=== PATIENT | male | born 1940 | race Caucasian/White ===

== ENCOUNTER → 2018-02-10 09:02 | Outpatient (CLI) | payer MEDICARE, OTHER, SELFPAY ==
--- NOTE | 2018-02-10 10:16 | DI.CT.S_ITS ---
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 TECHNIQUE: After the administration of oral and intravenous contrast, 5 mm thick sections acquired from the lung apices to the symphysis. 5 mm coronal and sagittal reformats were performed, with additional 7 mm coronal MIP reformats through the lungs. For radiation dose reduction, the following was used: automated exposure control, adjustment of mA and/or kV according to patient size. COMPARISON: [facility], [place], PET/CT WHOLE BODY EXTENDED, 11/18/2017, 10:24. [facility], [place], ABDOMEN/PELVIS WITH CONTRAST, 10/08/2017, 12:43. [facility], [place], CT IVP, 10/27/2005, 10:54. FINDINGS: Image quality: Excellent. CHEST: Lungs and pleura: No acute airspace opacities. There is centrally calcified right midlung granuloma. No pleural effusions or pneumothorax. Central and peripheral airways appear patent and normal in caliber. Mediastinum: Heart size is normal, with mild coronary artery atherosclerosis. No pericardial effusion. No mediastinal or hilar adenopathy by size criteria. Thoracic aorta and central pulmonary arteries are normal in size. Esophagus is normal in caliber. No hiatal hernia. Chest wall: Left PICC is present. No axillary or supraclavicular adenopathy by size criteria. Thyroid gland is normal in size. ABDOMEN: Solid organs: Liver is normal in size. 1.9 cm inferior right hepatic lobe simple cyst is again noted. Scattered additional punctate liver lesions are too small to further characterize, likely tiny cysts. Gallbladder is surgically absent. Biliary system is non dilated. Pancreas enhances normally. Spleen is normal in size and enhancement. No adrenal nodules. Kidneys demonstrate normal size and enhancement, without hydronephrosis. Peritoneum and bowel: Bowel loops demonstrate normal wall thickness and caliber. The appendix appears normal. There is mild sigmoid colon diverticulosis. No free fluid or air. Nodes and vessels: Confluent central mesenteric adenopathy has decreased in size from 14.5 x 9.3 cm, down to 9.1 x 4.0 cm. No new retroperitoneal or mesenteric adenopathy by size criteria. Aorta and inferior vena cava are normal in size, with moderate aortoiliac atherosclerosis. Circumaortic left renal veins are incidentally noted. Miscellaneous: No ventral hernias. PELVIS: Genitourinary: Bladder wall thickness is normal. Prostate gland is mildly prominent in overall size, with enhancing protruding nodule into the bladder base. Miscellaneous: No inguinal hernias or adenopathy. Bones: No suspicious bony lesions. No vertebral body compression fractures. IMPRESSION: 1. Confluent central mesenteric adenopathy has decreased but not completely resolved, consistent with partial tumor response to therapy. 2. Mild sigmoid colon diverticulosis. 3. Protruding prostate nodule into the bladder base probably reflects benign prostatic hyperplasia. Prostate carcinoma cannot be excluded based on CT imaging appearances. 4. 1.9 cm incidental inferior right hepatic lobe simple cyst. Dictated by: Tobi Umana M.D. on 02/10/2018 at 11:07 Approved by: Tobi Umana M.D. on 02/10/2018 at 11:20
== END ==
PROVIDERS: Family Provider Family Medicine; PCP Family Medicine; Visit Provider Internal Medicine Hematology & Oncology
DX: C85.90 Non-Hodgkin lymphoma, unspecified, unspecified site (principal); K57.30 Diverticulosis of large intestine without perforation or abscess without bleeding; N40.0 Benign prostatic hyperplasia without lower urinary tract symptoms; K76.89 Other specified diseases of liver
CPT/HCPCS: 71260; 74177; Q9967

== ENCOUNTER → 2018-05-06 11:00 | Outpatient (CLI) | payer MEDICARE, OTHER, SELFPAY ==
[2018-05-06 12:08] LABS: Add Manual Diff / Slide Review NO; Basophils Percent Auto 0.3 % (0-2); Eosinophils Percent Auto 7.2 % (2-4); Hematocrit 38.2 % (41-53); Lymphocytes Percent Auto 11.6 % (25-40); Mean Corpuscular Hemoglobin 29.6 PG (26-34); Mean Corpuscular Volume 87.1 fL (80-100); Monocytes Percent Auto 15.1 % (3-14); Neutrophils Absolute Auto 3300 /uL (3000-5900); Neutrophils Percent Auto 65.8 % (50-75); Platelet Count 203 X10^3/uL (150-400); Red Blood Cell Count 4.39 X10^6/uL (4.5-5.9); Red Cell Distribution Width 16.6 % (11.6-14.8)
[2018-05-06 12:28] LABS: Alanine Aminotransferase 36 IU/L (21-72); Albumin 3.9 g/dL (3.5-5.0); Albumin Globulin Ratio 1.3 (1.0-2.8); Alkaline Phosphatase 64 U/L (38-126); Aspartate Aminotransferase 33 IU/L (17-59); Bilirubin Total 0.8 mg/dL (0.2-1.3); Blood Urea Nitrogen 16 mg/dL (9-20); Calcium 9.1 mg/dL (8.4-10.2); Carbon Dioxide 30 mmol/L (22-32); Chloride 104 mmol/L (98-107); Estimated Glomerular Filt Rate > 60.0 mL/min (>60); Glucose 104 mg/dL (80-110); HEMOLYSIS < 15 (0-50); Lactate Dehydrogenase 456 U/L (313-618); Potassium 4.5 mmol/L (3.4-5.1); Sodium 144 mmol/L (137-145); Total Protein 6.9 g/dL (6.3-8.2)
--- NOTE | 2018-05-06 15:05 | PC.NURSE ---
Labs stable when compared to 03/16 and 04/12 results. follow up with provider on 05/12
== END ==
PROVIDERS: Nurse Practitioner Gerontology; Family Provider Family Medicine; PCP Family Medicine; Visit Provider Internal Medicine Hematology & Oncology
DX: C85.80 Other specified types of non-Hodgkin lymphoma, unspecified site (principal)
CPT/HCPCS: 36415; 80053; 83615; 85025

== ENCOUNTER 2018-09-17 09:39 | Day surgery (SDC) | payer MEDICARE, OTHER, SELFPAY ==
[2018-09-17 09:57] VITALS: BP 154/85; PULSE 97; RESP 18; TEMP 36.5; O2SAT 99; BMI 24.3
[2018-09-17] MEDS: SODIUM CHLORIDE 0.9% 1,000 ML 200 ML IV (09:57)
--- NOTE | 2018-09-17 11:37 | PM.HP.1 ---
History of Present Illness Date Patient Seen: 09/17/18 Time Patient Seen: 11:37 Chief complaint: [id number] Narrative: Patient is a gentleman here for screening colonoscopy. Last exam was 5 and half years ago. He has had polyps removed in the past. Patient History Medical History GERD (gastroesophageal reflux disease) (Chronic) History of deviated nasal septum (Chronic) Hypertension (Chronic) Surgical History Hx laparoscopic cholecystectomy (Chronic) Family & Social History Family History: Reviewed 09/17/18 by Drew Atkins MD Social History: household members spouse Meds Home Medications Medication Instructions Recorded Confirmed Type aspirin 81 mg PO QDAY #0 12/24/12 09/17/18 History doxazosin [Cardura] 8 mg PO QDAY #0 12/24/12 09/17/18 History candesartan [Atacand] 4 mg PO QDAY #0 10/22/17 09/17/18 History lansoprazole 30 mg PO QDAY #0 10/22/17 09/17/18 History trazodone 50 mg PO PRN PRN #0 11/09/17 07/06/18 History triamcinolone acetonide 1 lalo TOPICAL PRN PRN #0 11/09/17 07/06/18 History B.breve-L.acid-L.rham-S.thermo 1 tab PO DAILY 01/19/18 09/17/18 History [Probiotic] melatonin 1 mg PO BEDTIME PRN MDD 1 01/19/18 09/17/18 History multivitamin 1 tab PO DAILY 01/19/18 09/17/18 History Allergies Allergy/AdvReac Type Severity Reaction Status Date / Time No Known Drug Allergies Allergy Verified 09/17/18 10:15 Review of Systems Review of Systems All systems reviewed & are unremarkable except as noted in HPI and below Exam Vital Signs (past 8 hours): - 09/17/18 09:57 Temperature 97.7 F Pulse Rate 97 H Respiratory Rate 18 Blood Pressure 154/85 H Pulse Oximetry 99 Oxygen Delivery Method Room Air Narrative Exam Narrative: Co Operative no apparent distress. Lungs are clear to auscultation. No rales or rhonchi. Heart regular rate and rhythm without murmur gallop. Abdomen is soft nontender without mass. Alert oriented x3. Assessment & Plan Plan: Assessment/Plan Narrative: Plan colonoscopy. I have discussed the procedure and the rationale with the patient including risks of bleeding, perforation which would necessitate a major operation, failure to find remove all lesions and the potential to tattoo. They appeared to understand and wished to proceed.
--- NOTE | 2018-09-17 11:43 | PM.PREOP ---
Pre-operative Note Interval Note History & Physical reviewed/Exam performed by Physician: Yes Changes to H&P: No ASA Class (for procedural sedation): II
[2018-09-17] MEDS: MIDAZOLAM 5 MG/5 ML VIAL IV (11:54)
[2018-09-17] MEDS: fentaNYL 250 MCG/5 ML INJ IV (11:55)
--- NOTE | 2018-09-17 12:05 | PM.OP.ENDO ---
Operative Date/Time/Diagnoses Date of procedure: 09/17/18 Time of procedure: 12:05 Post-op diagnosis: same (Scattered diverticulosis. Few in number but throughout the colon.) Procedure & Clinicians Study performed: Colonoscopy Same procedure as scheduled: Yes Indications: Screening Surgeon: Drew Atkins Procedure Notes SCOAP/Timeout: Performed Procedure in detail: The patient was placed in the left lateral decubitus position and underwent IV sedation directed by the surgeon consisting of fentanyl and Versed. Digital exam was unremarkable except he has an enlarged prostate. The scope was inserted and advanced through the rectum into the sigmoid, descending, transverse, and ascending colon. Pressure was applied we made our way into the cecum. The cecum was reached identified by the ileocecal valve and the appendiceal opening. The ileocecal valve was successfully cannulated. The terminal ileum was normal in appearance. The scope was gradually brought out. No Polyps were found. The scope ultimately was retroflexed in the rectum. The appearance was normal. The scope was removed and the patient tolerated the procedure well Scope withdrawal time: 6.75 min Sedation minutes: 16 Findings: diverticulosis (Few in number but scattered throughout the colon) Specimen(s): none sent Complications: none Recommendations: Colonscopy in 5 years (Due to personal history of polyps) Follow up: as needed Disposition: PACU
[2018-09-17 12:07] VITALS: BP 113/67; PULSE 80; RESP 14; TEMP 36.5; O2SAT 95
[2018-09-17 12:13] VITALS: BP 117/72; PULSE 82; RESP 14; O2SAT 94
[2018-09-17 12:22] VITALS: BP 123/71; PULSE 80; RESP 12; O2SAT 95
[2018-09-17 12:28] VITALS: BP 118/64; PULSE 73; RESP 14; TEMP 36.7; O2SAT 95
[2018-09-17 12:51] VITALS: BP 125/72; PULSE 66; RESP 18; O2SAT 97
== END 2018-09-17 13:00 | disposition home or self-care (01) ==
PROVIDERS: Family Provider Family Medicine; PCP Family Medicine; Visit Provider Specialist
PROC: 0DJD8ZZ Inspection of Lower Intestinal Tract, Via Natural or Artificial Opening Endoscopic (ICD-10-PCS; CPT 45378; principal; 2018-09-17 10:45)
DX: Z86.010 Personal history of colon polyps (principal); K57.30 Diverticulosis of large intestine without perforation or abscess without bleeding; I10 Essential (primary) hypertension
CPT/HCPCS: G0105; 99152; J2250; J3010

== ENCOUNTER → 2019-01-01 10:06 | Outpatient (CLI) | payer MEDICARE, OTHER, SELFPAY | PROVIDERS: Family Provider Family Medicine; PCP Family Medicine; Visit Provider Physician Assistant | DX: R30.0 Dysuria (principal) | CPT/HCPCS: 87086 ==

== ENCOUNTER → 2019-07-22 09:01 | Outpatient (CLI) | payer MEDICARE, OTHER, SELFPAY | PROVIDERS: Family Provider Family Medicine; PCP Family Medicine; Visit Provider Nurse Practitioner | DX: R31.9 Hematuria, unspecified (principal) | CPT/HCPCS: 87086 ==

== ENCOUNTER → 2019-07-22 09:47 | Outpatient (CLI) | payer MEDICARE, OTHER, SELFPAY ==
[2019-07-22 10:18] LABS: Add Manual Diff / Slide Review NO; Basophils Absolute Auto 0 /uL (0-100); Basophils Percent Auto 0.2 % (0-2); Eosinophils Absolute Auto 100 /uL (0-450); Eosinophils Percent Auto 1.3 % (2-4); Hematocrit 44.6 % (41-53); Hemoglobin 14.9 g/dL (13.5-17.5); Lymphocytes Absolute Auto 600 /uL (1100-4500); Lymphocytes Percent Auto 9.2 % (25-40); Mean Corpuscular HGB Conc 33.4 % (30-36); Mean Corpuscular Hemoglobin 28.3 PG (26-34); Mean Corpuscular Volume 84.8 fL (80-100); Monocytes Absolute Auto 600 /uL (0-900); Neutrophils Absolute Auto 5200 /uL (1500-7000); Neutrophils Percent Auto 80.3 % (50-75); Platelet Count 228 X10^3/uL (150-400); Red Blood Cell Count 5.26 X10^6/uL (4.5-5.9); Red Cell Distribution Width 14.5 % (11.6-14.8); White Blood Cell Count 6.4 X10^3/uL (4.5-11.0)
[2019-07-22 11:10] LABS: Alanine Aminotransferase 23 IU/L (<50); Albumin 4.3 g/dL (3.5-5.0); Albumin Globulin Ratio 1.5 (1.0-2.8); Alkaline Phosphatase 55 U/L (38-126); Aspartate Aminotransferase 24 IU/L (17-59); BUN Creatinine Ratio 18.2 (6-22); Bilirubin Total 1.1 mg/dL (0.2-1.3); Blood Urea Nitrogen 20 mg/dL (9-20); Calcium 9.4 mg/dL (8.4-10.2); Carbon Dioxide 29 mmol/L (22-32); Chloride 105 mmol/L (98-107); Estimated Glomerular Filt Rate > 60.0 mL/min (>60); Globulin 2.9 g/dL (1.7-4.1); Glucose 89 mg/dL (80-110); HEMOLYSIS < 15 (0-50); Potassium 4.2 mmol/L (3.4-5.1); Sodium 142 mmol/L (137-145); Total Protein 7.2 g/dL (6.3-8.2)
[2019-07-25 12:05] LABS: Prostate Specific Antigen 3.18 ng/mL (0.10-4.00)
== END ==
PROVIDERS: Family Provider Family Medicine; PCP Family Medicine; Visit Provider Nurse Practitioner
DX: R31.9 Hematuria, unspecified (principal); C85.90 Non-Hodgkin lymphoma, unspecified, unspecified site
CPT/HCPCS: 36415; 80053; 84153; 85025; 87086

== ENCOUNTER → 2019-09-13 08:53 | Outpatient (CLI) | payer MEDICARE, OTHER, SELFPAY ==
[2019-09-13 09:43] LABS: Alanine Aminotransferase 22 IU/L (<50); Albumin 4.3 g/dL (3.5-5.0); Albumin Globulin Ratio 1.7 (1.0-2.8); Alkaline Phosphatase 60 U/L (38-126); Aspartate Aminotransferase 25 IU/L (17-59); BUN Creatinine Ratio 15.8 (6-22); Bilirubin Total 0.7 mg/dL (0.2-1.3); Blood Urea Nitrogen 19 mg/dL (9-20); Calcium 9.2 mg/dL (8.4-10.2); Carbon Dioxide 28 mmol/L (22-32); Chloride 105 mmol/L (98-107); Estimated Glomerular Filt Rate 58.7 mL/min (>60); Globulin 2.6 g/dL (1.7-4.1); Glucose 103 mg/dL (80-110); HEMOLYSIS < 15 (0-50); Potassium 4.1 mmol/L (3.4-5.1); Sodium 141 mmol/L (137-145); Total Protein 6.9 g/dL (6.3-8.2)
--- NOTE | 2019-09-13 10:06 | DI.CT.S_ITS ---
PROCEDURE: CT CHEST ABD PEL W CON INDICATIONS: follow up lymphoma TECHNIQUE: After the administration of oral and intravenous contrast, 5 mm thick sections acquired from the lung apices to the symphysis. 5 mm coronal and sagittal reformats were performed, with additional 7 mm coronal MIP reformats through the lungs. For radiation dose reduction, the following was used: automated exposure control, adjustment of mA and/or kV according to patient size. COMPARISON: [facility], [place], ABDOMEN/PELVIS WITH CONTRAST, 10/08/2017, 12:43. [place], [place], PET/CT WHOLE BODY EXTENDED, 11/18/2017, 10:24. [place], [place], PET NECK TO MID THIGH, 05/07/2018, 9:52. [facility], [place], CT CHEST ABD PEL W CON, 02/10/2018, 10:02. FINDINGS: Image quality: Excellent. CHEST: Lungs and pleura: There is a 7 mm nodule in the right middle lobe, unchanged. A 4 mm lingular nodule is also stable. No acute airspace opacities. No pleural effusions or pneumothorax. Central and peripheral airways appear patent and normal in caliber. Mediastinum: Heart size is normal. No pericardial effusion. No mediastinal or hilar adenopathy by size criteria. Thoracic aorta and central pulmonary arteries are normal in size. Esophagus is normal in caliber. Small hiatal hernia. Chest wall: No axillary or supraclavicular adenopathy by size criteria. Thyroid gland is normal. ABDOMEN: Solid organs: Multiple low density nodules seen liver, secondary hepatic cyst. Liver is normal in size and enhancement. Gallbladder is surgically absent. Biliary system is non dilated. Pancreas enhances normally. Spleen is normal in size and enhancement. No adrenal nodules. Kidneys demonstrate normal size and enhancement, without hydronephrosis. Peritoneum and bowel: Bowel loops demonstrate normal wall thickness and caliber. There are scattered colonic diverticula. No free fluid or air. Nodes and vessels: No retroperitoneal adenopathy by size criteria. There is irregular mesenteric thickening. A 1.7 cm nodule in the mesenteric in the left abdoment, which demonstrates interval decreased in size (previously measured to 2.2 cm on 05/07/2018 and 2.8 cm on 02/10/2018). Aorta and inferior vena cava are normal in size. Miscellaneous: No ventral hernias. PELVIS: Genitourinary: Bladder wall thickness is normal. Prostate is enlarged. Again noted is a protruding nodule in the bladder base at midline, presumably related to enlarged prostate. Miscellaneous: No inguinal hernias or adenopathy. Bones: No suspicious bony lesions. No vertebral body compression fractures. IMPRESSION: 1. There is residual mesenteric thickening. A 1.7 cm mesenteric nodule has shown progressive decrease in size. No new lymphadenopathy in thorax, abdomen or pelvis. 2. Stable pulmonary nodules. 3. Diverticulosis without diverticulitis. 4. Prostate enlargement. There is a protruding nodule in the bladder base at midline, presumably related to enlarged prostate. Dictated by: Cathryn Teran M.D. on 09/13/2019 at 17:12 Approved by: Cathryn Teran M.D. on 09/13/2019 at 17:58
== END ==
PROVIDERS: Family Provider Family Medicine; PCP Family Medicine
DX: C85.90 Non-Hodgkin lymphoma, unspecified, unspecified site (principal); R91.8 Other nonspecific abnormal finding of lung field; K57.90 Diverticulosis of intestine, part unspecified, without perforation or abscess without bleeding; K76.89 Other specified diseases of liver; N40.0 Benign prostatic hyperplasia without lower urinary tract symptoms; Z90.49 Acquired absence of other specified parts of digestive tract
CPT/HCPCS: 36415; 71260; 74177; 80053; Q9967

== ENCOUNTER → 2019-10-18 10:32 | Outpatient (CLI) | payer MEDICARE, OTHER, SELFPAY ==
--- NOTE | 2019-10-18 10:36 | DI.RAD.S_ITS ---
PROCEDURE: XR CHEST 2V INDICATIONS: r/o pneumonia TECHNIQUE: 2 views of the chest were acquired. COMPARISON: [facility], , CHEST 1 VIEW, 01/22/2014, 19:22. FINDINGS: Surgical changes and devices: Post cholecystectomy clips are noted in the right upper abdomen. Lungs and pleura: Lungs are clear. No pleural effusions or pneumothorax. Mediastinum: Mediastinal contours are normal. Heart size is normal. Bones and chest wall: No suspicious bony abnormalities. Soft tissues appear unremarkable. IMPRESSION: Stable radiographic evaluation of the chest without acute cardiopulmonary abnormalities or focal airspace disease. Dictated by: Rashad Patterson M.D. on 10/18/2019 at 14:36 Approved by: Rashad Patterson M.D. on 10/18/2019 at 14:37
== END ==
PROVIDERS: Family Provider Family Medicine; PCP Family Medicine; Referring Provider Physician Assistant; Visit Provider Physician Assistant
DX: J40 Bronchitis, not specified as acute or chronic (principal)
CPT/HCPCS: 71046

== ENCOUNTER → 2020-07-17 10:50 | Outpatient (CLI) | payer MEDICARE, OTHER, SELFPAY ==
--- NOTE | 2020-07-17 | DI.RAD.S_ITS ---
PROCEDURE: XR LUMBAR SPINE 2-3V INDICATIONS: low back pain TECHNIQUE: 3 views of the lumbar spine were acquired. COMPARISON: None. FINDINGS: Bones: 5 [id number] vertebrae are present. There is approximately 10? of convex right lumbar spine scoliosis. Mild L1-L2, L2-L3 and L3-L4 retrolisthesis. No vertebral body compression fractures. No suspicious bony lesions. Severe L1-L2 and L2-L3 degenerate disc disease. Moderate L3-L4 and L4-L5 degenerative disc disease. Mild L5-S1 degenerative disc disease. Moderate L3-L4, L4-L5 and L5-S1 facet arthropathy. Soft tissues: Overlying bowel gas pattern is normal. No suspicious soft tissue calcifications. Cholecystectomy clips. IMPRESSION: 1. Convex right scoliosis. 2. Multilevel degenerative disease. 3. Multilevel facet arthropathy. 4. No fracture. No acute osseous lesion. If symptoms and/or clinical suspicion for pathology persists, evaluation with MRI may be helpful for further assessment. Dictated by: Lavern Hoffman MD, PhD on 07/17/2020 at 17:07 Approved by: Lavern Hoffman MD, PhD on 07/17/2020 at 17:09
== END ==
PROVIDERS: Family Provider Family Medicine; PCP Family Medicine; Referring Provider Family Medicine; Visit Provider Family Medicine
DX: M54.5 Low back pain (principal); M41.86 Other forms of scoliosis, lumbar region; M51.36 Other intervertebral disc degeneration, lumbar region; M51.37 Other intervertebral disc degeneration, lumbosacral region; M47.816 Spondylosis without myelopathy or radiculopathy, lumbar region; M47.817 Spondylosis without myelopathy or radiculopathy, lumbosacral region
CPT/HCPCS: 72100

== ENCOUNTER 2020-08-29 09:45 | Outpatient (RCR) | payer MEDICARE, OTHER, SELFPAY ==
--- NOTE | 2020-06-21 10:46 | PT.OIE ---
Current Diagnoses Pain in right knee (06/21/20) Low back pain (06/21/20) Abnormal posture (06/21/20) Weakness (06/21/20) Past Medical History (Last Updated 09/26/19 @ 12:13 by Anna Cintron PA-C) Bronchitis (Acute) Conjunctivitis (Acute) GERD (gastroesophageal reflux disease) (Chronic) History of deviated nasal septum (Chronic) Hypertension (Chronic) Past Surgical History (Last Reviewed 07/22/19 @ 09:42 by FRANCO Landa) Hx laparoscopic cholecystectomy (Chronic) Visit Care Team Role Provider Type Jose Cruz Short MD Attending Provider Physician Family Provider Primary Care Provider Referring Provider Specialty: [facility] Practice Address: [address] [place] [address] [place], [place], [facility] Email: [email or web address] [facility] Initial Evaluation PT-OP-A Visit Information Start: 06/21/20 08:02 Freq: Status: Active Protocol: Document 06/21/20 08:15 [facility] (Rec: 06/21/20 10:20 [facility] [id number]) Out-Patient Physical Therapy Visit Information Visit Information Visit Type Initial Evaluation Visit Note 09/16 Visit Start Time 09:05 Visit Stop Time 10:10 Total Visit Minutes 65 Visit Number 1 Number of GRIP Visits 0 PT-OP-B Current Condition Start: 06/21/20 08:02 Freq: Status: Active Protocol: Document 06/21/20 08:15 [facility] (Rec: 06/21/20 10:20 [facility] [id number]) Current Condition History of Current Condition Onset Date mid Apr Current Complaints med R knee, LBP History of Current Condition Pt reports knee and back pain started aroundthe same timea nd they appear around the same time. Pt reports he was doing a lot of painting and climbing and moving ladders and also does knee ext & flex machines. He does those exercises often though feels like ladder was more likely culpret. Sometimes when stretching and doing exercises he feels the pain a little bit. Pt tries to do windshield wiper exercise but that is painful to LB. Pt had a fall in ' and fell and hit in LB and conclusion was osteoporosis. Pt reprots the odd thing is when he has clicking in LB when he walks ( can walk2-3 miles) that he feels on L side with RLE movement. Sometimes it is every RLE step sometimes more intermittent. Pt reprots feels like it is ligaments popping over bone. Pt bikes and hikes and can bike 20 miles without knee pain. Knee used ot bother him when driving Prior Treatments and Tests Chiropractor but min relief - Xrays done and chiropractor doesn't think it is nerve pain Treatment Goals Patient/Caregiver Goals Stay active and determine whats cuasing pain and clicking, dec pain Personal Factors Other Personal Factors That May Effect Non-Hodgkin's Lymphoma, Therapy/Recovery history of LBP, gallbladder removal PT-OP-C Subjective Start: 06/21/20 08:02 Freq: Status: Active Protocol: Document 06/21/20 08:15 [facility] (Rec: 06/21/20 10:20 [facility] [id number]) Patient Questionnaires Lower Extremity Functional Scale LEFS Score 77 Oswestry Low Back Index Oswestry Score 5/50 Oswestry Impairment 1 to 19% Impaired (Score 1-19) OP-PT Pain Assessment Location low back Pain Location Details Lumbar region Intensity 4 Scale Used Numeric (0 - 10) Description Aching Frequency Occasional Other Pain Aggravating Factors 1st thing in AM, crunches, carrying ladders Pain Alleviating Factors Medication Other Pain Alleviating Factors stretching R knee Pain Location Details med Intensity 3 Scale Used Numeric (0 - 10) Description With Movement Description- Other sometimes more sharp in certain positions Frequency Occasional Pain Duration only during activity Radiating Location occasional to lower leg Pain Aggravating Factors Walking,Stair Climbing Other Pain Aggravating Factors turn in certain directions, squatting down Pain Alleviating Factors Medication PT-OP-D Balance Start: 06/21/20 08:02 Freq: Status: Active Protocol: Document 06/21/20 08:15 [facility] (Rec: 06/21/20 10:20 [facility] [id number]) Balance Tests Single Limb Standing Single Limb- Right 7 sec Single Limb- Left 11 sec PT-OP-F Manual Assessment Start: 06/21/20 08:02 Freq: Status: Active Protocol: Document 06/21/20 08:15 [facility] (Rec: 06/21/20 10:20 [facility] [id number]) Manual Assessments Soft Tissue Assessment Soft Tissue Mobility Assessment med joint line tenderness Joint Mobility Assessment Joint Mobility Assessment L iliac crest slightly higher; equal greater trochanters PT-OP-G Mobility & Gait Start: 06/21/20 08:02 Freq: Status: Active Protocol: Document 06/21/20 08:15 [facility] (Rec: 06/21/20 10:20 [facility] [id number]) OP Gait Assessment Comments Gait Comments dec push off B; dec foot clearance PT-OP-J Posture/Palpation/Skin Start: 06/21/20 08:02 Freq: Status: Active Protocol: Document 06/21/20 08:15 [facility] (Rec: 06/21/20 10:20 [facility] [id number]) Posture Evaluation Kerry Postural Classification System Kerry Postural Classifications Posterior/Anterior Vertebral Compression Test 2 Elbow Flexion Test 2 Lumbar Protective Mechanism Left AP 2 Lumbar Protective Mechanism Right AP 2 Lumbar Protective Mechanism Left PA 2 Lumbar Protective Mechanism Right PA 2 PT-OP-K Range of Motion Start: 06/21/20 08:02 Freq: Status: Active Protocol: Document 06/21/20 08:15 [facility] (Rec: 06/21/20 10:20 [facility] [id number]) Lumbar Spine Range of Motion Lumbar Spine Active Degrees Flexion 60 Extension 22 Rotation Left 64 Rotation Right 63 Lateral Flexion Left 18 Lateral Flexion Right 19 Comments L discomfort w/R SB Knee Goniometric Range of Motion Knee Right Flexion Active (degrees) 133 Extension Active (degrees) 4 Comments pain w/ext Left Flexion Active (degrees) 137 Extension Active (degrees) 2 PT-OP-L Special Tests Start: 06/21/20 08:02 Freq: Status: Active Protocol: Document 06/21/20 08:15 [facility] (Rec: 06/21/20 10:20 [facility] [id number]) Special Tests Knee Special Tests Straight Leg Raise Test Results mod HS tightness on L with min on R PT-OP-M Strength Start: 06/21/20 08:02 Freq: Status: Active Protocol: Document 06/21/20 08:15 [facility] (Rec: 06/21/20 10:20 [facility] [id number]) Hip Strength Hip Manual Muscle Testing Right Flexion (L2) 4 Good Extension (S1) 4 Good Abduction 4+ Good+ Adduction 5 Normal External Rotation 4 Good Internal Rotation 4 Good Left Flexion (L2) 4 Good Extension (S1) 4- Good- Abduction 5 Normal Adduction 5 Normal External Rotation 4 Good Internal Rotation 4 Good Comments pain LB with ext Knee Strength Knee Manual Muscle Testing Right Flexion (S2) 4+ Good+ Extension (L3) 5 Normal Left Flexion (S2) 5 Normal Extension (L3) 5 Normal Ankle/Foot Strength Ankle and Foot Manual Muscle Testing Right Dorsiflexion (L4) 5 Normal Plantarflexion (S1) 5 Normal Left Dorsiflexion (L4) 5 Normal Plantarflexion (S1) 5 Normal PT-OP-Q Treatments Start: 06/21/20 08:02 Freq: Status: Active Protocol: Document 06/21/20 08:15 [facility] (Rec: 06/21/20 10:20 [facility] [id number]) Self-Care/Home Management Treatment Education Other Education edu re: importance of posture & how back and knee mechanics can affect eachother. Discussed reasons why unlikely n pain as pt was concerned. Discussed how PT can help. Discussed palpable difference w/R VMO & why that is a problem PT-OP-T Assessment and Plan Start: 06/21/20 08:02 Freq: Status: Active Protocol: Document 06/21/20 08:15 [facility] (Rec: 06/21/20 10:20 [facility] [id number]) Physical Therapy Assessment Rehab Potential Rehabilitation Potential Good Evaluation Complexity Number of Personal Factors/Comorbidities 3 or More Number of Body Systems Impaired 4 or More Clinical Presentation at Evaluation Stable Impairments Impairments Activity Tolerance,Balance, Functional Activities, Functional Mobility,Gait,Pain, Posture,ROM,Soft Tissue Mobility,Strength Goals posture Short Term Goal (STG) Pt will demonstrate improved posture as shown by 4/5 on VCT to dec strain on back. STG Duration 07/22/20 Retirement Goal (LTG) Pt will demonstrate good lifting mecahnics in order to dec strain on backa nd knee. LTG Duration 08/21/20 activities [employer] Work[employer] Goal (LTG) Pt will be able to do all typical activities (walking, squatting, housework) without LBP or knee pain. LTG Duration 08/21/20 strength Short Term Goal (STG) Pt will be indep with appropriate stretching and strengthening program STG Duration 07/22/20 Retirement Goal (LTG) Pt will have 5/5 LE strength Assessment Summary Assessment Pt presents with LBP and R knee pain that had an onset in Apr with no specific injury. He has noted some improvement with his general stretching and exercising, but wants to work with PT to fully dec pain and limit clicking and have an appropriate strengthening and stretching exercise for his body. Pt would benefit from skilled PT to work on gait mechanics, exercise form and mechanics, strength of LEs and core and inc overall mobility. Physical Therapy Plan Frequency and Duration Frequency of Treatment 1-2x/weeks Duration of Treatment 2 months Plan of Care Start Date 06/21/20 Plan of Care End Date 08/21/20 Therapeutic Interventions Therapeutic Interventions Aquatic Therapy,Balance Training,Gait Training,Home Exercise Program,Joint Mobilizations,Manual Therapy, Neuromuscular Re-education, Patient/Caregiver Education, Self-Care/Home Management,Soft Tissue Mobilization,Taping, Therapeutic Activities, Therapeutic Exercises Modalities Cold Pack/Ice Massage,Hot Packs Next Visit Focus/Plan Next Note Type Treatment Note Next Visit Plan work on form w/knee ext & flex wt machines, teach stretching exercises & work on TA activiation & facilition & posture-wall posture
--- NOTE | 2020-06-21 10:46 | PT.OPPOC ---
Physical, Occupational & Speech Therapy At [facility] Current Diagnoses Pain in right knee (06/21/20) Low back pain (06/21/20) Abnormal posture (06/21/20) Weakness (06/21/20) Visit Care Team Role Provider Type Jose Cruz Short MD Attending Provider Physician Family Provider Primary Care Provider Referring Provider Specialty: Family [facility] Address: [address] [place] [address], [facility] [place], [facility] Email: Plan Of Care PT-OP-T Assessment and Plan Start: 06/21/20 08:02 Freq: Status: Active Protocol: Document 06/21/20 08:15 [facility] (Rec: 06/21/20 10:20 [facility] [id number]) Physical Therapy Assessment Rehab Potential Rehabilitation Potential Good Evaluation Complexity Number of Personal Factors/Comorbidities 3 or More Number of Body Systems Impaired 4 or More Clinical Presentation at Evaluation Stable Impairments Impairments Activity Tolerance,Balance, Functional Activities, Functional Mobility,Gait,Pain, Posture,ROM,Soft Tissue Mobility,Strength Goals posture Short Term Goal (STG) Pt will demonstrate improved posture as shown by 4/5 on VCT to dec strain on back. STG Duration 07/22/20 Detention Goal (LTG) Pt will demonstrate good lifting mecahnics in order to dec strain on backa nd knee. LTG Duration 08/21/20 activities Sheet Rock Installer Goal (LTG) Pt will be able to do all typical activities (walking, squatting, housework) without LBP or knee pain. LTG Duration 08/21/20 strength Short Term Goal (STG) Pt will be indep with appropriate stretching and strengthening program STG Duration 07/22/20 Sheet Rock Installer Goal (LTG) Pt will have 5/5 LE strength Assessment Summary Assessment Pt presents with LBP and R knee pain that had an onset in Apr with no specific injury. He has noted some improvement with his general stretching and exercising, but wants to work with PT to fully dec pain and limit clicking and have an appropriate strengthening and stretching exercise for his body. Pt would benefit from skilled PT to work on gait mechanics, exercise form and mechanics, strength of LEs and core and inc overall mobility. Physical Therapy Plan Frequency and Duration Frequency of Treatment 1-2x/weeks Duration of Treatment 2 months Plan of Care Start Date 06/21/20 Plan of Care End Date 08/21/20 Therapeutic Interventions Therapeutic Interventions Aquatic Therapy,Balance Training,Gait Training,Home Exercise Program,Joint Mobilizations,Manual Therapy, Neuromuscular Re-education, Patient/Caregiver Education, Self-Care/Home Management,Soft Tissue Mobilization,Taping, Therapeutic Activities, Therapeutic Exercises Modalities Cold Pack/Ice Massage,Hot Packs Next Visit Focus/Plan Next Note Type Treatment Note Next Visit Plan work on form w/knee ext & flex wt machines, teach stretching exercises & work on TA activiation & facilition & posture-wall posture Plan of Care Dates Plan of Care Start Date 06/21/20 Plan of Care End Date 08/21/20 Electronically Signed by: Liz Knight, PT 06/21/20 1046 Please Sign and Return: I have reviewed this Plan of Care and certify that the skilled therapy services above are required to meet the patient?s needs. Physician Signature Date Printed Name and Credentials Clinical Instructor Signature Printed Name and Credentials
--- NOTE | 2020-06-27 11:01 | PT.OTN ---
Current Diagnoses Pain in right knee (06/27/20) Low back pain (06/27/20) Abnormal posture (06/27/20) Weakness (06/27/20) Physical Therapy Treatment Note PT-OP-A Visit Information Start: 06/21/20 08:02 Freq: Status: Active Protocol: Document 06/27/20 09:55 [facility] (Rec: 06/27/20 11:00 [facility] [id number]) Out-Patient Physical Therapy Visit Information Visit Information Visit Type Treatment Note Visit Note 10/17 Visit Start Time 09:52 Visit Stop Time 10:36 Total Visit Minutes 44 Visit Number 2 Number of RESTAURANT HOURLY TEAM MEMBER Visits 0 PT-OP-B Current Condition Start: 06/21/20 08:02 Freq: Status: Active Protocol: Document 06/21/20 08:15 [facility] (Rec: 06/21/20 10:20 [facility] [id number]) Current Condition History of Current Condition Onset Date mid Apr Current Complaints med R knee, LBP History of Current Condition Pt reports knee and back pain started aroundthe same timea nd they appear around the same time. Pt reports he was doing a lot of painting and climbing and moving ladders and also does knee ext & flex machines. He does those exercises often though feels like ladder was more likely culpret. Sometimes when stretching and doing exercises he feels the pain a little bit. Pt tries to do windshield wiper exercise but that is painful to LB. Pt had a fall in '98 and fell and hit in LB and conclusion was osteoporosis. Pt reprots the odd thing is when he has clicking in LB when he walks ( can walk2-3 miles) that he feels on L side with RLE movement. Sometimes it is every RLE step sometimes more intermittent. Pt reprots feels like it is ligaments popping over bone. Pt bikes and hikes and can bike 20 miles without knee pain. Knee used ot bother him when driving Prior Treatments and Tests Chiropractor but min relief - Xrays done and chiropractor doesn't think it is nerve pain Treatment Goals Patient/Caregiver Goals Stay active and determine whats cuasing pain and clicking, dec pain Personal Factors Other Personal Factors That May Effect Non-Hodgkin's Lymphoma, Therapy/Recovery history of LBP, gallbladder removal PT-OP-C Subjective Start: 06/21/20 08:02 Freq: Status: Active Protocol: Document 06/27/20 09:55 [facility] (Rec: 06/27/20 11:00 [facility] [id number]) OP-PT Subjective Patient Comments Patient Comments Pt reports he found that he did not get clicking when he bent over at back PT-OP-D Balance Start: 06/21/20 08:02 Freq: Status: Active Protocol: Document 06/21/20 08:15 [facility] (Rec: 06/21/20 10:20 [facility] [id number]) Balance Tests Single Limb Standing Single Limb- Right 7 sec Single Limb- Left 11 sec PT-OP-F Manual Assessment Start: 06/21/20 08:02 Freq: Status: Active Protocol: Document 06/21/20 08:15 [facility] (Rec: 06/21/20 10:20 [facility] [id number]) Manual Assessments Soft Tissue Assessment Soft Tissue Mobility Assessment med joint line tenderness Joint Mobility Assessment Joint Mobility Assessment L iliac crest slightly higher; equal greater trochanters PT-OP-G Mobility & Gait Start: 06/21/20 08:02 Freq: Status: Active Protocol: Document 06/21/20 08:15 [facility] (Rec: 06/21/20 10:20 [facility] [id number]) OP Gait Assessment Comments Gait Comments dec push off B; dec foot clearance PT-OP-J Posture/Palpation/Skin Start: 06/21/20 08:02 Freq: Status: Active Protocol: Document 06/21/20 08:15 [facility] (Rec: 06/21/20 10:20 [facility] [id number]) Posture Evaluation Kerry Postural Classification System Kerry Postural Classifications Posterior/Anterior Vertebral Compression Test 2 Elbow Flexion Test 2 Lumbar Protective Mechanism Left AP 2 Lumbar Protective Mechanism Right AP 2 Lumbar Protective Mechanism Left PA 2 Lumbar Protective Mechanism Right PA 2 PT-OP-K Range of Motion Start: 06/21/20 08:02 Freq: Status: Active Protocol: Document 06/21/20 08:15 [facility] (Rec: 06/21/20 10:20 [facility] [id number]) Lumbar Spine Range of Motion Lumbar Spine Active Degrees Flexion 60 Extension 22 Rotation Left 64 Rotation Right 63 Lateral Flexion Left 18 Lateral Flexion Right 19 Comments L discomfort w/R SB Knee Goniometric Range of Motion Knee Right Flexion Active (degrees) 133 Extension Active (degrees) 4 Comments pain w/ext Left Flexion Active (degrees) 137 Extension Active (degrees) 2 PT-OP-L Special Tests Start: 06/21/20 08:02 Freq: Status: Active Protocol: Document 06/21/20 08:15 [facility] (Rec: 06/21/20 10:20 [facility] [id number]) Special Tests Knee Special Tests Straight Leg Raise Test Results mod HS tightness on L with min on R PT-OP-M Strength Start: 06/21/20 08:02 Freq: Status: Active Protocol: Document 06/21/20 08:15 [facility] (Rec: 06/21/20 10:20 [facility] [id number]) Hip Strength Hip Manual Muscle Testing Right Flexion (L2) 4 Good Extension (S1) 4 Good Abduction 4+ Good+ Adduction 5 Normal External Rotation 4 Good Internal Rotation 4 Good Left Flexion (L2) 4 Good Extension (S1) 4- Good- Abduction 5 Normal Adduction 5 Normal External Rotation 4 Good Internal Rotation 4 Good Comments pain LB with ext Knee Strength Knee Manual Muscle Testing Right Flexion (S2) 4+ Good+ Extension (L3) 5 Normal Left Flexion (S2) 5 Normal Extension (L3) 5 Normal Ankle/Foot Strength Ankle and Foot Manual Muscle Testing Right Dorsiflexion (L4) 5 Normal Plantarflexion (S1) 5 Normal Left Dorsiflexion (L4) 5 Normal Plantarflexion (S1) 5 Normal PT-OP-Q Treatments Start: 06/21/20 08:02 Freq: Status: Active Protocol: Document 06/27/20 09:55 [facility] (Rec: 06/27/20 11:00 [facility] [id number]) Cardio Equipment Bicycle (Upright) Duration (Minutes) 4 Resistance 10 Seat Position 7 Gym Equipment Cable Column (Body Solid) Rows Resistance 30# Reps/Time 15 Leg Curl Resistance 30# Reps/Time 15 Leg Extension Resistance 30# B 10# single leg Reps/Time 10 ea Therapeutic Exercises Supine Exercises stretch Supine Exercise Name HS Side bilateral Reps/Minutes 30 sec bridge Side bilateral Reps/Minutes 15 Standing Exercises wall posture Standing Exercise Name w/modified pivot prone UE Side bilateral Reps/Minutes 15 Manual Therapy Treatment Soft Tissue Mobilization TFL Mobilization Type Strumming Intensity/Depth Moderate Body Position Supine Joint Mobilizations hip Joint L inf glide FM Body Position Supine Self-Care/Home Management Treatment Education Other Education edu to hold off from very advance abdomenal exercises and avoid back ext; edu to do gentle w/exercises & slow controlled motion, improtance of posture PT-OP-T Assessment and Plan Start: 06/21/20 08:02 Freq: Status: Active Protocol: Document 06/27/20 09:55 [facility] (Rec: 06/27/20 11:00 [facility] [id number]) Physical Therapy Assessment Goals posture Short Term Goal (STG) Pt will demonstrate improved posture as shown by 4/5 on VCT to dec strain on back. STG Duration 07/22/20 Halfway Goal (LTG) Pt will demonstrate good lifting mecahnics in order to dec strain on backa nd knee. LTG Duration 08/21/20 activities Platform Loader Goal (LTG) Pt will be able to do all typical activities (walking, squatting, housework) without LBP or knee pain. LTG Duration 08/21/20 strength Short Term Goal (STG) Pt will be indep with appropriate stretching and strengthening program STG Duration 07/22/20 Platform Loader Goal (LTG) Pt will have 5/5 LE strength Assessment Summary Assessment Pt had pain in L lat leg with B hip flex. Attempted to work on hip gliding d/t dec hip ROM before sacrum and innominate moved which helped with hip range but pt still had lat leg pain with hip flex. he required cuieng during all exercises for posture, slowing down and contorlling motion. Physical Therapy Plan Frequency and Duration Frequency of Treatment 1-2x/weeks Duration of Treatment 2 months Plan of Care Start Date 06/21/20 Plan of Care End Date 08/21/20 Next Visit Focus/Plan Next Note Type Treatment Note Next Visit Plan review exercises, manual for soft tissue and joint mobility , discuss sitting posture
--- NOTE | 2020-06-29 12:45 | PT.OTN ---
Current Diagnoses Pain in right knee (06/29/20) Low back pain (06/29/20) Abnormal posture (06/29/20) Weakness (06/29/20) Physical Therapy Treatment Note PT-OP-A Visit Information Start: 06/21/20 08:02 Freq: Status: Active Protocol: Document 06/29/20 13:25 [facility] (Rec: 06/29/20 13:57 [facility] [id number]) Out-Patient Physical Therapy Visit Information Visit Information Visit Type Treatment Note Visit Note 11/14 Visit Start Time 11:45 Visit Stop Time 12:40 Total Visit Minutes 50 Visit Number 3 Number of HAND GLUER AND SLICER Visits 1 PT-OP-B Current Condition Start: 06/21/20 08:02 Freq: Status: Active Protocol: Document 06/21/20 08:15 [facility] (Rec: 06/21/20 10:20 [facility] [id number]) Current Condition History of Current Condition Onset Date mid Apr Current Complaints med R knee, LBP History of Current Condition Pt reports knee and back pain started aroundthe same timea nd they appear around the same time. Pt reports he was doing a lot of painting and climbing and moving ladders and also does knee ext & flex machines. He does those exercises often though feels like ladder was more likely culpret. Sometimes when stretching and doing exercises he feels the pain a little bit. Pt tries to do windshield wiper exercise but that is painful to LB. Pt had a fall in '98 and fell and hit in LB and conclusion was osteoporosis. Pt reprots the odd thing is when he has clicking in LB when he walks ( can walk2-3 miles) that he feels on L side with RLE movement. Sometimes it is every RLE step sometimes more intermittent. Pt reprots feels like it is ligaments popping over bone. Pt bikes and hikes and can bike 20 miles without knee pain. Knee used ot bother him when driving Prior Treatments and Tests Chiropractor but min relief - Xrays done and chiropractor doesn't think it is nerve pain Treatment Goals Patient/Caregiver Goals Stay active and determine whats cuasing pain and clicking, dec pain Personal Factors Other Personal Factors That May Effect Non-Hodgkin's Lymphoma, Therapy/Recovery history of LBP, gallbladder removal PT-OP-C Subjective Start: 06/21/20 08:02 Freq: Status: Active Protocol: Document 06/29/20 13:25 [facility] (Rec: 06/29/20 13:57 MA [id number]) OP-PT Subjective Patient Comments Patient Comments Pt reports he has clicking still in mid back and some right medial knee pain. Pt worried his knee pain is related to nerves in his back. PT-OP-D Balance Start: 06/21/20 08:02 Freq: Status: Active Protocol: Document 06/21/20 08:15 [facility] (Rec: 06/21/20 10:20 [facility] [id number]) Balance Tests Single Limb Standing Single Limb- Right 7 sec Single Limb- Left 11 sec PT-OP-F Manual Assessment Start: 06/21/20 08:02 Freq: Status: Active Protocol: Document 06/21/20 08:15 [facility] (Rec: 06/21/20 10:20 [facility] [id number]) Manual Assessments Soft Tissue Assessment Soft Tissue Mobility Assessment med joint line tenderness Joint Mobility Assessment Joint Mobility Assessment L iliac crest slightly higher; equal greater trochanters PT-OP-G Mobility & Gait Start: 06/21/20 08:02 Freq: Status: Active Protocol: Document 06/21/20 08:15 [facility] (Rec: 06/21/20 10:20 [facility] [id number]) OP Gait Assessment Comments Gait Comments dec push off B; dec foot clearance PT-OP-J Posture/Palpation/Skin Start: 06/21/20 08:02 Freq: Status: Active Protocol: Document 06/21/20 08:15 [facility] (Rec: 06/21/20 10:20 [facility] [id number]) Posture Evaluation Kerry Postural Classification System Kerry Postural Classifications Posterior/Anterior Vertebral Compression Test 2 Elbow Flexion Test 2 Lumbar Protective Mechanism Left AP 2 Lumbar Protective Mechanism Right AP 2 Lumbar Protective Mechanism Left PA 2 Lumbar Protective Mechanism Right PA 2 PT-OP-K Range of Motion Start: 06/21/20 08:02 Freq: Status: Active Protocol: Document 06/21/20 08:15 [facility] (Rec: 06/21/20 10:20 [facility] [id number]) Lumbar Spine Range of Motion Lumbar Spine Active Degrees Flexion 60 Extension 22 Rotation Left 64 Rotation Right 63 Lateral Flexion Left 18 Lateral Flexion Right 19 Comments L discomfort w/R SB Knee Goniometric Range of Motion Knee Right Flexion Active (degrees) 133 Extension Active (degrees) 4 Comments pain w/ext Left Flexion Active (degrees) 137 Extension Active (degrees) 2 PT-OP-L Special Tests Start: 06/21/20 08:02 Freq: Status: Active Protocol: Document 06/21/20 08:15 [facility] (Rec: 06/21/20 10:20 [facility] [id number]) Special Tests Knee Special Tests Straight Leg Raise Test Results mod HS tightness on L with min on R PT-OP-M Strength Start: 06/21/20 08:02 Freq: Status: Active Protocol: Document 06/21/20 08:15 [facility] (Rec: 06/21/20 10:20 [facility] [id number]) Hip Strength Hip Manual Muscle Testing Right Flexion (L2) 4 Good Extension (S1) 4 Good Abduction 4+ Good+ Adduction 5 Normal External Rotation 4 Good Internal Rotation 4 Good Left Flexion (L2) 4 Good Extension (S1) 4- Good- Abduction 5 Normal Adduction 5 Normal External Rotation 4 Good Internal Rotation 4 Good Comments pain LB with ext Knee Strength Knee Manual Muscle Testing Right Flexion (S2) 4+ Good+ Extension (L3) 5 Normal Left Flexion (S2) 5 Normal Extension (L3) 5 Normal Ankle/Foot Strength Ankle and Foot Manual Muscle Testing Right Dorsiflexion (L4) 5 Normal Plantarflexion (S1) 5 Normal Left Dorsiflexion (L4) 5 Normal Plantarflexion (S1) 5 Normal PT-OP-Q Treatments Start: 06/21/20 08:02 Freq: Status: Active Protocol: Document 06/29/20 13:25 [facility] (Rec: 06/29/20 13:57 MA [id number]) Therapeutic Exercises Supine Exercises LTR Side bilateral Reps/Minutes 10x Comments greater stretch felt left Piriformis Stretch Side bilateral Reps/Minutes 2x30 seconds Comments greater stretch on right stretch Supine Exercise Name HS Side bilateral Equipment Used Belt Reps/Minutes 30 sec bridge Side bilateral Reps/Minutes 10 Sidelying Exercises Open Book Side bilateral Reps/Minutes 1x5 Comments pt feels stretch more on left side Sitting Exercises HS Sitting Exercise Name Long sitting Reps/Minutes 60 sec Comments cues to push back of knees into mat Butterfly Stretch Side bilateral Reps/Minutes 2x60 sec Comments cues to keep back straight and gently push down on inner thighs Standing Exercises QL stretch Side bilateral Equipment Used doorway Reps/Minutes 2x30 sec Comments pt feels increased stretch on L side Self-Care/Home Management Treatment Education Other Education Educated patient on difference between mm and nerve pains and how tight mms can cause pain in affected areas. PT-OP-T Assessment and Plan Start: 06/21/20 08:02 Freq: Status: Active Protocol: Document 06/29/20 13:25 [facility] (Rec: 06/29/20 13:57 MA [id number]) Physical Therapy Assessment Goals posture Short Term Goal (STG) Pt will demonstrate improved posture as shown by 4/5 on VCT to dec strain on back. STG Duration 07/22/20 Mud Jack Nozzleman Goal (LTG) Pt will demonstrate good lifting mecahnics in order to dec strain on backa nd knee. LTG Duration 08/21/20 activities Mcc Goal (LTG) Pt will be able to do all typical activities (walking, squatting, housework) without LBP or knee pain. LTG Duration 08/21/20 strength Short Term Goal (STG) Pt will be indep with appropriate stretching and strengthening program STG Duration 07/22/20 Mcc Goal (LTG) Pt will have 5/5 LE strength Assessment Summary Assessment Pt was tighter through L paraspinals and R HS during stretches. HAND GLUER AND SLICER re-educated pt on difference between nerve pains and mm pains to ease pts worry during session. Added new HEP exercises. Physical Therapy Plan Frequency and Duration Frequency of Treatment 1-2x/weeks Duration of Treatment 2 months Plan of Care Start Date 06/21/20 Plan of Care End Date 08/21/20 Next Visit Focus/Plan Next Note Type Treatment Note Next Visit Plan Ask pt if stretches decreased clicking in back. Review new HEP additions. Continue manual for soft tissue and joint mobility. Discuss seated posture.
--- NOTE | 2020-07-04 11:40 | PT.OTN ---
Current Diagnoses Pain in right knee (07/04/20) Low back pain (07/04/20) Abnormal posture (07/04/20) Weakness (07/04/20) Physical Therapy Treatment Note PT-OP-A Visit Information Start: 06/21/20 08:02 Freq: Status: Active Protocol: Document 07/04/20 11:27 [facility] (Rec: 07/04/20 11:40 [facility] [id number]) Out-Patient Physical Therapy Visit Information Visit Information Visit Type Treatment Note Visit Note 12/15 Visit Start Time 09:50 Visit Stop Time 10:31 Total Visit Minutes 41 Visit Number 4 Number of DETAIL ASSEMBLER Visits 0 PT-OP-B Current Condition Start: 06/21/20 08:02 Freq: Status: Active Protocol: Document 06/21/20 08:15 [facility] (Rec: 06/21/20 10:20 [facility] [id number]) Current Condition History of Current Condition Onset Date mid Apr Current Complaints med R knee, LBP History of Current Condition Pt reports knee and back pain started aroundthe same timea nd they appear around the same time. Pt reports he was doing a lot of painting and climbing and moving ladders and also does knee ext & flex machines. He does those exercises often though feels like ladder was more likely culpret. Sometimes when stretching and doing exercises he feels the pain a little bit. Pt tries to do windshield wiper exercise but that is painful to LB. Pt had a fall in '98 and fell and hit in LB and conclusion was osteoporosis. Pt reprots the odd thing is when he has clicking in LB when he walks ( can walk2-3 miles) that he feels on L side with RLE movement. Sometimes it is every RLE step sometimes more intermittent. Pt reprots feels like it is ligaments popping over bone. Pt bikes and hikes and can bike 20 miles without knee pain. Knee used ot bother him when driving Prior Treatments and Tests Chiropractor but min relief - Xrays done and chiropractor doesn't think it is nerve pain Treatment Goals Patient/Caregiver Goals Stay active and determine whats cuasing pain and clicking, dec pain Personal Factors Other Personal Factors That May Effect Non-Hodgkin's Lymphoma, Therapy/Recovery history of LBP, gallbladder removal PT-OP-C Subjective Start: 06/21/20 08:02 Freq: Status: Active Protocol: Document 07/04/20 11:27 [facility] (Rec: 07/04/20 11:40 [facility] [id number]) OP-PT Subjective Patient Comments Patient Comments Pt reprots open book stretch casues some pain but better today. PT-OP-D Balance Start: 06/21/20 08:02 Freq: Status: Active Protocol: Document 06/21/20 08:15 [facility] (Rec: 06/21/20 10:20 [facility] [id number]) Balance Tests Single Limb Standing Single Limb- Right 7 sec Single Limb- Left 11 sec PT-OP-F Manual Assessment Start: 06/21/20 08:02 Freq: Status: Active Protocol: Document 06/21/20 08:15 [facility] (Rec: 06/21/20 10:20 [facility] [id number]) Manual Assessments Soft Tissue Assessment Soft Tissue Mobility Assessment med joint line tenderness Joint Mobility Assessment Joint Mobility Assessment L iliac crest slightly higher; equal greater trochanters PT-OP-G Mobility & Gait Start: 06/21/20 08:02 Freq: Status: Active Protocol: Document 06/21/20 08:15 [facility] (Rec: 06/21/20 10:20 [facility] [id number]) OP Gait Assessment Comments Gait Comments dec push off B; dec foot clearance PT-OP-J Posture/Palpation/Skin Start: 06/21/20 08:02 Freq: Status: Active Protocol: Document 06/21/20 08:15 [facility] (Rec: 06/21/20 10:20 [facility] [id number]) Posture Evaluation Kerry Postural Classification System Kerry Postural Classifications Posterior/Anterior Vertebral Compression Test 2 Elbow Flexion Test 2 Lumbar Protective Mechanism Left AP 2 Lumbar Protective Mechanism Right AP 2 Lumbar Protective Mechanism Left PA 2 Lumbar Protective Mechanism Right PA 2 PT-OP-K Range of Motion Start: 06/21/20 08:02 Freq: Status: Active Protocol: Document 06/21/20 08:15 [facility] (Rec: 06/21/20 10:20 [facility] [id number]) Lumbar Spine Range of Motion Lumbar Spine Active Degrees Flexion 60 Extension 22 Rotation Left 64 Rotation Right 63 Lateral Flexion Left 18 Lateral Flexion Right 19 Comments L discomfort w/R SB Knee Goniometric Range of Motion Knee Right Flexion Active (degrees) 133 Extension Active (degrees) 4 Comments pain w/ext Left Flexion Active (degrees) 137 Extension Active (degrees) 2 PT-OP-L Special Tests Start: 06/21/20 08:02 Freq: Status: Active Protocol: Document 06/21/20 08:15 [facility] (Rec: 06/21/20 10:20 [facility] [id number]) Special Tests Knee Special Tests Straight Leg Raise Test Results mod HS tightness on L with min on R PT-OP-M Strength Start: 06/21/20 08:02 Freq: Status: Active Protocol: Document 06/21/20 08:15 [facility] (Rec: 06/21/20 10:20 [facility] [id number]) Hip Strength Hip Manual Muscle Testing Right Flexion (L2) 4 Good Extension (S1) 4 Good Abduction 4+ Good+ Adduction 5 Normal External Rotation 4 Good Internal Rotation 4 Good Left Flexion (L2) 4 Good Extension (S1) 4- Good- Abduction 5 Normal Adduction 5 Normal External Rotation 4 Good Internal Rotation 4 Good Comments pain LB with ext Knee Strength Knee Manual Muscle Testing Right Flexion (S2) 4+ Good+ Extension (L3) 5 Normal Left Flexion (S2) 5 Normal Extension (L3) 5 Normal Ankle/Foot Strength Ankle and Foot Manual Muscle Testing Right Dorsiflexion (L4) 5 Normal Plantarflexion (S1) 5 Normal Left Dorsiflexion (L4) 5 Normal Plantarflexion (S1) 5 Normal PT-OP-Q Treatments Start: 06/21/20 08:02 Freq: Status: Active Protocol: Document 07/04/20 11:27 [facility] (Rec: 07/04/20 11:40 [facility] [id number]) Therapeutic Exercises Supine Exercises LTR Supine Exercise Name focus on segmental push down for core activiation Side bilateral Reps/Minutes 6 Comments greater stretch felt left Sidelying Exercises Open Book Side bilateral Reps/Minutes 15 Comments pt feels stretch more on left side Sitting Exercises Butterfly Stretch Sitting Exercise Name figure 4 Side bilateral Reps/Minutes 60 sec B Comments cues to keep back straight and gently push down on inner thighs Standing Exercises QL stretch Standing Exercise Name standing then seated as pt did not like feeling of standing Side bilateral Equipment Used doorway Reps/Minutes 30 sec ea wall posture Standing Exercise Name w/modified pivot prone UE Side bilateral Reps/Minutes 1 min hold w/arms into ext Manual Therapy Treatment Soft Tissue Mobilization QL Body Location L QL, ES, along iliac crest sup & colon Mobilization Type Rolling,Sustained Pressure Intensity/Depth Moderate Comments w/roll & reach Joint Mobilizations lumbar spine Joint L3-5 Direction transverse R FM w/roll & reach Grade II PT-OP-T Assessment and Plan Start: 06/21/20 08:02 Freq: Status: Active Protocol: Document 07/04/20 11:27 [facility] (Rec: 07/04/20 11:40 [facility] [id number]) Physical Therapy Assessment Goals posture Short Term Goal (STG) Pt will demonstrate improved posture as shown by 4/5 on VCT to dec strain on back. STG Duration 07/22/20 [facility] Goal (LTG) Pt will demonstrate good lifting mecahnics in order to dec strain on backa nd knee. LTG Duration 08/21/20 activities [facility] Goal (LTG) Pt will be able to do all typical activities (walking, squatting, housework) without LBP or knee pain. LTG Duration 08/21/20 strength Short Term Goal (STG) Pt will be indep with appropriate stretching and strengthening program STG Duration 07/22/20 [facility] Goal (LTG) Pt will have 5/5 LE strength Assessment Summary Assessment Improved open book with L rotation after manual treatment. Improved performance of exercsies without cueing needed after reps & initial cueing. Pt showed better understanding Physical Therapy Plan Next Visit Focus/Plan Next Note Type Treatment Note Next Visit Plan Review HEP if needed, manual for mobility & soft tissue mobility, work on core progression w/focus on TA activation (pt likes to do double leg lift and is unable to maintain lumbar neutral)
--- NOTE | 2020-07-06 10:46 | PT.OTN ---
Current Diagnoses Pain in right knee (07/06/20) Low back pain (07/06/20) Abnormal posture (07/06/20) Weakness (07/06/20) Physical Therapy Treatment Note PT-OP-A Visit Information Start: 06/21/20 08:02 Freq: Status: Active Protocol: Document 07/06/20 10:29 [facility] (Rec: 07/06/20 10:46 [facility] [id number]) Out-Patient Physical Therapy Visit Information Visit Information Visit Type Treatment Note Visit Note 01/14 Visit Start Time 09:30 Visit Stop Time 10:20 Total Visit Minutes 50 Visit Number 5 Number of INCISING MACHINE OPERATOR Visits 1 PT-OP-B Current Condition Start: 06/21/20 08:02 Freq: Status: Active Protocol: Document 06/21/20 08:15 [facility] (Rec: 06/21/20 10:20 [facility] [id number]) Current Condition History of Current Condition Onset Date mid Apr Current Complaints med R knee, LBP History of Current Condition Pt reports knee and back pain started aroundthe same timea nd they appear around the same time. Pt reports he was doing a lot of painting and climbing and moving ladders and also does knee ext & flex machines. He does those exercises often though feels like ladder was more likely culpret. Sometimes when stretching and doing exercises he feels the pain a little bit. Pt tries to do windshield wiper exercise but that is painful to LB. Pt had a fall in '98 and fell and hit in [place] and conclusion was osteoporosis. Pt reprots the odd thing is when he has clicking in LB when he walks ( can walk2-3 miles) that he feels on L side with RLE movement. Sometimes it is every RLE step sometimes more intermittent. Pt reprots feels like it is ligaments popping over bone. Pt bikes and hikes and can bike 20 miles without knee pain. Knee used ot bother him when driving Prior Treatments and Tests Chiropractor but min relief - Xrays done and chiropractor doesn't think it is nerve pain Treatment Goals Patient/Caregiver Goals Stay active and determine whats cuasing pain and clicking, dec pain Personal Factors Other Personal Factors That May Effect Non-Hodgkin's Lymphoma, Therapy/Recovery history of LBP, gallbladder removal PT-OP-C Subjective Start: 06/21/20 08:02 Freq: Status: Active Protocol: Document 07/06/20 10:29 [facility] (Rec: 07/06/20 10:46 [facility] [id number]) OP-PT Subjective Patient Comments Patient Comments Pt reports his knee has been feeling better but his back bothers him when he sits up in the mornings PT-OP-D Balance Start: 06/21/20 08:02 Freq: Status: Active Protocol: Document 06/21/20 08:15 [facility] (Rec: 06/21/20 10:20 [facility] [id number]) Balance Tests Single Limb Standing Single Limb- Right 7 sec Single Limb- Left 11 sec PT-OP-F Manual Assessment Start: 06/21/20 08:02 Freq: Status: Active Protocol: Document 06/21/20 08:15 [facility] (Rec: 06/21/20 10:20 [facility] [id number]) Manual Assessments Soft Tissue Assessment Soft Tissue Mobility Assessment med joint line tenderness Joint Mobility Assessment Joint Mobility Assessment L iliac crest slightly higher; equal greater trochanters PT-OP-G Mobility & Gait Start: 06/21/20 08:02 Freq: Status: Active Protocol: Document 06/21/20 08:15 [facility] (Rec: 06/21/20 10:20 [facility] [id number]) OP Gait Assessment Comments Gait Comments dec push off B; dec foot clearance PT-OP-J Posture/Palpation/Skin Start: 06/21/20 08:02 Freq: Status: Active Protocol: Document 06/21/20 08:15 [facility] (Rec: 06/21/20 10:20 [facility] [id number]) Posture Evaluation Kerry Postural Classification System Kerry Postural Classifications Posterior/Anterior Vertebral Compression Test 2 Elbow Flexion Test 2 Lumbar Protective Mechanism Left AP 2 Lumbar Protective Mechanism Right AP 2 Lumbar Protective Mechanism Left PA 2 Lumbar Protective Mechanism Right PA 2 PT-OP-K Range of Motion Start: 06/21/20 08:02 Freq: Status: Active Protocol: Document 06/21/20 08:15 [facility] (Rec: 06/21/20 10:20 [facility] [id number]) Lumbar Spine Range of Motion Lumbar Spine Active Degrees Flexion 60 Extension 22 Rotation Left 64 Rotation Right 63 Lateral Flexion Left 18 Lateral Flexion Right 19 Comments L discomfort w/R SB Knee Goniometric Range of Motion Knee Right Flexion Active (degrees) 133 Extension Active (degrees) 4 Comments pain w/ext Left Flexion Active (degrees) 137 Extension Active (degrees) 2 PT-OP-L Special Tests Start: 06/21/20 08:02 Freq: Status: Active Protocol: Document 06/21/20 08:15 [facility] (Rec: 06/21/20 10:20 [facility] [id number]) Special Tests Knee Special Tests Straight Leg Raise Test Results mod HS tightness on L with min on R PT-OP-M Strength Start: 06/21/20 08:02 Freq: Status: Active Protocol: Document 06/21/20 08:15 [facility] (Rec: 06/21/20 10:20 [facility] [id number]) Hip Strength Hip Manual Muscle Testing Right Flexion (L2) 4 Good Extension (S1) 4 Good Abduction 4+ Good+ Adduction 5 Normal External Rotation 4 Good Internal Rotation 4 Good Left Flexion (L2) 4 Good Extension (S1) 4- Good- Abduction 5 Normal Adduction 5 Normal External Rotation 4 Good Internal Rotation 4 Good Comments pain LB with ext Knee Strength Knee Manual Muscle Testing Right Flexion (S2) 4+ Good+ Extension (L3) 5 Normal Left Flexion (S2) 5 Normal Extension (L3) 5 Normal Ankle/Foot Strength Ankle and Foot Manual Muscle Testing Right Dorsiflexion (L4) 5 Normal Plantarflexion (S1) 5 Normal Left Dorsiflexion (L4) 5 Normal Plantarflexion (S1) 5 Normal PT-OP-Q Treatments Start: 06/21/20 08:02 Freq: Status: Active Protocol: Document 07/06/20 10:29 [facility] (Rec: 07/06/20 10:46 [facility] [email or web address]) Therapeutic Exercises Supine Exercises SLR Supine Exercise Name Straight Leg Raise Side bilateral Reps/Minutes 2x6 Comments Cues for TA activation Sitting Exercises HS Sitting Exercise Name Long sitting Reps/Minutes 60 sec Comments adding sustained pressure along distal ITB Manual Therapy Treatment Soft Tissue Mobilization HS Mobilization Type Myofascial Release Intensity/Depth Moderate Body Position Supine Comments Pt's leg on therapists shd for mild stretch during STM ITB Body Location Distal ITB Mobilization Type Cross-Friction,Sustained Pressure,Trigger Point Release Intensity/Depth Moderate Body Position Supine Comments Pt passively stretching with belt while therapist performed STM Self-Care/Home Management Treatment Education Other Education Educated pt on importance of TA activation during exercises to avoid LBP. Continued to stress that discomfort in R knee is not caused by a nerve in his back. Taught self STM of distal ITB. Reviewed how to properly sit up in bed to avoid LBP PT-OP-T Assessment and Plan Start: 06/21/20 08:02 Freq: Status: Active Protocol: Document 07/06/20 10:29 [facility] (Rec: 07/06/20 10:46 [facility] [id number]) Physical Therapy Assessment Goals posture Short Term Goal (STG) Pt will demonstrate improved posture as shown by 4/5 on VCT to dec strain on back. STG Duration 07/22/20 Central Sterilization Technician Goal (LTG) Pt will demonstrate good lifting mecahnics in order to dec strain on backa nd knee. LTG Duration 08/21/20 activities [facility] Goal (LTG) Pt will be able to do all typical activities (walking, squatting, housework) without LBP or knee pain. LTG Duration 08/21/20 strength Short Term Goal (STG) Pt will be indep with appropriate stretching and strengthening program STG Duration 07/22/20 Central Sterilization Technician Goal (LTG) Pt will have 5/5 LE strength Assessment Summary Assessment After instructions for proper TA activation during SLR, pt had decreased back pain. Instructed pt to hold off on doing double leg raise due to improper form and increaed back pain. Pt was tender to palpation during stretching along distal ITB. After STM, pt had decreased pain. Taught pt to long sit and add sustained pressure or gentle kneeding into sore spots along lateral knee Physical Therapy Plan Frequency and Duration Frequency of Treatment 1-2x/weeks Duration of Treatment 2 months Plan of Care Start Date 06/21/20 Plan of Care End Date 08/21/20 Next Visit Focus/Plan Next Note Type Treatment Note Next Visit Plan Review SLR exercise for TA activation and see how stretching with added sustained pressure over trigger points worked for decreasing knee pain. Continue working on HEP exercises and core work with emphasis on TA activation
--- NOTE | 2020-07-17 10:35 | PT.OTN ---
Current Diagnoses Pain in right knee (07/17/20) Low back pain (07/17/20) Abnormal posture (07/17/20) Weakness (07/17/20) Physical Therapy Treatment Note PT-OP-A Visit Information Start: 06/21/20 08:02 Freq: Status: Active Protocol: Document 07/17/20 09:46 [facility] (Rec: 07/17/20 10:35 [facility] [id number]) Out-Patient Physical Therapy Visit Information Visit Information Visit Type Treatment Note Visit Note 02/14 Visit Start Time 09:47 Visit Stop Time 10:30 Total Visit Minutes 43 Visit Number 6 Number of GRAINING PRESS OPERATOR Visits 0 PT-OP-B Current Condition Start: 06/21/20 08:02 Freq: Status: Active Protocol: Document 06/21/20 08:15 [facility] (Rec: 06/21/20 10:20 [facility] [id number]) Current Condition History of Current Condition Onset Date mid Apr Current Complaints med R knee, LBP History of Current Condition Pt reports knee and back pain started aroundthe same timea nd they appear around the same time. Pt reports he was doing a lot of painting and climbing and moving ladders and also does knee ext & flex machines. He does those exercises often though feels like ladder was more likely culpret. Sometimes when stretching and doing exercises he feels the pain a little bit. Pt tries to do windshield wiper exercise but that is painful to LB. Pt had a fall in '98 and fell and hit in LB and conclusion was osteoporosis. Pt reprots the odd thing is when he has clicking in LB when he walks ( can walk2-3 miles) that he feels on L side with RLE movement. Sometimes it is every RLE step sometimes more intermittent. Pt reprots feels like it is ligaments popping over bone. Pt bikes and hikes and can bike 20 miles without knee pain. Knee used ot bother him when driving Prior Treatments and Tests Chiropractor but min relief - Xrays done and chiropractor doesn't think it is nerve pain Treatment Goals Patient/Caregiver Goals Stay active and determine whats cuasing pain and clicking, dec pain Personal Factors Other Personal Factors That May Effect Non-Hodgkin's Lymphoma, Therapy/Recovery history of LBP, gallbladder removal PT-OP-C Subjective Start: 06/21/20 08:02 Freq: Status: Active Protocol: Document 07/17/20 09:46 [facility] (Rec: 07/17/20 10:35 [facility] [id number]) OP-PT Subjective Patient Comments Patient Comments Pt reprots less pain recently. A ble to to feel okay after drive. Less pain that before Patient Reported Progress Improving PT-OP-D Balance Start: 06/21/20 08:02 Freq: Status: Active Protocol: Document 06/21/20 08:15 [facility] (Rec: 06/21/20 10:20 [facility] [id number]) Balance Tests Single Limb Standing Single Limb- Right 7 sec Single Limb- Left 11 sec PT-OP-F Manual Assessment Start: 06/21/20 08:02 Freq: Status: Active Protocol: Document 06/21/20 08:15 [facility] (Rec: 06/21/20 10:20 [facility] [id number]) Manual Assessments Soft Tissue Assessment Soft Tissue Mobility Assessment med joint line tenderness Joint Mobility Assessment Joint Mobility Assessment L iliac crest slightly higher; equal greater trochanters PT-OP-G Mobility & Gait Start: 06/21/20 08:02 Freq: Status: Active Protocol: Document 06/21/20 08:15 [facility] (Rec: 06/21/20 10:20 [facility] [id number]) OP Gait Assessment Comments Gait Comments dec push off B; dec foot clearance PT-OP-J Posture/Palpation/Skin Start: 06/21/20 08:02 Freq: Status: Active Protocol: Document 06/21/20 08:15 [facility] (Rec: 06/21/20 10:20 [facility] [id number]) Posture Evaluation Kerry Postural Classification System Kerry Postural Classifications Posterior/Anterior Vertebral Compression Test 2 Elbow Flexion Test 2 Lumbar Protective Mechanism Left AP 2 Lumbar Protective Mechanism Right AP 2 Lumbar Protective Mechanism Left PA 2 Lumbar Protective Mechanism Right PA 2 PT-OP-K Range of Motion Start: 06/21/20 08:02 Freq: Status: Active Protocol: Document 06/21/20 08:15 [facility] (Rec: 06/21/20 10:20 [facility] [id number]) Lumbar Spine Range of Motion Lumbar Spine Active Degrees Flexion 60 Extension 22 Rotation Left 64 Rotation Right 63 Lateral Flexion Left 18 Lateral Flexion Right 19 Comments L discomfort w/R SB Knee Goniometric Range of Motion Knee Right Flexion Active (degrees) 133 Extension Active (degrees) 4 Comments pain w/ext Left Flexion Active (degrees) 137 Extension Active (degrees) 2 PT-OP-L Special Tests Start: 06/21/20 08:02 Freq: Status: Active Protocol: Document 06/21/20 08:15 [facility] (Rec: 06/21/20 10:20 [facility] [id number]) Special Tests Knee Special Tests Straight Leg Raise Test Results mod HS tightness on L with min on R PT-OP-M Strength Start: 06/21/20 08:02 Freq: Status: Active Protocol: Document 06/21/20 08:15 [facility] (Rec: 06/21/20 10:20 [facility] [id number]) Hip Strength Hip Manual Muscle Testing Right Flexion (L2) 4 Good Extension (S1) 4 Good Abduction 4+ Good+ Adduction 5 Normal External Rotation 4 Good Internal Rotation 4 Good Left Flexion (L2) 4 Good Extension (S1) 4- Good- Abduction 5 Normal Adduction 5 Normal External Rotation 4 Good Internal Rotation 4 Good Comments pain LB with ext Knee Strength Knee Manual Muscle Testing Right Flexion (S2) 4+ Good+ Extension (L3) 5 Normal Left Flexion (S2) 5 Normal Extension (L3) 5 Normal Ankle/Foot Strength Ankle and Foot Manual Muscle Testing Right Dorsiflexion (L4) 5 Normal Plantarflexion (S1) 5 Normal Left Dorsiflexion (L4) 5 Normal Plantarflexion (S1) 5 Normal PT-OP-Q Treatments Start: 06/21/20 08:02 Freq: Status: Active Protocol: Document 07/17/20 09:46 [facility] (Rec: 07/17/20 10:35 [facility] [id number]) Cardio Equipment Recumbent Bicycle Duration (Minutes) 5 Resistance 11 Seat Position 7 Therapeutic Exercises Supine Exercises TA Supine Exercise Name /november Side bilateral Reps/Minutes 10 flex Supine Exercise Name isometric single leg flex & diagonal Side bilateral Reps/Minutes 30 sec each SLR Supine Exercise Name Straight Leg Raise Side bilateral Reps/Minutes 12 Comments Cues for TA activation LTR Supine Exercise Name focus on segmental push down for core activiation Side bilateral Reps/Minutes 8 Comments greater stretch felt left Manual Therapy Treatment Joint Mobilizations innominate Joint B Direction flex FM hip Joint B Direction inf glide FM Self-Care/Home Management Treatment Education Other Education edu re: importance of core neutral & TA, edu on hip motion, cont ro review unlikely nerve impingement causing R knee pain PT-OP-T Assessment and Plan Start: 06/21/20 08:02 Freq: Status: Active Protocol: Document 07/17/20 09:46 [facility] (Rec: 07/17/20 10:35 [facility] [id number]) Physical Therapy Assessment Goals posture Short Term Goal (STG) Pt will demonstrate improved posture as shown by 4/5 on VCT to dec strain on back. STG Duration 07/22/20 Computerized Mill Recorder Goal (LTG) Pt will demonstrate good lifting mecahnics in order to dec strain on backa nd knee. LTG Duration 08/21/20 activities Computerized Mill Recorder Goal (LTG) Pt will be able to do all typical activities (walking, squatting, housework) without LBP or knee pain. LTG Duration 08/21/20 strength Short Term Goal (STG) Pt will be indep with appropriate stretching and strengthening program STG Duration 07/22/20 Computerized Mill Recorder Goal (LTG) Pt will have 5/5 LE strength Assessment Summary Assessment Pt had improved hip flex without pain after manual treatment whereas prior pt had L thigh pain with full flex and back pain w/R hip flex. He improved with performance of core exercises after cueing. Physical Therapy Plan Frequency and Duration Frequency of Treatment 1-2x/weeks Duration of Treatment 2 months Plan of Care Start Date 06/21/20 Plan of Care End Date 08/21/20 Next Visit Focus/Plan Next Note Type Treatment Note Next Visit Plan Continue working on HEP exercises and core work with emphasis on TA activation
--- NOTE | 2020-07-19 14:32 | PT.OTN ---
Current Diagnoses Pain in right knee (07/19/20) Low back pain (07/19/20) Abnormal posture (07/19/20) Weakness (07/19/20) Physical Therapy Treatment Note PT-OP-A Visit Information Start: 06/21/20 08:02 Freq: Status: Active Protocol: Document 07/19/20 13:48 [facility] (Rec: 07/19/20 14:32 [facility] [id number]) Out-Patient Physical Therapy Visit Information Visit Information Visit Type Treatment Note Visit Note 03/16 Visit Start Time 13:48 Visit Stop Time 14:28 Total Visit Minutes 40 Visit Number 7 Number of DERRICK HELPER Visits 0 PT-OP-B Current Condition Start: 06/21/20 08:02 Freq: Status: Active Protocol: Document 06/21/20 08:15 [facility] (Rec: 06/21/20 10:20 [facility] [id number]) Current Condition History of Current Condition Onset Date mid Apr Current Complaints med R knee, LBP History of Current Condition Pt reports knee and back pain started aroundthe same timea nd they appear around the same time. Pt reports he was doing a lot of painting and climbing and moving ladders and also does knee ext & flex machines. He does those exercises often though feels like ladder was more likely culpret. Sometimes when stretching and doing exercises he feels the pain a little bit. Pt tries to do windshield wiper exercise but that is painful to LB. Pt had a fall in '98 and fell and hit in [place] and conclusion was osteoporosis. Pt reprots the odd thing is when he has clicking in LB when he walks ( can walk2-3 miles) that he feels on L side with RLE movement. Sometimes it is every RLE step sometimes more intermittent. Pt reprots feels like it is ligaments popping over bone. Pt bikes and hikes and can bike 20 miles without knee pain. Knee used ot bother him when driving Prior Treatments and Tests Chiropractor but min relief - Xrays done and chiropractor doesn't think it is nerve pain Treatment Goals Patient/Caregiver Goals Stay active and determine whats cuasing pain and clicking, dec pain Personal Factors Other Personal Factors That May Effect Non-Hodgkin's Lymphoma, Therapy/Recovery history of LBP, gallbladder removal PT-OP-C Subjective Start: 06/21/20 08:02 Freq: Status: Active Protocol: Document 07/19/20 13:48 [facility] (Rec: 07/19/20 14:32 [facility] [id number]) OP-PT Subjective Patient Comments Patient Comments Pt reprots he saw re: xray and saw arthritis but nothing more. Pt reports MD unconcerned about click PT-OP-D Balance Start: 06/21/20 08:02 Freq: Status: Active Protocol: Document 06/21/20 08:15 [facility] (Rec: 06/21/20 10:20 [facility] [id number]) Balance Tests Single Limb Standing Single Limb- Right 7 sec Single Limb- Left 11 sec PT-OP-F Manual Assessment Start: 06/21/20 08:02 Freq: Status: Active Protocol: Document 06/21/20 08:15 [facility] (Rec: 06/21/20 10:20 [facility] [id number]) Manual Assessments Soft Tissue Assessment Soft Tissue Mobility Assessment med joint line tenderness Joint Mobility Assessment Joint Mobility Assessment L iliac crest slightly higher; equal greater trochanters PT-OP-G Mobility & Gait Start: 06/21/20 08:02 Freq: Status: Active Protocol: Document 06/21/20 08:15 [facility] (Rec: 06/21/20 10:20 [facility] [id number]) OP Gait Assessment Comments Gait Comments dec push off B; dec foot clearance PT-OP-J Posture/Palpation/Skin Start: 06/21/20 08:02 Freq: Status: Active Protocol: Document 06/21/20 08:15 [facility] (Rec: 06/21/20 10:20 [facility] [id number]) Posture Evaluation Kerry Postural Classification System Kerry Postural Classifications Posterior/Anterior Vertebral Compression Test 2 Elbow Flexion Test 2 Lumbar Protective Mechanism Left AP 2 Lumbar Protective Mechanism Right AP 2 Lumbar Protective Mechanism Left PA 2 Lumbar Protective Mechanism Right PA 2 PT-OP-K Range of Motion Start: 06/21/20 08:02 Freq: Status: Active Protocol: Document 06/21/20 08:15 [facility] (Rec: 06/21/20 10:20 [facility] [id number]) Lumbar Spine Range of Motion Lumbar Spine Active Degrees Flexion 60 Extension 22 Rotation Left 64 Rotation Right 63 Lateral Flexion Left 18 Lateral Flexion Right 19 Comments L discomfort w/R SB Knee Goniometric Range of Motion Knee Right Flexion Active (degrees) 133 Extension Active (degrees) 4 Comments pain w/ext Left Flexion Active (degrees) 137 Extension Active (degrees) 2 PT-OP-L Special Tests Start: 06/21/20 08:02 Freq: Status: Active Protocol: Document 06/21/20 08:15 [facility] (Rec: 06/21/20 10:20 [facility] [id number]) Special Tests Knee Special Tests Straight Leg Raise Test Results mod HS tightness on L with min on R PT-OP-M Strength Start: 06/21/20 08:02 Freq: Status: Active Protocol: Document 06/21/20 08:15 [facility] (Rec: 06/21/20 10:20 [facility] [id number]) Hip Strength Hip Manual Muscle Testing Right Flexion (L2) 4 Good Extension (S1) 4 Good Abduction 4+ Good+ Adduction 5 Normal External Rotation 4 Good Internal Rotation 4 Good Left Flexion (L2) 4 Good Extension (S1) 4- Good- Abduction 5 Normal Adduction 5 Normal External Rotation 4 Good Internal Rotation 4 Good Comments pain LB with ext Knee Strength Knee Manual Muscle Testing Right Flexion (S2) 4+ Good+ Extension (L3) 5 Normal Left Flexion (S2) 5 Normal Extension (L3) 5 Normal Ankle/Foot Strength Ankle and Foot Manual Muscle Testing Right Dorsiflexion (L4) 5 Normal Plantarflexion (S1) 5 Normal Left Dorsiflexion (L4) 5 Normal Plantarflexion (S1) 5 Normal PT-OP-Q Treatments Start: 06/21/20 08:02 Freq: Status: Active Protocol: Document 07/19/20 13:48 [facility] (Rec: 07/19/20 14:32 [facility] [id number]) Cardio Equipment Bicycle (Upright) Duration (Minutes) 9 Resistance 10 Seat Position 6 Therapeutic Exercises Supine Exercises TA Supine Exercise Name w/march Side bilateral Reps/Minutes 12 Comments alt flex Supine Exercise Name isometric single leg flex & diagonal Side bilateral Reps/Minutes 30 sec eachx2 SLR Supine Exercise Name Straight Leg Raise Side bilateral Reps/Minutes 8 Comments Cues for TA activation Manual Therapy Treatment Soft Tissue Mobilization QL Body Location L QL, ES, along iliac crest sup & colon Mobilization Type Rolling,Sustained Pressure Intensity/Depth Moderate Comments w/ant elevation & post PT-OP-T Assessment and Plan Start: 06/21/20 08:02 Freq: Status: Active Protocol: Document 07/19/20 13:48 [facility] (Rec: 07/19/20 14:32 [facility] [id number]) Physical Therapy Assessment Goals posture Short Term Goal (STG) Pt will demonstrate improved posture as shown by 4/5 on VCT to dec strain on back. STG Duration 07/22/20 Senior Care Goal (LTG) Pt will demonstrate good lifting mecahnics in order to dec strain on backa nd knee. LTG Duration 08/21/20 activities Striker Out Goal (LTG) Pt will be able to do all typical activities (walking, squatting, housework) without LBP or knee pain. LTG Duration 08/21/20 strength Short Term Goal (STG) Pt will be indep with appropriate stretching and strengthening program STG Duration 07/22/20 Senior Care Goal (LTG) Pt will have 5/5 LE strength Assessment Summary Assessment After working on core, pt was able to walk about 100ft without clicking in his back and after manual, pt felt only 2 clicks while walking around clinic awaiting exercises. Pt did requrie some cueing for core duirng exercises & with isometric exercise to be more gentle with his pressure of hand. Physical Therapy Plan Frequency and Duration Frequency of Treatment 1-2x/weeks Duration of Treatment 2 months Plan of Care Start Date 06/21/20 Plan of Care End Date 08/21/20 Next Visit Focus/Plan Next Note Type Treatment Note Next Visit Plan Continue working on HEP exercises and core work with emphasis on TA activation
--- NOTE | 2020-07-24 12:09 | PT.OTN ---
Current Diagnoses Pain in right knee (07/24/20) Low back pain (07/24/20) Abnormal posture (07/24/20) Weakness (07/24/20) Physical Therapy Treatment Note PT-OP-A Visit Information Start: 06/21/20 08:02 Freq: Status: Active Protocol: Document 07/24/20 08:16 [facility] (Rec: 07/24/20 12:09 [facility] [id number]) Out-Patient Physical Therapy Visit Information Visit Information Visit Type Treatment Note Visit Note 04/16 Visit Start Time 08:16 Visit Stop Time 09:00 Total Visit Minutes 44 Visit Number 8 Number of CURTAIN MENDER Visits 0 PT-OP-B Current Condition Start: 06/21/20 08:02 Freq: Status: Active Protocol: Document 06/21/20 08:15 [facility] (Rec: 06/21/20 10:20 [facility] [id number]) Current Condition History of Current Condition Onset Date mid Apr Current Complaints med R knee, LBP History of Current Condition Pt reports knee and back pain started aroundthe same timea nd they appear around the same time. Pt reports he was doing a lot of painting and climbing and moving ladders and also does knee ext & flex machines. He does those exercises often though feels like ladder was more likely culpret. Sometimes when stretching and doing exercises he feels the pain a little bit. Pt tries to do windshield wiper exercise but that is painful to LB. Pt had a fall in '98 and fell and hit in LB and conclusion was osteoporosis. Pt reprots the odd thing is when he has clicking in LB when he walks ( can walk2-3 miles) that he feels on L side with RLE movement. Sometimes it is every RLE step sometimes more intermittent. Pt reprots feels like it is ligaments popping over bone. Pt bikes and hikes and can bike 20 miles without knee pain. Knee used ot bother him when driving Prior Treatments and Tests Chiropractor but min relief - Xrays done and chiropractor doesn't think it is nerve pain Treatment Goals Patient/Caregiver Goals Stay active and determine whats cuasing pain and clicking, dec pain Personal Factors Other Personal Factors That May Effect Non-Hodgkin's Lymphoma, Therapy/Recovery history of LBP, gallbladder removal PT-OP-C Subjective Start: 06/21/20 08:02 Freq: Status: Active Protocol: Document 07/24/20 08:16 [facility] (Rec: 07/24/20 12:09 [facility] [id number]) OP-PT Subjective Patient Comments Patient Comments Pt reports occ knee pain only when up/down stairs but not always. Pt reprots he has stiffness and creeky in the AM in back. Patient Reported Progress Improving PT-OP-D Balance Start: 06/21/20 08:02 Freq: Status: Active Protocol: Document 06/21/20 08:15 [facility] (Rec: 06/21/20 10:20 [facility] [id number]) Balance Tests Single Limb Standing Single Limb- Right 7 sec Single Limb- Left 11 sec PT-OP-F Manual Assessment Start: 06/21/20 08:02 Freq: Status: Active Protocol: Document 06/21/20 08:15 [facility] (Rec: 06/21/20 10:20 [facility] [id number]) Manual Assessments Soft Tissue Assessment Soft Tissue Mobility Assessment med joint line tenderness Joint Mobility Assessment Joint Mobility Assessment L iliac crest slightly higher; equal greater trochanters PT-OP-G Mobility & Gait Start: 06/21/20 08:02 Freq: Status: Active Protocol: Document 06/21/20 08:15 [facility] (Rec: 06/21/20 10:20 [facility] [id number]) OP Gait Assessment Comments Gait Comments dec push off B; dec foot clearance PT-OP-J Posture/Palpation/Skin Start: 06/21/20 08:02 Freq: Status: Active Protocol: Document 06/21/20 08:15 [facility] (Rec: 06/21/20 10:20 [facility] [id number]) Posture Evaluation Kerry Postural Classification System Kerry Postural Classifications Posterior/Anterior Vertebral Compression Test 2 Elbow Flexion Test 2 Lumbar Protective Mechanism Left AP 2 Lumbar Protective Mechanism Right AP 2 Lumbar Protective Mechanism Left PA 2 Lumbar Protective Mechanism Right PA 2 PT-OP-K Range of Motion Start: 06/21/20 08:02 Freq: Status: Active Protocol: Document 06/21/20 08:15 [facility] (Rec: 06/21/20 10:20 [facility] [id number]) Lumbar Spine Range of Motion Lumbar Spine Active Degrees Flexion 60 Extension 22 Rotation Left 64 Rotation Right 63 Lateral Flexion Left 18 Lateral Flexion Right 19 Comments L discomfort w/R SB Knee Goniometric Range of Motion Knee Right Flexion Active (degrees) 133 Extension Active (degrees) 4 Comments pain w/ext Left Flexion Active (degrees) 137 Extension Active (degrees) 2 PT-OP-L Special Tests Start: 06/21/20 08:02 Freq: Status: Active Protocol: Document 06/21/20 08:15 [facility] (Rec: 06/21/20 10:20 [facility] [id number]) Special Tests Knee Special Tests Straight Leg Raise Test Results mod HS tightness on L with min on R PT-OP-M Strength Start: 06/21/20 08:02 Freq: Status: Active Protocol: Document 06/21/20 08:15 [facility] (Rec: 06/21/20 10:20 [facility] [id number]) Hip Strength Hip Manual Muscle Testing Right Flexion (L2) 4 Good Extension (S1) 4 Good Abduction 4+ Good+ Adduction 5 Normal External Rotation 4 Good Internal Rotation 4 Good Left Flexion (L2) 4 Good Extension (S1) 4- Good- Abduction 5 Normal Adduction 5 Normal External Rotation 4 Good Internal Rotation 4 Good Comments pain LB with ext Knee Strength Knee Manual Muscle Testing Right Flexion (S2) 4+ Good+ Extension (L3) 5 Normal Left Flexion (S2) 5 Normal Extension (L3) 5 Normal Ankle/Foot Strength Ankle and Foot Manual Muscle Testing Right Dorsiflexion (L4) 5 Normal Plantarflexion (S1) 5 Normal Left Dorsiflexion (L4) 5 Normal Plantarflexion (S1) 5 Normal PT-OP-Q Treatments Start: 06/21/20 08:02 Freq: Status: Active Protocol: Document 07/24/20 08:16 [facility] (Rec: 07/24/20 12:09 [facility] [id number]) Cardio Equipment Recumbent Bicycle Duration (Minutes) 5 Resistance 11 Seat Position 7 Gym Equipment Cable Column (Body Solid) Rows Details focus on scap motion & posture Resistance 30# Reps/Time 15 Therapeutic Exercises Supine Exercises stretch Supine Exercise Name DKTC Side bilateral Reps/Minutes 30 sec Other Exercises linnette pose Reps/Minutes 30 sec Manual Therapy Treatment Soft Tissue Mobilization ES Body Location R>L thoracolumbar Mobilization Type Rolling,Strumming Intensity/Depth Moderate Body Position Prone Joint Mobilizations knee Joint R tibial IR mob into ext hip Joint B Direction inf glide FM Self-Care/Home Management Treatment Education Other Education Discussed trying hill walks d/ t flat walks no pain, discussed okay to resume wt lifting but to start at lower weights than he used 1 month ago and gradually inc as long as no knee or back pain PT-OP-T Assessment and Plan Start: 06/21/20 08:02 Freq: Status: Active Protocol: Document 07/24/20 08:16 [facility] (Rec: 07/24/20 12:09 [facility] [id number]) Physical Therapy Assessment Goals posture Short Term Goal (STG) Pt will demonstrate improved posture as shown by 4/5 on VCT to dec strain on back. STG Duration 07/22/20 Member Of [employer] Goal (LTG) Pt will demonstrate good lifting mecahnics in order to dec strain on backa nd knee. LTG Duration 08/21/20 activities Member [employer] Goal (LTG) Pt will be able to do all typical activities (walking, squatting, housework) without LBP or knee pain. LTG Duration 08/21/20 strength Short Term Goal (STG) Pt will be indep with appropriate stretching and strengthening program STG Duration 07/22/20 Member Of [employer] Goal (LTG) Pt will have 5/5 LE strength Assessment Summary Assessment Pt had imrpoved hip flex after mobilization today. Required edu again re: slow progression and exercises should not be painfult o knee or back. Instructed to try some hills and listen to his body and stop if there is pain. Physical Therapy Plan Frequency and Duration Frequency of Treatment 1-2x/weeks Duration of Treatment 2 months Plan of Care Start Date 06/21/20 Plan of Care End Date 08/21/20 Next Visit Focus/Plan Next Note Type Progress Note Next Visit Plan reassess next visit for PN and see progress and where need to focus for future; innominate mobility, PNF
--- NOTE | 2020-07-26 09:47 | PT.OTN ---
Current Diagnoses Pain in right knee (07/26/20) Low back pain (07/26/20) Abnormal posture (07/26/20) Weakness (07/26/20) Physical Therapy Treatment Note PT-OP-A Visit Information Start: 06/21/20 08:02 Freq: Status: Active Protocol: Document 07/26/20 09:09 [facility] (Rec: 07/26/20 09:47 [facility] [id number]) Out-Patient Physical Therapy Visit Information Visit Information Visit Type Progress Note Visit Note 09/16 Visit Start Time 09:04 Visit Stop Time 09:43 Total Visit Minutes 39 Visit Number 9 Number of MANPOWER DEVELOPMENT SPECIALIST MANAGER Visits 0 PT-OP-B Current Condition Start: 06/21/20 08:02 Freq: Status: Active Protocol: Document 06/21/20 08:15 [facility] (Rec: 06/21/20 10:20 [facility] [id number]) Current Condition History of Current Condition Onset Date mid Apr Current Complaints med R knee, LBP History of Current Condition Pt reports knee and back pain started aroundthe same timea nd they appear around the same time. Pt reports he was doing a lot of painting and climbing and moving ladders and also does knee ext & flex machines. He does those exercises often though feels like ladder was more likely culpret. Sometimes when stretching and doing exercises he feels the pain a little bit. Pt tries to do windshield wiper exercise but that is painful to LB. Pt had a fall in '98 and fell and hit in LB and conclusion was osteoporosis. Pt reprots the odd thing is when he has clicking in LB when he walks ( can walk2-3 miles) that he feels on L side with RLE movement. Sometimes it is every RLE step sometimes more intermittent. Pt reprots feels like it is ligaments popping over bone. Pt bikes and hikes and can bike 20 miles without knee pain. Knee used ot bother him when driving Prior Treatments and Tests Chiropractor but min relief - Xrays done and chiropractor doesn't think it is nerve pain Treatment Goals Patient/Caregiver Goals Stay active and determine whats cuasing pain and clicking, dec pain Personal Factors Other Personal Factors That May Effect Non-Hodgkin's Lymphoma, Therapy/Recovery history of LBP, gallbladder removal PT-OP-C Subjective Start: 06/21/20 08:02 Freq: Status: Active Protocol: Document 07/26/20 09:09 [facility] (Rec: 07/26/20 09:47 [facility] [id number]) OP-PT Subjective Patient Comments Patient Comments Pt reports he put in a finisher machine and felt his back aa little but felt okay PT-OP-D Balance Start: 06/21/20 08:02 Freq: Status: Active Protocol: Document 06/21/20 08:15 [facility] (Rec: 06/21/20 10:20 [facility] [id number]) Balance Tests Single Limb Standing Single Limb- Right 7 sec Single Limb- Left 11 sec PT-OP-F Manual Assessment Start: 06/21/20 08:02 Freq: Status: Active Protocol: Document 06/21/20 08:15 [facility] (Rec: 06/21/20 10:20 [facility] [id number]) Manual Assessments Soft Tissue Assessment Soft Tissue Mobility Assessment med joint line tenderness Joint Mobility Assessment Joint Mobility Assessment L iliac crest slightly higher; equal greater trochanters PT-OP-G Mobility & Gait Start: 06/21/20 08:02 Freq: Status: Active Protocol: Document 06/21/20 08:15 [facility] (Rec: 06/21/20 10:20 [facility] [id number]) OP Gait Assessment Comments Gait Comments dec push off B; dec foot clearance PT-OP-J Posture/Palpation/Skin Start: 06/21/20 08:02 Freq: Status: Active Protocol: Document 07/26/20 09:09 [facility] (Rec: 07/26/20 09:47 [facility] [id number]) Posture Evaluation Kerry Postural Classification System Kerry Postural Classifications Posterior/Posterior Vertebral Compression Test 3 Elbow Flexion Test 4 Lumbar Protective Mechanism Left AP 3 Lumbar Protective Mechanism Right AP 1 Lumbar Protective Mechanism Left PA 3 Lumbar Protective Mechanism Right PA 3 PT-OP-K Range of Motion Start: 06/21/20 08:02 Freq: Status: Active Protocol: Document 06/21/20 08:15 [facility] (Rec: 06/21/20 10:20 [facility] [id number]) Lumbar Spine Range of Motion Lumbar Spine Active Degrees Flexion 60 Extension 22 Rotation Left 64 Rotation Right 63 Lateral Flexion Left 18 Lateral Flexion Right 19 Comments L discomfort w/R SB Knee Goniometric Range of Motion Knee Right Flexion Active (degrees) 133 Extension Active (degrees) 4 Comments pain w/ext Left Flexion Active (degrees) 137 Extension Active (degrees) 2 PT-OP-L Special Tests Start: 06/21/20 08:02 Freq: Status: Active Protocol: Document 06/21/20 08:15 [facility] (Rec: 06/21/20 10:20 [facility] [id number]) Special Tests Knee Special Tests Straight Leg Raise Test Results mod HS tightness on L with min on R PT-OP-M Strength Start: 06/21/20 08:02 Freq: Status: Active Protocol: Document 07/26/20 09:09 [facility] (Rec: 07/26/20 09:47 [facility] [id number]) Hip Strength Hip Manual Muscle Testing Right Flexion (L2) 4+ Good+ Extension (S1) 4 Good Abduction 4+ Good+ Adduction 5 Normal External Rotation 5 Normal Internal Rotation 4+ Good+ Left Flexion (L2) 4+ Good+ Extension (S1) 4+ Good+ Abduction 5 Normal Adduction 5 Normal External Rotation 5 Normal Internal Rotation 5 Normal Comments can feel in LB with ext B Knee Strength Knee Manual Muscle Testing Right Flexion (S2) 5 Normal Extension (L3) 5 Normal Left Flexion (S2) 5 Normal Extension (L3) 5 Normal Ankle/Foot Strength Ankle and Foot Manual Muscle Testing Right Dorsiflexion (L4) 5 Normal Plantarflexion (S1) 5 Normal Left Dorsiflexion (L4) 5 Normal Plantarflexion (S1) 5 Normal Comments able to do 20 heel raises B PT-OP-Q Treatments Start: 06/21/20 08:02 Freq: Status: Active Protocol: Document 07/26/20 09:09 [facility] (Rec: 07/26/20 09:47 [facility] [id number]) Cardio Equipment Bicycle (Upright) Duration (Minutes) 5 Resistance 10 Seat Position 6 Therapeutic Exercises Standing Exercises stretch Standing Exercise Name bottoms up dynamic HS stretch Side bilateral Reps/Minutes 12 PT-OP-T Assessment and Plan Start: 06/21/20 08:02 Freq: Status: Active Protocol: Document 07/26/20 09:09 [facility] (Rec: 07/26/20 09:47 [facility] [id number]) Physical Therapy Assessment Goals posture Short Term Goal (STG) Pt will demonstrate improved posture as shown by 4/5 on VCT to dec strain on back. STG Duration 07/22/20 Correction Goal (LTG) Pt will demonstrate good lifting mecahnics in order to dec strain on backa nd knee. LTG Duration 08/21/20 activities Funeral Car Driver Goal (LTG) Pt will be able to do all typical activities (walking, squatting, housework) without LBP or knee pain. LTG Duration 08/21/20 strength Short Term Goal (STG) Pt will be indep with appropriate stretching and strengthening program STG Duration achieved progressing as needed Correction Goal (LTG) Pt will have 5/5 LE strength to allow improved ability to walk and do typical activities without pain. LTG Duration 08/21/20 Assessment Summary Assessment Pt had improved hip flex with sepearation of innominate and sacrum after mobilization. Pt cont to benefit from edu re: mechancis & what DDD means etc . He is improving with posture and core stabiltiy along with LE strength and would benefit from cont PT to cont to work on dec discomfort & clicking along with imrpoving functional mobiliy Physical Therapy Plan Frequency and Duration Frequency of Treatment 1-2x/weeks Duration of Treatment 2 months Plan of Care Start Date 06/21/20 Plan of Care End Date 08/21/20 Therapeutic Interventions Therapeutic Interventions Aquatic Therapy,Balance Training,Gait Training,Home Exercise Program,Joint Mobilizations,Manual Therapy, Neuromuscular Re-education, Patient/Caregiver Education, Self-Care/Home Management,Soft Tissue Mobilization,Taping, Therapeutic Activities, Therapeutic Exercises Modalities Cold Pack/Ice Massage,Hot Packs Next Visit Focus/Plan Next Note Type Treatment Note Next Visit Plan work on lifting mechanics, work on core,innominate mobility, PNF
--- NOTE | 2020-07-30 10:20 | PT.OTN ---
Current Diagnoses Pain in right knee (07/30/20) Low back pain (07/30/20) Abnormal posture (07/30/20) Weakness (07/30/20) Physical Therapy Treatment Note PT-OP-A Visit Information Start: 06/21/20 08:02 Freq: Status: Active Protocol: Document 07/30/20 14:37 MA (Rec: 07/30/20 14:43 MA [id number]) Out-Patient Physical Therapy Visit Information Visit Information Visit Type Treatment Note Visit Start Time 09:30 Visit Stop Time 10:17 Total Visit Minutes 47 Visit Number 10 Number of OXYHYDROGEN WELDER Visits 1 PT-OP-B Current Condition Start: 06/21/20 08:02 Freq: Status: Active Protocol: Document 06/21/20 08:15 LR (Rec: 06/21/20 10:20 [facility] [id number]) Current Condition History of Current Condition Onset Date mid Apr Current Complaints med R knee, LBP History of Current Condition Pt reports knee and back pain started aroundthe same timea nd they appear around the same time. Pt reports he was doing a lot of painting and climbing and moving ladders and also does knee ext & flex machines. He does those exercises often though feels like ladder was more likely culpret. Sometimes when stretching and doing exercises he feels the pain a little bit. Pt tries to do windshield wiper exercise but that is painful to LB. Pt had a fall in '98 and fell and hit in LB and conclusion was osteoporosis. Pt reprots the odd thing is when he has clicking in LB when he walks ( can walk2-3 miles) that he feels on L side with RLE movement. Sometimes it is every RLE step sometimes more intermittent. Pt reprots feels like it is ligaments popping over bone. Pt bikes and hikes and can bike 20 miles without knee pain. Knee used ot bother him when driving Prior Treatments and Tests Chiropractor but min relief - Xrays done and chiropractor doesn't think it is nerve pain Treatment Goals Patient/Caregiver Goals Stay active and determine whats cuasing pain and clicking, dec pain Personal Factors Other Personal Factors That May Effect Non-Hodgkin's Lymphoma, Therapy/Recovery history of LBP, gallbladder removal PT-OP-C Subjective Start: 06/21/20 08:02 Freq: Status: Active Protocol: Document 07/30/20 14:37 MA (Rec: 07/30/20 14:43 MA [id number]) OP-PT Subjective Patient Comments Patient Comments Pt has been working on installing a sink, laying in his back a lot. His L SI joint is bothering him but has not had any knee pain recently PT-OP-D Balance Start: 06/21/20 08:02 Freq: Status: Active Protocol: Document 06/21/20 08:15 [facility] (Rec: 06/21/20 10:20 [facility] [id number]) Balance Tests Single Limb Standing Single Limb- Right 7 sec Single Limb- Left 11 sec PT-OP-F Manual Assessment Start: 06/21/20 08:02 Freq: Status: Active Protocol: Document 06/21/20 08:15 [facility] (Rec: 06/21/20 10:20 [facility] [id number]) Manual Assessments Soft Tissue Assessment Soft Tissue Mobility Assessment med joint line tenderness Joint Mobility Assessment Joint Mobility Assessment L iliac crest slightly higher; equal greater trochanters PT-OP-G Mobility & Gait Start: 06/21/20 08:02 Freq: Status: Active Protocol: Document 06/21/20 08:15 [facility] (Rec: 06/21/20 10:20 [facility] [id number]) OP Gait Assessment Comments Gait Comments dec push off B; dec foot clearance PT-OP-J Posture/Palpation/Skin Start: 06/21/20 08:02 Freq: Status: Active Protocol: Document 07/26/20 09:09 [facility] (Rec: 07/26/20 09:47 [facility] [id number]) Posture Evaluation Kerry Postural Classification System Kerry Postural Classifications Posterior/Posterior Vertebral Compression Test 3 Elbow Flexion Test 4 Lumbar Protective Mechanism Left AP 3 Lumbar Protective Mechanism Right AP 1 Lumbar Protective Mechanism Left PA 3 Lumbar Protective Mechanism Right PA 3 PT-OP-K Range of Motion Start: 06/21/20 08:02 Freq: Status: Active Protocol: Document 06/21/20 08:15 [facility] (Rec: 06/21/20 10:20 [facility] [id number]) Lumbar Spine Range of Motion Lumbar Spine Active Degrees Flexion 60 Extension 22 Rotation Left 64 Rotation Right 63 Lateral Flexion Left 18 Lateral Flexion Right 19 Comments L discomfort w/R SB Knee Goniometric Range of Motion Knee Right Flexion Active (degrees) 133 Extension Active (degrees) 4 Comments pain w/ext Left Flexion Active (degrees) 137 Extension Active (degrees) 2 PT-OP-L Special Tests Start: 06/21/20 08:02 Freq: Status: Active Protocol: Document 06/21/20 08:15 [facility] (Rec: 06/21/20 10:20 [facility] [id number]) Special Tests Knee Special Tests Straight Leg Raise Test Results mod HS tightness on L with min on R PT-OP-M Strength Start: 06/21/20 08:02 Freq: Status: Active Protocol: Document 07/26/20 09:09 [facility] (Rec: 07/26/20 09:47 [facility] [id number]) Hip Strength Hip Manual Muscle Testing Right Flexion (L2) 4+ Good+ Extension (S1) 4 Good Abduction 4+ Good+ Adduction 5 Normal External Rotation 5 Normal Internal Rotation 4+ Good+ Left Flexion (L2) 4+ Good+ Extension (S1) 4+ Good+ Abduction 5 Normal Adduction 5 Normal External Rotation 5 Normal Internal Rotation 5 Normal Comments can feel in LB with ext B Knee Strength Knee Manual Muscle Testing Right Flexion (S2) 5 Normal Extension (L3) 5 Normal Left Flexion (S2) 5 Normal Extension (L3) 5 Normal Ankle/Foot Strength Ankle and Foot Manual Muscle Testing Right Dorsiflexion (L4) 5 Normal Plantarflexion (S1) 5 Normal Left Dorsiflexion (L4) 5 Normal Plantarflexion (S1) 5 Normal Comments able to do 20 heel raises B PT-OP-Q Treatments Start: 06/21/20 08:02 Freq: Status: Active Protocol: Document 07/30/20 14:37 MA (Rec: 07/30/20 14:43 MA [id number]) Cardio Equipment Bicycle (Upright) Duration (Minutes) 5 Resistance 10 Seat Position 6 Therapeutic Exercises Supine Exercises stretch Supine Exercise Name HS Side left Equipment Used Belt Reps/Minutes 60 seconds Comments added hip IR/ER during stretch bridge Side bilateral Equipment Used ball between knees Reps/Minutes 10x Comments 10 second squeeze of ball Prone Exercises Hip Ext Side left Reps/Minutes x10 Quad stretch Side left Reps/Minutes 60 sec Sitting Exercises HS Side left Equipment Used Rolling pin Reps/Minutes 2 min Manual Therapy Treatment Soft Tissue Mobilization HS Body Location L Mobilization Type Myofascial Release,Rolling, Sustained Pressure,Trigger Point Release Intensity/Depth Moderate Body Position Supine ITB Body Location L Mobilization Type Myofascial Release,Sustained Pressure,Trigger Point Release Intensity/Depth Moderate Body Position Hooklying Joint Mobilizations innominate Joint L SI Grade II Body Position Hooklying Self-Care/Home Management Treatment Education Patient Education Body Mechanics,Pain Management Other Education Educated pt on SI joint, reviewed anatomy on skeleton PT-OP-T Assessment and Plan Start: 06/21/20 08:02 Freq: Status: Active Protocol: Document 07/30/20 14:37 MA (Rec: 07/30/20 14:43 MA [email or web address]) Physical Therapy Assessment Goals posture Short Term Goal (STG) Pt will demonstrate improved posture as shown by 4/5 on VCT to dec strain on back. STG Duration 07/22/20 Heavy Equipment Operator Goal (LTG) Pt will demonstrate good lifting mecahnics in order to dec strain on backa nd knee. LTG Duration 08/21/20 activities Heavy Equipment Operator Goal (LTG) Pt will be able to do all typical activities (walking, squatting, housework) without LBP or knee pain. LTG Duration 08/21/20 strength Short Term Goal (STG) Pt will be indep with appropriate stretching and strengthening program STG Duration achieved progressing as needed Heavy Equipment Operator Goal (LTG) Pt will have 5/5 LE strength to allow improved ability to walk and do typical activities without pain. LTG Duration 08/21/20 Assessment Summary Assessment Educated pt on SI joint. Pt was tender along ITB-added rolling pin along HS, ITB, and quads for mm release. Pt would benefit from therapy for SI jt mobs and releasing mm tension Physical Therapy Plan Frequency and Duration Frequency of Treatment 1-2x/weeks Duration of Treatment 2 months Plan of Care Start Date 06/21/20 Plan of Care End Date 08/21/20 Next Visit Focus/Plan Next Note Type Treatment Note Next Visit Plan Work on lifting mechanics, innominate mobility, STM and stretches for ITB, HS, Quads
--- NOTE | 2020-08-01 09:48 | PT.OTN ---
Current Diagnoses Pain in right knee (08/01/20) Low back pain (08/01/20) Abnormal posture (08/01/20) Weakness (08/01/20) Physical Therapy Treatment Note PT-OP-A Visit Information Start: 06/21/20 08:02 Freq: Status: Active Protocol: Document 08/01/20 08:21 [facility] (Rec: 08/01/20 09:48 [facility] [id number]) Out-Patient Physical Therapy Visit Information Visit Information Visit Type Treatment Note Visit Start Time 08:19 Visit Stop Time 09:01 Total Visit Minutes 42 Visit Number 11 Number of SHANK PIECE TACKER Visits 0 PT-OP-B Current Condition Start: 06/21/20 08:02 Freq: Status: Active Protocol: Document 06/21/20 08:15 [facility] (Rec: 06/21/20 10:20 [facility] [id number]) Current Condition History of Current Condition Onset Date mid Apr Current Complaints med R knee, LBP History of Current Condition Pt reports knee and back pain started aroundthe same timea nd they appear around the same time. Pt reports he was doing a lot of painting and climbing and moving ladders and also does knee ext & flex machines. He does those exercises often though feels like ladder was more likely culpret. Sometimes when stretching and doing exercises he feels the pain a little bit. Pt tries to do windshield wiper exercise but that is painful to LB. Pt had a fall in '98 and fell and hit in LB and conclusion was osteoporosis. Pt reprots the odd thing is when he has clicking in LB when he walks ( can walk2-3 miles) that he feels on L side with RLE movement. Sometimes it is every RLE step sometimes more intermittent. Pt reprots feels like it is ligaments popping over bone. Pt bikes and hikes and can bike 20 miles without knee pain. Knee used ot bother him when driving Prior Treatments and Tests Chiropractor but min relief - Xrays done and chiropractor doesn't think it is nerve pain Treatment Goals Patient/Caregiver Goals Stay active and determine whats cuasing pain and clicking, dec pain Personal Factors Other Personal Factors That May Effect Non-Hodgkin's Lymphoma, Therapy/Recovery history of LBP, gallbladder removal PT-OP-C Subjective Start: 06/21/20 08:02 Freq: Status: Active Protocol: Document 08/01/20 08:21 [facility] (Rec: 08/01/20 09:48 [facility] [id number]) OP-PT Subjective Patient Comments Patient Comments Pt reports some sorenss in L SI after his sink work this week. Every now and then walking up stairs he notices his knee but rarely or sometimes when turning he gets a click. Pt reprots he is noticing his back click less PT-OP-D Balance Start: 06/21/20 08:02 Freq: Status: Active Protocol: Document 06/21/20 08:15 [facility] (Rec: 06/21/20 10:20 [facility] [id number]) Balance Tests Single Limb Standing Single Limb- Right 7 sec Single Limb- Left 11 sec PT-OP-F Manual Assessment Start: 06/21/20 08:02 Freq: Status: Active Protocol: Document 06/21/20 08:15 [facility] (Rec: 06/21/20 10:20 [facility] [id number]) Manual Assessments Soft Tissue Assessment Soft Tissue Mobility Assessment med joint line tenderness Joint Mobility Assessment Joint Mobility Assessment L iliac crest slightly higher; equal greater trochanters PT-OP-G Mobility & Gait Start: 06/21/20 08:02 Freq: Status: Active Protocol: Document 06/21/20 08:15 [facility] (Rec: 06/21/20 10:20 [facility] [id number]) OP Gait Assessment Comments Gait Comments dec push off B; dec foot clearance PT-OP-J Posture/Palpation/Skin Start: 06/21/20 08:02 Freq: Status: Active Protocol: Document 07/26/20 09:09 [facility] (Rec: 07/26/20 09:47 [facility] [id number]) Posture Evaluation Kerry Postural Classification System Kerry Postural Classifications Posterior/Posterior Vertebral Compression Test 3 Elbow Flexion Test 4 Lumbar Protective Mechanism Left AP 3 Lumbar Protective Mechanism Right AP 1 Lumbar Protective Mechanism Left PA 3 Lumbar Protective Mechanism Right PA 3 PT-OP-K Range of Motion Start: 06/21/20 08:02 Freq: Status: Active Protocol: Document 06/21/20 08:15 [facility] (Rec: 06/21/20 10:20 [facility] [id number]) Lumbar Spine Range of Motion Lumbar Spine Active Degrees Flexion 60 Extension 22 Rotation Left 64 Rotation Right 63 Lateral Flexion Left 18 Lateral Flexion Right 19 Comments L discomfort w/R SB Knee Goniometric Range of Motion Knee Right Flexion Active (degrees) 133 Extension Active (degrees) 4 Comments pain w/ext Left Flexion Active (degrees) 137 Extension Active (degrees) 2 PT-OP-L Special Tests Start: 06/21/20 08:02 Freq: Status: Active Protocol: Document 06/21/20 08:15 [facility] (Rec: 06/21/20 10:20 [facility] [id number]) Special Tests Knee Special Tests Straight Leg Raise Test Results mod HS tightness on L with min on R PT-OP-M Strength Start: 06/21/20 08:02 Freq: Status: Active Protocol: Document 07/26/20 09:09 [facility] (Rec: 07/26/20 09:47 [facility] [id number]) Hip Strength Hip Manual Muscle Testing Right Flexion (L2) 4+ Good+ Extension (S1) 4 Good Abduction 4+ Good+ Adduction 5 Normal External Rotation 5 Normal Internal Rotation 4+ Good+ Left Flexion (L2) 4+ Good+ Extension (S1) 4+ Good+ Abduction 5 Normal Adduction 5 Normal External Rotation 5 Normal Internal Rotation 5 Normal Comments can feel in LB with ext B Knee Strength Knee Manual Muscle Testing Right Flexion (S2) 5 Normal Extension (L3) 5 Normal Left Flexion (S2) 5 Normal Extension (L3) 5 Normal Ankle/Foot Strength Ankle and Foot Manual Muscle Testing Right Dorsiflexion (L4) 5 Normal Plantarflexion (S1) 5 Normal Left Dorsiflexion (L4) 5 Normal Plantarflexion (S1) 5 Normal Comments able to do 20 heel raises B PT-OP-Q Treatments Start: 06/21/20 08:02 Freq: Status: Active Protocol: Document 08/01/20 08:21 [facility] (Rec: 08/01/20 09:48 [facility] [id number]) Cardio Equipment Recumbent Bicycle Duration (Minutes) 5 Resistance 12 Seat Position 8 Therapeutic Exercises Sitting Exercises Butterfly Stretch Sitting Exercise Name figure 4 Side bilateral Reps/Minutes 30 sec x2 B Comments cues to keep back straight and gently push down on inner thighs Standing Exercises QL stretch Standing Exercise Name adjusted to seated Side bilateral Reps/Minutes 30 sec Comments more comfortable wall posture Side bilateral Reps/Minutes 1 min hold x2w/arms into ext Manual Therapy Treatment Soft Tissue Mobilization ES Body Location L lumbar ES & QL Mobilization Type Rolling,Strumming Intensity/Depth Moderate Body Position Sidelying Comments w/post dep Joint Mobilizations innominate Joint L innominate Direction caudal FM hip Joint B Direction hip on axis ER FM Self-Care/Home Management Treatment Education Other Education how to set up in livingroom chair PT-OP-T Assessment and Plan Start: 06/21/20 08:02 Freq: Status: Active Protocol: Document 08/01/20 08:21 [facility] (Rec: 08/01/20 09:48 [facility] [id number]) Physical Therapy Assessment Goals posture Short Term Goal (STG) Pt will demonstrate improved posture as shown by 4/5 on VCT to dec strain on back. STG Duration 07/22/20 Alf Goal (LTG) Pt will demonstrate good lifting mecahnics in order to dec strain on backa nd knee. LTG Duration 08/21/20 activities Alf Goal (LTG) Pt will be able to do all typical activities (walking, squatting, housework) without LBP or knee pain. LTG Duration 08/21/20 strength Short Term Goal (STG) Pt will be indep with appropriate stretching and strengthening program STG Duration achieved progressing as needed Alf Goal (LTG) Pt will have 5/5 LE strength to allow improved ability to walk and do typical activities without pain. LTG Duration 08/21/20 Assessment Summary Assessment Pt had improved ER in seated after manual treatment. Cueing required with exercisesa dn pt educated on improtance of proper chair set up. Physical Therapy Plan Frequency and Duration Frequency of Treatment 1-2x/weeks Duration of Treatment 2 months Plan of Care Start Date 06/21/20 Plan of Care End Date 08/21/20 Next Visit Focus/Plan Next Note Type Treatment Note Next Visit Plan Work on lifting mechanics, innominate mobility, STM and stretches for ITB, HS, Quads
--- NOTE | 2020-08-06 11:19 | PT.OTN ---
Current Diagnoses Pain in right knee (08/06/20) Low back pain (08/06/20) Abnormal posture (08/06/20) Weakness (08/06/20) Physical Therapy Treatment Note PT-OP-A Visit Information Start: 06/21/20 08:02 Freq: Status: Active Protocol: Document 08/06/20 08:17 [facility] (Rec: 08/06/20 11:19 [facility] [id number]) Out-Patient Physical Therapy Visit Information Visit Information Visit Type Treatment Note Visit Start Time 08:16 Visit Stop Time 08:58 Total Visit Minutes 42 Visit Number 12 Number of TRANSIT OPERATOR Visits 0 PT-OP-B Current Condition Start: 06/21/20 08:02 Freq: Status: Active Protocol: Document 06/21/20 08:15 [facility] (Rec: 06/21/20 10:20 [facility] [id number]) Current Condition History of Current Condition Onset Date mid Apr Current Complaints med R knee, LBP History of Current Condition Pt reports knee and back pain started aroundthe same timea nd they appear around the same time. Pt reports he was doing a lot of painting and climbing and moving ladders and also does knee ext & flex machines. He does those exercises often though feels like ladder was more likely culpret. Sometimes when stretching and doing exercises he feels the pain a little bit. Pt tries to do windshield wiper exercise but that is painful to LB. Pt had a fall in '98 and fell and hit in [place] and conclusion was osteoporosis. Pt reprots the odd thing is when he has clicking in LB when he walks ( can walk2-3 miles) that he feels on L side with RLE movement. Sometimes it is every RLE step sometimes more intermittent. Pt reprots feels like it is ligaments popping over bone. Pt bikes and hikes and can bike 20 miles without knee pain. Knee used ot bother him when driving Prior Treatments and Tests Chiropractor but min relief - Xrays done and chiropractor doesn't think it is nerve pain Treatment Goals Patient/Caregiver Goals Stay active and determine whats cuasing pain and clicking, dec pain Personal Factors Other Personal Factors That May Effect Non-Hodgkin's Lymphoma, Therapy/Recovery history of LBP, gallbladder removal PT-OP-C Subjective Start: 06/21/20 08:02 Freq: Status: Active Protocol: Document 08/06/20 08:17 [facility] (Rec: 08/06/20 11:19 [facility] [id number]) OP-PT Subjective Patient Comments Patient Comments Pt reports pain has been pretty good. Notes stretching helps but he still feels left side. He has to be persistant about stretching in AMs. Pt notes he may notice his back minorly when walking. Knee is doing pretty good. PT-OP-D Balance Start: 06/21/20 08:02 Freq: Status: Active Protocol: Document 06/21/20 08:15 [facility] (Rec: 06/21/20 10:20 [facility] [id number]) Balance Tests Single Limb Standing Single Limb- Right 7 sec Single Limb- Left 11 sec PT-OP-F Manual Assessment Start: 06/21/20 08:02 Freq: Status: Active Protocol: Document 06/21/20 08:15 [facility] (Rec: 06/21/20 10:20 [facility] [id number]) Manual Assessments Soft Tissue Assessment Soft Tissue Mobility Assessment med joint line tenderness Joint Mobility Assessment Joint Mobility Assessment L iliac crest slightly higher; equal greater trochanters PT-OP-G Mobility & Gait Start: 06/21/20 08:02 Freq: Status: Active Protocol: Document 06/21/20 08:15 [facility] (Rec: 06/21/20 10:20 [facility] [id number]) OP Gait Assessment Comments Gait Comments dec push off B; dec foot clearance PT-OP-J Posture/Palpation/Skin Start: 06/21/20 08:02 Freq: Status: Active Protocol: Document 07/26/20 09:09 [facility] (Rec: 07/26/20 09:47 [facility] [id number]) Posture Evaluation Kerry Postural Classification System Kerry Postural Classifications Posterior/Posterior Vertebral Compression Test 3 Elbow Flexion Test 4 Lumbar Protective Mechanism Left AP 3 Lumbar Protective Mechanism Right AP 1 Lumbar Protective Mechanism Left PA 3 Lumbar Protective Mechanism Right PA 3 PT-OP-K Range of Motion Start: 06/21/20 08:02 Freq: Status: Active Protocol: Document 06/21/20 08:15 [facility] (Rec: 06/21/20 10:20 [facility] [id number]) Lumbar Spine Range of Motion Lumbar Spine Active Degrees Flexion 60 Extension 22 Rotation Left 64 Rotation Right 63 Lateral Flexion Left 18 Lateral Flexion Right 19 Comments L discomfort w/R SB Knee Goniometric Range of Motion Knee Right Flexion Active (degrees) 133 Extension Active (degrees) 4 Comments pain w/ext Left Flexion Active (degrees) 137 Extension Active (degrees) 2 PT-OP-L Special Tests Start: 06/21/20 08:02 Freq: Status: Active Protocol: Document 06/21/20 08:15 [facility] (Rec: 06/21/20 10:20 [facility] [id number]) Special Tests Knee Special Tests Straight Leg Raise Test Results mod HS tightness on L with min on R PT-OP-M Strength Start: 06/21/20 08:02 Freq: Status: Active Protocol: Document 07/26/20 09:09 [facility] (Rec: 07/26/20 09:47 [facility] [id number]) Hip Strength Hip Manual Muscle Testing Right Flexion (L2) 4+ Good+ Extension (S1) 4 Good Abduction 4+ Good+ Adduction 5 Normal External Rotation 5 Normal Internal Rotation 4+ Good+ Left Flexion (L2) 4+ Good+ Extension (S1) 4+ Good+ Abduction 5 Normal Adduction 5 Normal External Rotation 5 Normal Internal Rotation 5 Normal Comments can feel in LB with ext B Knee Strength Knee Manual Muscle Testing Right Flexion (S2) 5 Normal Extension (L3) 5 Normal Left Flexion (S2) 5 Normal Extension (L3) 5 Normal Ankle/Foot Strength Ankle and Foot Manual Muscle Testing Right Dorsiflexion (L4) 5 Normal Plantarflexion (S1) 5 Normal Left Dorsiflexion (L4) 5 Normal Plantarflexion (S1) 5 Normal Comments able to do 20 heel raises B PT-OP-Q Treatments Start: 06/21/20 08:02 Freq: Status: Active Protocol: Document 08/06/20 08:17 [facility] (Rec: 08/06/20 11:19 [facility] [id number]) Cardio Equipment Bicycle (Upright) Duration (Minutes) 7 Resistance 10 Seat Position 7 Therapeutic Exercises Sidelying Exercises basking seal Side left Standing Exercises gait at wall Standing Exercise Name for post depression facilitation Side bilateral Reps/Minutes 10 secx2 Manual Therapy Treatment Soft Tissue Mobilization ES Body Location L lumbar ES & QL Mobilization Type Rolling,Strumming Intensity/Depth Moderate Body Position Sidelying Comments w/post dep Joint Mobilizations sacrum Joint caudal glide w/post dep Neuro Re-Education Treatment Other Activities PNF Details post dep Comments 1. rhythmic initiation 2. Combo of isotonics 3. sustained isometrics 4. sustained isometric w/LE pattern PT-OP-T Assessment and Plan Start: 06/21/20 08:02 Freq: Status: Active Protocol: Document 08/06/20 08:17 [facility] (Rec: 08/06/20 11:19 [facility] [id number]) Physical Therapy Assessment Goals posture Short Term Goal (STG) Pt will demonstrate improved posture as shown by 4/5 on VCT to dec strain on back. STG Duration 07/22/20 Halfway Goal (LTG) Pt will demonstrate good lifting mecahnics in order to dec strain on backa nd knee. LTG Duration 08/21/20 activities Halfway Goal (LTG) Pt will be able to do all typical activities (walking, squatting, housework) without LBP or knee pain. LTG Duration 08/21/20 strength Short Term Goal (STG) Pt will be indep with appropriate stretching and strengthening program STG Duration achieved progressing as needed Halfway Goal (LTG) Pt will have 5/5 LE strength to allow improved ability to walk and do typical activities without pain. LTG Duration 08/21/20 Assessment Summary Assessment Pt had improved post depression motion after manual treatment. Pt able to perofrm new exercises with cueing and was edcuate don how they help to maintain post depression. Physical Therapy Plan Frequency and Duration Frequency of Treatment 1-2x/weeks Duration of Treatment 2 months Plan of Care Start Date 06/21/20 Plan of Care End Date 08/21/20 Next Visit Focus/Plan Next Note Type Treatment Note Next Visit Plan Work on lifting mechanics, innominate mobility, STM
--- NOTE | 2020-08-08 09:46 | PT.OTN ---
Current Diagnoses Pain in right knee (08/08/20) Low back pain (08/08/20) Abnormal posture (08/08/20) Weakness (08/08/20) Physical Therapy Treatment Note PT-OP-A Visit Information Start: 06/21/20 08:02 Freq: Status: Active Protocol: Document 08/08/20 08:57 [facility] (Rec: 08/08/20 09:46 [facility] [id number]) Out-Patient Physical Therapy Visit Information Visit Information Visit Type Treatment Note Visit Note 12/15 Visit Start Time 09:01 Visit Stop Time 09:42 Total Visit Minutes 41 Visit Number 13 Number of DERRICK MAN Visits 0 PT-OP-B Current Condition Start: 06/21/20 08:02 Freq: Status: Active Protocol: Document 06/21/20 08:15 [facility] (Rec: 06/21/20 10:20 [facility] [id number]) Current Condition History of Current Condition Onset Date mid Apr Current Complaints med R knee, LBP History of Current Condition Pt reports knee and back pain started aroundthe same timea nd they appear around the same time. Pt reports he was doing a lot of painting and climbing and moving ladders and also does knee ext & flex machines. He does those exercises often though feels like ladder was more likely culpret. Sometimes when stretching and doing exercises he feels the pain a little bit. Pt tries to do windshield wiper exercise but that is painful to LB. Pt had a fall in '98 and fell and hit in [place] and conclusion was osteoporosis. Pt reprots the odd thing is when he has clicking in LB when he walks ( can walk2-3 miles) that he feels on L side with RLE movement. Sometimes it is every RLE step sometimes more intermittent. Pt reprots feels like it is ligaments popping over bone. Pt bikes and hikes and can bike 20 miles without knee pain. Knee used ot bother him when driving Prior Treatments and Tests Chiropractor but min relief - Xrays done and chiropractor doesn't think it is nerve pain Treatment Goals Patient/Caregiver Goals Stay active and determine whats cuasing pain and clicking, dec pain Personal Factors Other Personal Factors That May Effect Non-Hodgkin's Lymphoma, Therapy/Recovery history of LBP, gallbladder removal PT-OP-C Subjective Start: 06/21/20 08:02 Freq: Status: Active Protocol: Document 08/08/20 08:57 [facility] (Rec: 08/08/20 09:46 [facility] [id number]) OP-PT Subjective Patient Comments Patient Comments Pt reports he felt really good after the manual treatment last time. He did [place]. He reprots he did well while walking but had some irritation then went through his exercises. This AM he had just a little pain. PT-OP-D Balance Start: 06/21/20 08:02 Freq: Status: Active Protocol: Document 06/21/20 08:15 [facility] (Rec: 06/21/20 10:20 [facility] [id number]) Balance Tests Single Limb Standing Single Limb- Right 7 sec Single Limb- Left 11 sec PT-OP-F Manual Assessment Start: 06/21/20 08:02 Freq: Status: Active Protocol: Document 06/21/20 08:15 [facility] (Rec: 06/21/20 10:20 [facility] [id number]) Manual Assessments Soft Tissue Assessment Soft Tissue Mobility Assessment med joint line tenderness Joint Mobility Assessment Joint Mobility Assessment L iliac crest slightly higher; equal greater trochanters PT-OP-G Mobility & Gait Start: 06/21/20 08:02 Freq: Status: Active Protocol: Document 06/21/20 08:15 [facility] (Rec: 06/21/20 10:20 [facility] [id number]) OP Gait Assessment Comments Gait Comments dec push off B; dec foot clearance PT-OP-J Posture/Palpation/Skin Start: 06/21/20 08:02 Freq: Status: Active Protocol: Document 07/26/20 09:09 [facility] (Rec: 07/26/20 09:47 [facility] [id number]) Posture Evaluation Kerry Postural Classification System Kerry Postural Classifications Posterior/Posterior Vertebral Compression Test 3 Elbow Flexion Test 4 Lumbar Protective Mechanism Left AP 3 Lumbar Protective Mechanism Right AP 1 Lumbar Protective Mechanism Left PA 3 Lumbar Protective Mechanism Right PA 3 PT-OP-K Range of Motion Start: 06/21/20 08:02 Freq: Status: Active Protocol: Document 06/21/20 08:15 [facility] (Rec: 06/21/20 10:20 [facility] [id number]) Lumbar Spine Range of Motion Lumbar Spine Active Degrees Flexion 60 Extension 22 Rotation Left 64 Rotation Right 63 Lateral Flexion Left 18 Lateral Flexion Right 19 Comments L discomfort w/R SB Knee Goniometric Range of Motion Knee Right Flexion Active (degrees) 133 Extension Active (degrees) 4 Comments pain w/ext Left Flexion Active (degrees) 137 Extension Active (degrees) 2 PT-OP-L Special Tests Start: 06/21/20 08:02 Freq: Status: Active Protocol: Document 06/21/20 08:15 [facility] (Rec: 06/21/20 10:20 [facility] [id number]) Special Tests Knee Special Tests Straight Leg Raise Test Results mod HS tightness on L with min on R PT-OP-M Strength Start: 06/21/20 08:02 Freq: Status: Active Protocol: Document 07/26/20 09:09 [facility] (Rec: 07/26/20 09:47 [facility] [id number]) Hip Strength Hip Manual Muscle Testing Right Flexion (L2) 4+ Good+ Extension (S1) 4 Good Abduction 4+ Good+ Adduction 5 Normal External Rotation 5 Normal Internal Rotation 4+ Good+ Left Flexion (L2) 4+ Good+ Extension (S1) 4+ Good+ Abduction 5 Normal Adduction 5 Normal External Rotation 5 Normal Internal Rotation 5 Normal Comments can feel in LB with ext B Knee Strength Knee Manual Muscle Testing Right Flexion (S2) 5 Normal Extension (L3) 5 Normal Left Flexion (S2) 5 Normal Extension (L3) 5 Normal Ankle/Foot Strength Ankle and Foot Manual Muscle Testing Right Dorsiflexion (L4) 5 Normal Plantarflexion (S1) 5 Normal Left Dorsiflexion (L4) 5 Normal Plantarflexion (S1) 5 Normal Comments able to do 20 heel raises B PT-OP-Q Treatments Start: 06/21/20 08:02 Freq: Status: Active Protocol: Document 08/08/20 08:57 [facility] (Rec: 08/08/20 09:46 [facility] [id number]) Cardio Equipment Bicycle (Upright) Duration (Minutes) 5 Resistance 10 Seat Position 7 Therapeutic Exercises Sidelying Exercises basking seal Side bilateral Reps/Minutes 10 Standing Exercises gait at wall Standing Exercise Name for post depression facilitation Side bilateral Reps/Minutes 10 sec Manual Therapy Treatment Soft Tissue Mobilization ES Body Location L lumbar & sacral ES & QL Mobilization Type Rolling,Strumming Intensity/Depth Moderate Body Position Sidelying Comments w/post dep Neuro Re-Education Treatment Other Activities PNF Details post dep & ant elevation Comments 1. rhythmic initiation 2. Combo of isotonics progressed to w/LE pattern 3. sustained isometrics 4. sustained isometric w/LE pattern 5. concentric reversals progreesed to w/LE patterns PT-OP-T Assessment and Plan Start: 06/21/20 08:02 Freq: Status: Active Protocol: Document 08/08/20 08:57 [facility] (Rec: 08/08/20 09:46 [facility] [id number]) Physical Therapy Assessment Goals posture Short Term Goal (STG) Pt will demonstrate improved posture as shown by 4/5 on VCT to dec strain on back. STG Duration 07/22/20 Sock Liner Goal (LTG) Pt will demonstrate good lifting mecahnics in order to dec strain on backa nd knee. LTG Duration 08/21/20 activities Sock Liner Goal (LTG) Pt will be able to do all typical activities (walking, squatting, housework) without LBP or knee pain. LTG Duration 08/21/20 strength Short Term Goal (STG) Pt will be indep with appropriate stretching and strengthening program STG Duration achieved progressing as needed Sock Liner Goal (LTG) Pt will have 5/5 LE strength to allow improved ability to walk and do typical activities without pain. LTG Duration 08/21/20 Assessment Summary Assessment Pt had improvement with mobility and abilityt o go through PNF patterns needed for mobility after manual treatment and neuro re edu. Pt did well with his 2 new exercises from last week Physical Therapy Plan Frequency and Duration Frequency of Treatment 1-2x/weeks Duration of Treatment 2 months Plan of Care Start Date 06/21/20 Plan of Care End Date 08/21/20 Next Visit Focus/Plan Next Note Type Treatment Note Next Visit Plan Work on lifting mechanics, and gait mechanics
--- NOTE | 2020-08-13 09:01 | PT.OTN ---
Current Diagnoses Pain in right knee (08/13/20) Low back pain (08/13/20) Abnormal posture (08/13/20) Weakness (08/13/20) Physical Therapy Treatment Note PT-OP-A Visit Information Start: 06/21/20 08:02 Freq: Status: Active Protocol: Document 08/13/20 08:16 [facility] (Rec: 08/13/20 09:00 [facility] [id number]) Out-Patient Physical Therapy Visit Information Visit Information Visit Type Treatment Note Visit Start Time 08:16 Visit Stop Time 08:56 Total Visit Minutes 40 Visit Number 14 Number of HYDROELECTRIC OPERATOR Visits 0 PT-OP-B Current Condition Start: 06/21/20 08:02 Freq: Status: Active Protocol: Document 06/21/20 08:15 [facility] (Rec: 06/21/20 10:20 [facility] [id number]) Current Condition History of Current Condition Onset Date mid Apr Current Complaints med R knee, LBP History of Current Condition Pt reports knee and back pain started aroundthe same timea nd they appear around the same time. Pt reports he was doing a lot of painting and climbing and moving ladders and also does knee ext & flex machines. He does those exercises often though feels like ladder was more likely culpret. Sometimes when stretching and doing exercises he feels the pain a little bit. Pt tries to do windshield wiper exercise but that is painful to LB. Pt had a fall in '98 and fell and hit in LB and conclusion was osteoporosis. Pt reprots the odd thing is when he has clicking in LB when he walks ( can walk2-3 miles) that he feels on L side with RLE movement. Sometimes it is every RLE step sometimes more intermittent. Pt reprots feels like it is ligaments popping over bone. Pt bikes and hikes and can bike 20 miles without knee pain. Knee used ot bother him when driving Prior Treatments and Tests Chiropractor but min relief - Xrays done and chiropractor doesn't think it is nerve pain Treatment Goals Patient/Caregiver Goals Stay active and determine whats cuasing pain and clicking, dec pain Personal Factors Other Personal Factors That May Effect Non-Hodgkin's Lymphoma, Therapy/Recovery history of LBP, gallbladder removal PT-OP-C Subjective Start: 06/21/20 08:02 Freq: Status: Active Protocol: Document 08/13/20 08:16 [facility] (Rec: 08/13/20 09:00 [facility] [id number]) OP-PT Subjective Patient Comments Patient Comments Pt reports he has been able to climb stairs without knee pain and has not been noticing his knee. He notices L SI region & L hip occasioncally giving discomfort. He climbed a ladder to put up xmas light and did some walks. PT-OP-D Balance Start: 06/21/20 08:02 Freq: Status: Active Protocol: Document 06/21/20 08:15 [facility] (Rec: 06/21/20 10:20 [facility] [id number]) Balance Tests Single Limb Standing Single Limb- Right 7 sec Single Limb- Left 11 sec PT-OP-F Manual Assessment Start: 06/21/20 08:02 Freq: Status: Active Protocol: Document 06/21/20 08:15 [facility] (Rec: 06/21/20 10:20 [facility] [id number]) Manual Assessments Soft Tissue Assessment Soft Tissue Mobility Assessment med joint line tenderness Joint Mobility Assessment Joint Mobility Assessment L iliac crest slightly higher; equal greater trochanters PT-OP-G Mobility & Gait Start: 06/21/20 08:02 Freq: Status: Active Protocol: Document 06/21/20 08:15 [facility] (Rec: 06/21/20 10:20 [facility] [id number]) OP Gait Assessment Comments Gait Comments dec push off B; dec foot clearance PT-OP-J Posture/Palpation/Skin Start: 06/21/20 08:02 Freq: Status: Active Protocol: Document 07/26/20 09:09 [facility] (Rec: 07/26/20 09:47 [facility] [id number]) Posture Evaluation Kerry Postural Classification System Kerry Postural Classifications Posterior/Posterior Vertebral Compression Test 3 Elbow Flexion Test 4 Lumbar Protective Mechanism Left AP 3 Lumbar Protective Mechanism Right AP 1 Lumbar Protective Mechanism Left PA 3 Lumbar Protective Mechanism Right PA 3 PT-OP-K Range of Motion Start: 06/21/20 08:02 Freq: Status: Active Protocol: Document 06/21/20 08:15 [facility] (Rec: 06/21/20 10:20 [facility] [id number]) Lumbar Spine Range of Motion Lumbar Spine Active Degrees Flexion 60 Extension 22 Rotation Left 64 Rotation Right 63 Lateral Flexion Left 18 Lateral Flexion Right 19 Comments L discomfort w/R SB Knee Goniometric Range of Motion Knee Right Flexion Active (degrees) 133 Extension Active (degrees) 4 Comments pain w/ext Left Flexion Active (degrees) 137 Extension Active (degrees) 2 PT-OP-L Special Tests Start: 06/21/20 08:02 Freq: Status: Active Protocol: Document 06/21/20 08:15 [facility] (Rec: 06/21/20 10:20 [facility] [id number]) Special Tests Knee Special Tests Straight Leg Raise Test Results mod HS tightness on L with min on R PT-OP-M Strength Start: 06/21/20 08:02 Freq: Status: Active Protocol: Document 07/26/20 09:09 [facility] (Rec: 07/26/20 09:47 [facility] [id number]) Hip Strength Hip Manual Muscle Testing Right Flexion (L2) 4+ Good+ Extension (S1) 4 Good Abduction 4+ Good+ Adduction 5 Normal External Rotation 5 Normal Internal Rotation 4+ Good+ Left Flexion (L2) 4+ Good+ Extension (S1) 4+ Good+ Abduction 5 Normal Adduction 5 Normal External Rotation 5 Normal Internal Rotation 5 Normal Comments can feel in LB with ext B Knee Strength Knee Manual Muscle Testing Right Flexion (S2) 5 Normal Extension (L3) 5 Normal Left Flexion (S2) 5 Normal Extension (L3) 5 Normal Ankle/Foot Strength Ankle and Foot Manual Muscle Testing Right Dorsiflexion (L4) 5 Normal Plantarflexion (S1) 5 Normal Left Dorsiflexion (L4) 5 Normal Plantarflexion (S1) 5 Normal Comments able to do 20 heel raises B PT-OP-Q Treatments Start: 06/21/20 08:02 Freq: Status: Active Protocol: Document 08/13/20 08:16 [facility] (Rec: 08/13/20 09:00 [facility] [id number]) Cardio Equipment Bicycle (Upright) Duration (Minutes) 5 Resistance 13 Seat Position 7 Manual Therapy Treatment Soft Tissue Mobilization iliacus Body Location L iliacus & abdomenal border Mobilization Type Sustained Pressure Intensity/Depth Moderate Comments w/L hip IR/ER ES Body Location L lumbar & sacral ES & QL Mobilization Type Rolling,Strumming Intensity/Depth Moderate Body Position Sidelying Comments w/post dep Joint Mobilizations innominate Joint L innominate Direction gapping & flex FM hip Joint L Direction inf FM Neuro Re-Education Treatment Other Activities core facilitiation Details LLE w/PNF pattern w/upper body chop PNF Details post dep Comments 1. rhythmic initiation 2. Combo of isotonics progressed to w/LE pattern 3. sustained isometrics 4. sustained isometric w/LE pattern PT-OP-T Assessment and Plan Start: 06/21/20 08:02 Freq: Status: Active Protocol: Document 08/13/20 08:16 [facility] (Rec: 08/13/20 09:00 [facility] [id number]) Physical Therapy Assessment Goals posture Short Term Goal (STG) Pt will demonstrate improved posture as shown by 4/5 on VCT to dec strain on back. STG Duration 07/22/20 Fdc Goal (LTG) Pt will demonstrate good lifting mecahnics in order to dec strain on backa nd knee. LTG Duration 08/21/20 activities Fdc Goal (LTG) Pt will be able to do all typical activities (walking, squatting, housework) without LBP or knee pain. LTG Duration 08/21/20 strength Short Term Goal (STG) Pt will be indep with appropriate stretching and strengthening program STG Duration achieved progressing as needed Supervisor Waterworks Goal (LTG) Pt will have 5/5 LE strength to allow improved ability to walk and do typical activities without pain. LTG Duration 08/21/20 Assessment Summary Assessment Pt had improved core activation after faciliation w /upper body chop movement. Improved activation into post depression today. Pt reported relief after innominate work Physical Therapy Plan Frequency and Duration Frequency of Treatment 1-2x/weeks Duration of Treatment 2 months Plan of Care Start Date 06/21/20 Plan of Care End Date 08/21/20 Next Visit Focus/Plan Next Note Type Progress Note Next Visit Plan Work on lifting mechanics, and gait mechanics & manual mobility
--- NOTE | 2020-08-15 11:18 | PT.OTN ---
Current Diagnoses Pain in right knee (08/15/20) Low back pain (08/15/20) Abnormal posture (08/15/20) Weakness (08/15/20) Physical Therapy Treatment Note PT-OP-A Visit Information Start: 06/21/20 08:02 Freq: Status: Active Protocol: Document 08/15/20 09:05 [facility] (Rec: 08/15/20 09:49 [facility] [id number]) Out-Patient Physical Therapy Visit Information Visit Information Visit Type Progress Note Visit Start Time 09:03 Visit Stop Time 09:45 Total Visit Minutes 42 Visit Number 15 Number of RUBBER WASHER Visits 0 PT-OP-B Current Condition Start: 06/21/20 08:02 Freq: Status: Active Protocol: Document 06/21/20 08:15 [facility] (Rec: 06/21/20 10:20 [facility] [id number]) Current Condition History of Current Condition Onset Date mid Apr Current Complaints med R knee, LBP History of Current Condition Pt reports knee and back pain started aroundthe same timea nd they appear around the same time. Pt reports he was doing a lot of painting and climbing and moving ladders and also does knee ext & flex machines. He does those exercises often though feels like ladder was more likely culpret. Sometimes when stretching and doing exercises he feels the pain a little bit. Pt tries to do windshield wiper exercise but that is painful to LB. Pt had a fall in '98 and fell and hit in LB and conclusion was osteoporosis. Pt reprots the odd thing is when he has clicking in LB when he walks ( can walk2-3 miles) that he feels on L side with RLE movement. Sometimes it is every RLE step sometimes more intermittent. Pt reprots feels like it is ligaments popping over bone. Pt bikes and hikes and can bike 20 miles without knee pain. Knee used ot bother him when driving Prior Treatments and Tests Chiropractor but min relief - Xrays done and chiropractor doesn't think it is nerve pain Treatment Goals Patient/Caregiver Goals Stay active and determine whats cuasing pain and clicking, dec pain Personal Factors Other Personal Factors That May Effect Non-Hodgkin's Lymphoma, Therapy/Recovery history of LBP, gallbladder removal PT-OP-C Subjective Start: 06/21/20 08:02 Freq: Status: Active Protocol: Document 08/15/20 09:05 [facility] (Rec: 08/15/20 09:49 [facility] [id number]) OP-PT Subjective Patient Comments Patient Comments Pt reprots today was a really good morning with no back pain . Pt did do a brisk walk yesterday. Patient Reported Progress Improving PT-OP-D Balance Start: 06/21/20 08:02 Freq: Status: Active Protocol: Document 06/21/20 08:15 [facility] (Rec: 06/21/20 10:20 [facility] [id number]) Balance Tests Single Limb Standing Single Limb- Right 7 sec Single Limb- Left 11 sec PT-OP-F Manual Assessment Start: 06/21/20 08:02 Freq: Status: Active Protocol: Document 06/21/20 08:15 [facility] (Rec: 06/21/20 10:20 [facility] [id number]) Manual Assessments Soft Tissue Assessment Soft Tissue Mobility Assessment med joint line tenderness Joint Mobility Assessment Joint Mobility Assessment L iliac crest slightly higher; equal greater trochanters PT-OP-G Mobility & Gait Start: 06/21/20 08:02 Freq: Status: Active Protocol: Document 06/21/20 08:15 [facility] (Rec: 06/21/20 10:20 [facility] [id number]) OP Gait Assessment Comments Gait Comments dec push off B; dec foot clearance PT-OP-J Posture/Palpation/Skin Start: 06/21/20 08:02 Freq: Status: Active Protocol: Document 08/15/20 09:05 [facility] (Rec: 08/15/20 09:49 [facility] [id number]) Posture Evaluation Kerry Postural Classification System Kerry Postural Classifications Vertical/Posterior Vertebral Compression Test 3 Elbow Flexion Test 4 Lumbar Protective Mechanism Left AP 3 Lumbar Protective Mechanism Right AP 3 Lumbar Protective Mechanism Left PA 3 Lumbar Protective Mechanism Right PA 4 PT-OP-K Range of Motion Start: 06/21/20 08:02 Freq: Status: Active Protocol: Document 06/21/20 08:15 [facility] (Rec: 06/21/20 10:20 [facility] [id number]) Lumbar Spine Range of Motion Lumbar Spine Active Degrees Flexion 60 Extension 22 Rotation Left 64 Rotation Right 63 Lateral Flexion Left 18 Lateral Flexion Right 19 Comments L discomfort w/R SB Knee Goniometric Range of Motion Knee Right Flexion Active (degrees) 133 Extension Active (degrees) 4 Comments pain w/ext Left Flexion Active (degrees) 137 Extension Active (degrees) 2 PT-OP-L Special Tests Start: 06/21/20 08:02 Freq: Status: Active Protocol: Document 06/21/20 08:15 [facility] (Rec: 06/21/20 10:20 [facility] [id number]) Special Tests Knee Special Tests Straight Leg Raise Test Results mod HS tightness on L with min on R PT-OP-M Strength Start: 06/21/20 08:02 Freq: Status: Active Protocol: Document 08/15/20 09:05 [facility] (Rec: 08/15/20 09:49 [facility] [id number]) Hip Strength Hip Manual Muscle Testing Right Flexion (L2) 5 Normal Extension (S1) 4+ Good+ Abduction 5 Normal Adduction 5 Normal External Rotation 5 Normal Internal Rotation 5 Normal Left Flexion (L2) 5 Normal Extension (S1) 4+ Good+ Abduction 5 Normal Adduction 5 Normal External Rotation 5 Normal Internal Rotation 5 Normal Comments can feel in LB with ext B & flex B Knee Strength Knee Manual Muscle Testing Right Flexion (S2) 5 Normal Extension (L3) 5 Normal Left Flexion (S2) 5 Normal Extension (L3) 5 Normal Ankle/Foot Strength Ankle and Foot Manual Muscle Testing Right Dorsiflexion (L4) 5 Normal Plantarflexion (S1) 5 Normal Left Dorsiflexion (L4) 5 Normal Plantarflexion (S1) 5 Normal Comments able to do 20 heel raises B PT-OP-Q Treatments Start: 06/21/20 08:02 Freq: Status: Active Protocol: Document 08/15/20 09:05 [facility] (Rec: 08/15/20 09:49 [facility] [id number]) Cardio Equipment Bicycle (Upright) Duration (Minutes) 5 Resistance 13 Seat Position 7 Therapeutic Exercises Standing Exercises squat Side bilateral Reps/Minutes 2x10 Comments over mat w/focus on knee position Therapeutic Activity Therapeutic Activity lifting Name lifting mechanics for heavy & light objects Manual Therapy Treatment Soft Tissue Mobilization QL Body Location lat sup iliac crest border Mobilization Type Rolling,Sustained Pressure Comments w/LTR L Self-Care/Home Management Treatment Education Other Education staying in comfortable range with exercises, edu re: its okay to go further if you are able to relax and body goes further, edu on importance of posture & discussed progress & plan for cont PT PT-OP-T Assessment and Plan Start: 06/21/20 08:02 Freq: Status: Active Protocol: Document 08/15/20 09:05 [facility] (Rec: 08/15/20 09:49 [facility] [id number]) Physical Therapy Assessment Goals posture Short Term Goal (STG) Pt will demonstrate improved posture as shown by 4/5 on VCT to dec strain on back. 08/15-3/5 STG Duration 08/31/20 Fdc Goal (LTG) Pt will demonstrate good lifting mecahnics in order to dec strain on backa nd knee. 08/15-able with cueing LTG Duration 09/15/20 activities Contract Technical Writer Goal (LTG) Pt will be able to do all typical activities (walking, squatting, housework) without LBP or knee pain. 08/15-able to do most-no knee pain but still occ back pain LTG Duration 09/15/20 strength Short Term Goal (STG) Pt will be indep with appropriate stretching and strengthening program STG Duration achieved progressing as needed Contract Technical Writer Goal (LTG) Pt will have 5/5 LE strength to allow improved ability to walk and do typical activities without pain. 08/15-all but hip ext LTG Duration 09/15/20 Physical Therapy Plan Frequency and Duration Frequency of Treatment 1-2x/weeks Duration of Treatment 1 month Plan of Care Start Date 08/15/20 Plan of Care End Date 09/15/20 Therapeutic Interventions Therapeutic Interventions Aquatic Therapy,Balance Training,Gait Training,Home Exercise Program,Joint Mobilizations,Manual Therapy, Neuromuscular Re-education, Patient/Caregiver Education, Self-Care/Home Management,Soft Tissue Mobilization,Taping, Therapeutic Activities, Therapeutic Exercises Modalities Cold Pack/Ice Massage,Hot Packs Next Visit Focus/Plan Next Note Type Treatment Note Next Visit Plan Work on lifting mechanics, and gait mechanics
--- NOTE | 2020-08-15 11:18 | PT.OPPOC ---
Physical, Occupational & Speech Therapy [facility] Current Diagnoses Pain in right knee (08/15/20) Low back pain (08/15/20) Abnormal posture (08/15/20) Weakness (08/15/20) Visit Care Team Role Provider Type Jose Cruz Short MD Attending Provider Physician Family Provider Primary Care Provider Referring Provider Specialty: Family Practice Address: [address] [place] [address], [facility] [place], [place], [facility] Email: Plan Of Care PT-OP-T Assessment and Plan Start: 06/21/20 08:02 Freq: Status: Active Protocol: Document 08/15/20 09:05 [facility] (Rec: 08/15/20 09:49 [facility] [id number]) Physical Therapy Assessment Goals posture Short Term Goal (STG) Pt will demonstrate improved posture as shown by 4/5 [address] VCT to dec strain on back. 08/15-3/5 STG Duration 08/31/20 Ged Preparation Teacher Goal (LTG) Pt will demonstrate good lifting mecahnics in order to dec strain on backa nd knee. 08/15-able with cueing LTG Duration 09/15/20 activities Usp Goal (LTG) Pt will be able to do all typical activities (walking, squatting, housework) without LBP or knee pain. 08/15-able to do most-no knee pain but still occ back pain LTG Duration 09/15/20 strength Short Term Goal (STG) Pt will be indep with appropriate stretching and strengthening program STG Duration achieved progressing as needed Usp Goal (LTG) Pt will have 5/5 LE strength to allow improved ability to walk and do typical activities without pain. 08/15-all but hip ext LTG Duration 09/15/20 Physical Therapy Plan Frequency and Duration Frequency of Treatment 1-2x/weeks Duration of Treatment 1 month Plan of Care Start Date 08/15/20 Plan of Care End Date 09/15/20 Therapeutic Interventions Therapeutic Interventions Aquatic Therapy,Balance Training,Gait Training,Home Exercise Program,Joint Mobilizations,Manual Therapy, Neuromuscular Re-education, Patient/Caregiver Education, Self-Care/Home Management,Soft Tissue Mobilization,Taping, Therapeutic Activities, Therapeutic Exercises Modalities Cold Pack/Ice Massage,Hot Packs Next Visit Focus/Plan Next Note Type Treatment Note Next Visit Plan Work on lifting mechanics, and gait mechanics Plan of Care Dates Plan of Care Start Date 08/15/20 Plan of Care End Date 09/15/20 Electronically Signed by: Liz Knight, PT 08/15/20 [id number] Please Sign and Return: I have reviewed this Plan of Care and certify that the skilled therapy services above are required to meet the patient?s needs. Physician Signature Date Printed Name and Credentials Clinical Instructor Signature Printed Name and Credentials
--- NOTE | 2020-08-22 12:11 | PT.OTN ---
Current Diagnoses Pain in right knee (08/22/20) Low back pain (08/22/20) Abnormal posture (08/22/20) Weakness (08/22/20) Physical Therapy Treatment Note PT-OP-A Visit Information Start: 06/21/20 08:02 Freq: Status: Active Protocol: Document 08/22/20 10:36 [facility] (Rec: 08/22/20 12:11 [facility] [id number]) Out-Patient Physical Therapy Visit Information Visit Information Visit Type Treatment Note Visit Start Time 10:36 Visit Stop Time 11:15 Total Visit Minutes 39 Visit Number 16 Number of QUALITY CONTROL REPRESENTATIVE Visits 0 PT-OP-B Current Condition Start: 06/21/20 08:02 Freq: Status: Active Protocol: Document 06/21/20 08:15 [facility] (Rec: 06/21/20 10:20 [facility] [id number]) Current Condition History of Current Condition Onset Date mid Apr Current Complaints med R knee, LBP History of Current Condition Pt reports knee and back pain started aroundthe same timea nd they appear around the same time. Pt reports he was doing a lot of painting and climbing and moving ladders and also does knee ext & flex machines. He does those exercises often though feels like ladder was more likely culpret. Sometimes when stretching and doing exercises he feels the pain a little bit. Pt tries to do windshield wiper exercise but that is painful to LB. Pt had a fall in '98 and fell and hit in LB and conclusion was osteoporosis. Pt reprots the odd thing is when he has clicking in LB when he walks ( can walk2-3 miles) that he feels on L side with RLE movement. Sometimes it is every RLE step sometimes more intermittent. Pt reprots feels like it is ligaments popping over bone. Pt bikes and hikes and can bike 20 miles without knee pain. Knee used ot bother him when driving Prior Treatments and Tests Chiropractor but min relief - Xrays done and chiropractor doesn't think it is nerve pain Treatment Goals Patient/Caregiver Goals Stay active and determine whats cuasing pain and clicking, dec pain Personal Factors Other Personal Factors That May Effect Non-Hodgkin's Lymphoma, Therapy/Recovery history of LBP, gallbladder removal PT-OP-C Subjective Start: 06/21/20 08:02 Freq: Status: Active Protocol: Document 08/22/20 10:36 [facility] (Rec: 08/22/20 12:11 [facility] [id number]) OP-PT Subjective Patient Comments Patient Comments Pain has been good generally. Today is not much there but a little on R side. PT-OP-D Balance Start: 06/21/20 08:02 Freq: Status: Active Protocol: Document 06/21/20 08:15 [facility] (Rec: 06/21/20 10:20 [facility] [id number]) Balance Tests Single Limb Standing Single Limb- Right 7 sec Single Limb- Left 11 sec PT-OP-F Manual Assessment Start: 06/21/20 08:02 Freq: Status: Active Protocol: Document 06/21/20 08:15 [facility] (Rec: 06/21/20 10:20 [facility] [id number]) Manual Assessments Soft Tissue Assessment Soft Tissue Mobility Assessment med joint line tenderness Joint Mobility Assessment Joint Mobility Assessment L iliac crest slightly higher; equal greater trochanters PT-OP-G Mobility & Gait Start: 06/21/20 08:02 Freq: Status: Active Protocol: Document 06/21/20 08:15 [facility] (Rec: 06/21/20 10:20 [facility] [id number]) OP Gait Assessment Comments Gait Comments dec push off B; dec foot clearance PT-OP-J Posture/Palpation/Skin Start: 06/21/20 08:02 Freq: Status: Active Protocol: Document 08/15/20 09:05 [facility] (Rec: 08/15/20 09:49 [facility] [id number]) Posture Evaluation Kerry Postural Classification System Kerry Postural Classifications Vertical/Posterior Vertebral Compression Test 3 Elbow Flexion Test 4 Lumbar Protective Mechanism Left AP 3 Lumbar Protective Mechanism Right AP 3 Lumbar Protective Mechanism Left PA 3 Lumbar Protective Mechanism Right PA 4 PT-OP-K Range of Motion Start: 06/21/20 08:02 Freq: Status: Active Protocol: Document 06/21/20 08:15 [facility] (Rec: 06/21/20 10:20 [facility] [id number]) Lumbar Spine Range of Motion Lumbar Spine Active Degrees Flexion 60 Extension 22 Rotation Left 64 Rotation Right 63 Lateral Flexion Left 18 Lateral Flexion Right 19 Comments L discomfort w/R SB Knee Goniometric Range of Motion Knee Right Flexion Active (degrees) 133 Extension Active (degrees) 4 Comments pain w/ext Left Flexion Active (degrees) 137 Extension Active (degrees) 2 PT-OP-L Special Tests Start: 06/21/20 08:02 Freq: Status: Active Protocol: Document 06/21/20 08:15 [facility] (Rec: 06/21/20 10:20 [facility] [id number]) Special Tests Knee Special Tests Straight Leg Raise Test Results mod HS tightness on L with min on R PT-OP-M Strength Start: 06/21/20 08:02 Freq: Status: Active Protocol: Document 08/15/20 09:05 [facility] (Rec: 08/15/20 09:49 [facility] [id number]) Hip Strength Hip Manual Muscle Testing Right Flexion (L2) 5 Normal Extension (S1) 4+ Good+ Abduction 5 Normal Adduction 5 Normal External Rotation 5 Normal Internal Rotation 5 Normal Left Flexion (L2) 5 Normal Extension (S1) 4+ Good+ Abduction 5 Normal Adduction 5 Normal External Rotation 5 Normal Internal Rotation 5 Normal Comments can feel in LB with ext B & flex B Knee Strength Knee Manual Muscle Testing Right Flexion (S2) 5 Normal Extension (L3) 5 Normal Left Flexion (S2) 5 Normal Extension (L3) 5 Normal Ankle/Foot Strength Ankle and Foot Manual Muscle Testing Right Dorsiflexion (L4) 5 Normal Plantarflexion (S1) 5 Normal Left Dorsiflexion (L4) 5 Normal Plantarflexion (S1) 5 Normal Comments able to do 20 heel raises B PT-OP-Q Treatments Start: 06/21/20 08:02 Freq: Status: Active Protocol: Document 08/22/20 10:36 [facility] (Rec: 08/22/20 12:11 [facility] [id number]) Cardio Equipment Bicycle (Upright) Duration (Minutes) 7 Resistance 13 Seat Position 7 Therapeutic Exercises Standing Exercises SLS Standing Exercise Name w/no lat lean Side bilateral Comments in mirror Therapeutic Activity Therapeutic Activity posture Name in mirror focus on upright position & avoid lat lean R Gait Training Gait Activity wt shifts Description in mirror w/focus on no lat lean gait Comments 1. working on posture & push off in mirror 2. resisted gait w/dowel Manual Therapy Treatment Soft Tissue Mobilization QL Body Location lat sup iliac crest border Mobilization Type Rolling,Sustained Pressure Comments B s/l Joint Mobilizations sacrum Joint caudal Direction s/l innominate Joint R Direction gapping & ER FM PT-OP-T Assessment and Plan Start: 06/21/20 08:02 Freq: Status: Active Protocol: Document 08/22/20 10:36 [facility] (Rec: 08/22/20 12:11 [facility] [id number]) Physical Therapy Assessment Goals posture Short Term Goal (STG) Pt will demonstrate improved posture as shown by 4/5 on VCT to dec strain on back. 08/15-3/5 STG Duration 08/31/20 [facility] Goal (LTG) Pt will demonstrate good lifting mecahnics in order to dec strain on backa nd knee. 08/15-able with cueing LTG Duration 09/15/20 activities [facility] Goal (LTG) Pt will be able to do all typical activities (walking, squatting, housework) without LBP or knee pain. 08/15-able to do most-no knee pain but still occ back pain LTG Duration 09/15/20 strength Short Term Goal (STG) Pt will be indep with appropriate stretching and strengthening program STG Duration achieved progressing as needed Pricing Clerk Goal (LTG) Pt will have 5/5 LE strength to allow improved ability to walk and do typical activities without pain. 08/15-all but hip ext LTG Duration 09/15/20 Assessment Summary Assessment Pt improved with gait when cueing for better posture and improved push off. He does have some dec mobility of innominates which may contribute to pain but improves with manual treamtnet Physical Therapy Plan Frequency and Duration Frequency of Treatment 1-2x/weeks Duration of Treatment 1 month Plan of Care Start Date 08/15/20 Plan of Care End Date 09/15/20 Next Visit Focus/Plan Next Note Type Treatment Note Next Visit Plan Work on lifting mechanics, and gait mechanics, prep for dc
--- NOTE | 2020-08-29 10:46 | PT.OTN ---
Current Diagnoses Pain in right knee (08/29/20) Low back pain (08/29/20) Abnormal posture (08/29/20) Weakness (08/29/20) Physical Therapy Treatment Note PT-OP-A Visit Information Start: 06/21/20 08:02 Freq: Status: Active Protocol: Document 08/29/20 09:52 [facility] (Rec: 08/29/20 10:46 [facility] [id number]) Out-Patient Physical Therapy Visit Information Visit Information Visit Type Treatment Note Visit Start Time 09:49 Visit Stop Time 10:30 Total Visit Minutes 41 Visit Number 17 Number of DEBT COLLECTOR Visits 0 PT-OP-B Current Condition Start: 06/21/20 08:02 Freq: Status: Active Protocol: Document 06/21/20 08:15 [facility] (Rec: 06/21/20 10:20 [facility] [id number]) Current Condition History of Current Condition Onset Date mid Apr Current Complaints med R knee, LBP History of Current Condition Pt reports knee and back pain started aroundthe same timea nd they appear around the same time. Pt reports he was doing a lot of painting and climbing and moving ladders and also does knee ext & flex machines. He does those exercises often though feels like ladder was more likely culpret. Sometimes when stretching and doing exercises he feels the pain a little bit. Pt tries to do windshield wiper exercise but that is painful to LB. Pt had a fall in '98 and fell and hit in LB and conclusion was osteoporosis. Pt reprots the odd thing is when he has clicking in LB when he walks ( can walk2-3 miles) that he feels on L side with RLE movement. Sometimes it is every RLE step sometimes more intermittent. Pt reprots feels like it is ligaments popping over bone. Pt bikes and hikes and can bike 20 miles without knee pain. Knee used ot bother him when driving Prior Treatments and Tests Chiropractor but min relief - Xrays done and chiropractor doesn't think it is nerve pain Treatment Goals Patient/Caregiver Goals Stay active and determine whats cuasing pain and clicking, dec pain Personal Factors Other Personal Factors That May Effect Non-Hodgkin's Lymphoma, Therapy/Recovery history of LBP, gallbladder removal PT-OP-C Subjective Start: 06/21/20 08:02 Freq: Status: Active Protocol: Document 08/29/20 09:52 [facility] (Rec: 08/29/20 10:46 [facility] [id number]) OP-PT Subjective Patient Comments Patient Comments Pt feels like he is ready for DC Patient Reported Progress Improving PT-OP-D Balance Start: 06/21/20 08:02 Freq: Status: Active Protocol: Document 06/21/20 08:15 [facility] (Rec: 06/21/20 10:20 [facility] [id number]) Balance Tests Single Limb Standing Single Limb- Right 7 sec Single Limb- Left 11 sec PT-OP-F Manual Assessment Start: 06/21/20 08:02 Freq: Status: Active Protocol: Document 06/21/20 08:15 [facility] (Rec: 06/21/20 10:20 [facility] [id number]) Manual Assessments Soft Tissue Assessment Soft Tissue Mobility Assessment med joint line tenderness Joint Mobility Assessment Joint Mobility Assessment L iliac crest slightly higher; equal greater trochanters PT-OP-G Mobility & Gait Start: 06/21/20 08:02 Freq: Status: Active Protocol: Document 06/21/20 08:15 [facility] (Rec: 06/21/20 10:20 [facility] [id number]) OP Gait Assessment Comments Gait Comments dec push off B; dec foot clearance PT-OP-J Posture/Palpation/Skin Start: 06/21/20 08:02 Freq: Status: Active Protocol: Document 08/29/20 09:52 [facility] (Rec: 08/29/20 10:46 [facility] [id number]) Posture Evaluation Kerry Postural Classification System Vertebral Compression Test 3 Lumbar Protective Mechanism Left AP 4 Lumbar Protective Mechanism Right AP 3 Lumbar Protective Mechanism Left PA 4 Lumbar Protective Mechanism Right PA 4 PT-OP-K Range of Motion Start: 06/21/20 08:02 Freq: Status: Active Protocol: Document 06/21/20 08:15 [facility] (Rec: 06/21/20 10:20 [facility] [id number]) Lumbar Spine Range of Motion Lumbar Spine Active Degrees Flexion 60 Extension 22 Rotation Left 64 Rotation Right 63 Lateral Flexion Left 18 Lateral Flexion Right 19 Comments L discomfort w/R SB Knee Goniometric Range of Motion Knee Right Flexion Active (degrees) 133 Extension Active (degrees) 4 Comments pain w/ext Left Flexion Active (degrees) 137 Extension Active (degrees) 2 PT-OP-L Special Tests Start: 06/21/20 08:02 Freq: Status: Active Protocol: Document 06/21/20 08:15 [facility] (Rec: 06/21/20 10:20 [facility] [id number]) Special Tests Knee Special Tests Straight Leg Raise Test Results mod HS tightness on L with min on R PT-OP-M Strength Start: 06/21/20 08:02 Freq: Status: Active Protocol: Document 08/15/20 09:05 [facility] (Rec: 08/15/20 09:49 [facility] [id number]) Hip Strength Hip Manual Muscle Testing Right Flexion (L2) 5 Normal Extension (S1) 4+ Good+ Abduction 5 Normal Adduction 5 Normal External Rotation 5 Normal Internal Rotation 5 Normal Left Flexion (L2) 5 Normal Extension (S1) 4+ Good+ Abduction 5 Normal Adduction 5 Normal External Rotation 5 Normal Internal Rotation 5 Normal Comments can feel in LB with ext B & flex B Knee Strength Knee Manual Muscle Testing Right Flexion (S2) 5 Normal Extension (L3) 5 Normal Left Flexion (S2) 5 Normal Extension (L3) 5 Normal Ankle/Foot Strength Ankle and Foot Manual Muscle Testing Right Dorsiflexion (L4) 5 Normal Plantarflexion (S1) 5 Normal Left Dorsiflexion (L4) 5 Normal Plantarflexion (S1) 5 Normal Comments able to do 20 heel raises B PT-OP-Q Treatments Start: 06/21/20 08:02 Freq: Status: Active Protocol: Document 08/29/20 09:52 [facility] (Rec: 08/29/20 10:46 [facility] [id number]) Cardio Equipment Recumbent Bicycle Duration (Minutes) 5 Resistance 12 Seat Position 8 Therapeutic Exercises Supine Exercises TA Supine Exercise Name scisoor bent knee Side bilateral Reps/Minutes 10 flex Supine Exercise Name isometric double leg flex Side bilateral Reps/Minutes 15 sec eachx2 SLR Supine Exercise Name Straight Leg Raise Side bilateral Reps/Minutes 5 Comments Cues for TA activation LTR Supine Exercise Name focus on segmental push down for core activiation Side bilateral Reps/Minutes 8 Comments greater stretch felt left stretch Supine Exercise Name DKTC Sidelying Exercises Open Book Side bilateral Reps/Minutes 8 Standing Exercises gait at wall Standing Exercise Name for post depression facilitation Side bilateral Reps/Minutes alt w/ 3 sec hold x6 QL stretch Standing Exercise Name adjusted to seated Side left Reps/Minutes 30 sec Comments more comfortable Manual Therapy Treatment Soft Tissue Mobilization QL Body Location lat sup iliac crest border & ES & QL Mobilization Type Rolling,Sustained Pressure Comments B s/l w/ant elevaiotn/post dep Self-Care/Home Management Treatment Education Other Education review of importance of posture & cont HEP, does not need to do every exercise every day but at least a few times a week PT-OP-T Assessment and Plan Start: 06/21/20 08:02 Freq: Status: Active Protocol: Document 08/29/20 09:52 [facility] (Rec: 08/29/20 10:46 [facility] [id number]) Physical Therapy Assessment Goals posture Short Term Goal (STG) Pt will demonstrate improved posture as shown by 4/5 on VCT to dec strain on back. 08/15-3/5 STG Duration imrpoved overall to 3/5 Dairy Management Specialist Goal (LTG) Pt will demonstrate good lifting mecahnics in order to dec strain on backa nd knee. 08/15-able with cueing LTG Duration achieved activities Dairy Management Specialist Goal (LTG) Pt will be able to do all typical activities (walking, squatting, housework) without LBP or knee pain. 08/15-able to do most-no knee pain but still occ back pain LTG Duration achieved strength Short Term Goal (STG) Pt will be indep with appropriate stretching and strengthening program STG Duration achieved progressing as needed Dairy Management Specialist Goal (LTG) Pt will have 5/5 LE strength to allow improved ability to walk and do typical activities without pain. 08/15-all but hip ext LTG Duration achieved ext hip ext which was not tested again today Assessment Summary Assessment Pt has made excellent progress and is not having much difficulty w/R knee pain or back pain recently. He is able to do all typical activities including walks without issue. He has imrpoved with strength and motion and reviewed HEP for continuence today and pt indep with HEP Physical Therapy Plan Discharge Physical Therapy Discharge Reasons Goals Met
== END 2020-09-05 14:07 | disposition home or self-care (01) ==
LOC: PHYS 09:45
PROVIDERS: Family Provider Family Medicine; PCP Family Medicine; Referring Provider Family Medicine; Visit Provider Family Medicine
DX: M54.5 Low back pain (principal); M25.561 Pain in right knee; R53.1 Weakness; R29.3 Abnormal posture
CPT/HCPCS: 97110; 97112; 97116; 97140; 97161; 97530; 97535

== ENCOUNTER → 2020-12-12 14:06 | Outpatient (CLI) | payer MEDICARE, OTHER, SELFPAY ==
--- NOTE | 2020-12-12 14:16 | DI.CT.S_ITS ---
PROCEDURE: CT KIDNEY URETER BLADDER (KUB) INDICATIONS: Gross hematuria TECHNIQUE: Noncontrast 5 mm thick sections acquired from the diaphragms to the symphysis. 5 mm thick coronal and sagittal reformats were then performed. For radiation dose reduction, the following was used: automated exposure control, adjustment of mA and/or kV according to patient size. COMPARISON: [facility], CT, CT CHEST ABD PEL W CON, 09/13/2019, 10:05. FINDINGS: Image quality: Excellent. Lung bases: Linear scarring at right lung base is seen. Bibasilar dependent atelectasis is also noted.. Heart size is normal. Urinary system: Both kidneys are normal in size. No kidney stones. No hydronephrosis or perinephric fat stranding. Both ureters appear non-dilated throughout their expected courses. Markedly distended urinary bladder is seen with mild diffuse bladder wall thickening, no definite discrete bladder wall mass is seen. No calcified bladder stone. Enlarged prostate gland with parenchymal calcification is noted. There is significant mass effect on floor of urinary bladder. Other solid organs: Liver is normal in size. Stable 1.9 x 1.7 cm lobulated cyst in inferior right hepatic lobe is again seen unchanged from prior studies series 2, image 23. Gallbladder is surgically absent.. Pancreas is normal in contours. Spleen is normal in size. No adrenal nodules. Peritoneum and bowel: Unenhanced bowel loops demonstrate normal wall thickness and caliber. No free fluid or air. Nodes and vessels: No retroperitoneal adenopathy by size criteria. Irregular mesenteric thickening is again seen in mid abdomen not significantly changed from prior study. Previously described 1.7 cm nodule in the left abdominal mesentery is less well seen on the current study due to lack of contrast opacification, however is grossly unchanged in size and appearance series 2, image 36. Aorta and inferior vena cava are normal in caliber. Dense atherosclerotic calcifications in abdominal aorta is again seen. Abdominal wall: No ventral hernias. Pelvis: No free pelvic fluid. No inguinal hernias or adenopathy. Bones: No suspicious bony lesions. No vertebral body compression fractures. 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 IMPRESSION: 1. Markedly enlarged prostate gland with significant mass effect on floor of urinary bladder. Mild diffuse bladder wall thickening. No calcified bladder stone. No discrete bladder wall mass. 2. No renal stone or hydronephrosis. Normal appearing bilateral ureters. 3. Stable appearing mesenteric thickening in left mid abdomen with ill-defined left abdominal soft tissue nodule better seen on previous contrast enhanced study, however appears grossly unchanged. 4. Stable cyst in right hepatic lobe. Dictated by: Terry Antonio M.D. on 12/12/2020 at 16:16 Approved by: Terry Antonio M.D. on 12/12/2020 at 16:24
== END ==
PROVIDERS: Family Provider Family Medicine; PCP Family Medicine; Referring Provider Family Medicine; Visit Provider Family Medicine
DX: R31.0 Gross hematuria (principal)
CPT/HCPCS: 74176

== ENCOUNTER → 2021-02-27 12:38 | Outpatient (CLI) | payer MEDICARE, OTHER, SELFPAY ==
--- NOTE | 2021-02-27 | DI.RAD.S_ITS ---
PROCEDURE: XR CHEST 2V INDICATIONS: COVID-19/FEVER TECHNIQUE: 2 views of the chest were acquired. COMPARISON: [facility], CR, XR CHEST 2V, 10/18/2019, 10:37. FINDINGS: Surgical changes and devices: None. Lungs and pleura: Slight appearance of streaky left upper lobe opacity. Mediastinum: Mediastinal contours are normal. Heart size is normal. Bones and chest wall: No suspicious bony abnormalities. Soft tissues appear unremarkable. IMPRESSION: Slight streaky left upper lobe opacity possibly related to developing pneumonia. Dictated by: Jasmin Simth M.D. on 02/27/2021 at 13:27 Approved by: Jasmin Smith M.D. on 02/27/2021 at 13:28
[2021-02-27 14:18] LABS: Add Manual Diff / Slide Review NO; Basophils Absolute Auto 0 /uL (0-100); Basophils Percent Auto 0.3 % (0-2); Eosinophils Absolute Auto 0 /uL (0-450); Eosinophils Percent Auto 0.6 % (2-4); Hematocrit 41.4 % (41-53); Hemoglobin 13.9 g/dL (13.5-17.5); Lymphocytes Absolute Auto 700 /uL (1100-4500); Lymphocytes Percent Auto 13.4 % (25-40); Mean Corpuscular HGB Conc 33.6 % (30-36); Mean Corpuscular Hemoglobin 28.1 PG (26-34); Mean Corpuscular Volume 83.8 fL (80-100); Monocytes Absolute Auto 300 /uL (0-900); Monocytes Percent Auto 6.2 % (3-14); Neutrophils Absolute Auto 4200 /uL (1500-7000); Neutrophils Percent Auto 79.5 % (50-75); Platelet Count 294 X10^3/uL (150-400); Red Blood Cell Count 4.95 X10^6/uL (4.5-5.9); Red Cell Distribution Width 13.9 % (11.6-14.8); White Blood Cell Count 5.2 X10^3/uL (4.5-11.0)
== END ==
PROVIDERS: Family Provider Family Medicine; PCP Family Medicine; Referring Provider Family Medicine; Visit Provider Family Medicine
DX: U07.1 COVID-19 (principal); R50.9 Fever, unspecified
CPT/HCPCS: 36415; 71046; 85025

== ENCOUNTER 2021-03-10 13:50 | Emergency (ER) | payer MEDICARE, OTHER, SELFPAY ==
[2021-03-10 14:03] VITALS: BP 163/81; PULSE 59; RESP 18; TEMP 36.3; O2SAT 98; BMI 24.3
--- NOTE | 2021-03-10 14:36 | DI.RAD.S_ITS ---
PROCEDURE: XR ACUTE ABDOMEN SERIES INDICATIONS: constipation / abd cramping TECHNIQUE: One view chest and two views of the abdomen were acquired. COMPARISON: [facility], CT, CT CHEST ABD PEL W CON, 09/13/2019, 10:05. [facility], CT, CT KIDNEY URETER BLADDER (KUB), 12/12/2020, 14:11. [facility], CR, XR CHEST 2V, 02/27/2021, 13:00. FINDINGS: Surgical changes and devices: Cholecystectomy clips are seen. Chest: Generalized interstitial prominence can be seen within the lungs. Heart size is normal. No pleural effusions. No pneumoperitoneum. Abdomen: Bowel gas pattern is normal. There is a moderate amount of stool seen within the proximal colon. No suspicious calcifications. Visualized solid organ contours appear normal. Bones: No suspicious bony lesions. Age-appropriate bony degenerative changes are seen. Mild dextroconvex scoliotic curvature is seen. IMPRESSION: A moderate amount of stool is seen within the proximal colon, which may be related to the given clinical history of constipation. The bowel gas pattern is nonobstructive. Generalized interstitial prominence can be seen within the lungs. Differential diagnosis includes artifact, pulmonary edema, and atypical infection. Postoperative and degenerative changes are seen. Dictated by: Roni Pal M.D. on 03/10/2021 at 13:53 Approved by: Roni Pal M.D. on 03/10/2021 at 13:54
--- NOTE | 2021-03-10 14:38 | PC.NURSE ---
Pt noted to have mask off in the waiting area. Asked to keep mask on at all times. Pt put mask back on.
--- NOTE | 2021-03-10 14:49 | ED.ABDPAIN ---
HPI - Abdominal Pain General Chief Complaint: Abdominal Pain Stated Complaint: Severe stomach cramps Time Seen by Provider: 03/10/21 14:32 Source: patient Mode of arrival: Family Vehicle Limitations: no limitations History of Present Illness HPI narrative: 80-year-old male with this year he hypertension BPH and low-grade B-cell lymphoma presenting with left upper quadrant pain. He apparently had a CT in October of 2017 which did show a 15 cm left upper quadrant mass. He says he started having pain 5 hours prior to arrival. He denies any nausea or vomiting. Last night he thought he was constipated he took prunes and other laxatives today. He has not had a bowel movement yet. He denies any fever or chills. No chest pain or shortness of breath. Patient also states that he had COVID at the beginning of February. He was fully vaccinated in November. He was put on steroids to help with his COVID symptoms but he is no longer taking them. Related Data Home Medications Medication Instructions Recorded Confirmed doxazosin 8 mg tablet (Cardura) 8 mg PO QDAY #0 12/24/12 12/08/20 candesartan 4 mg tablet (Atacand) 4 mg PO QDAY #0 10/22/17 12/08/20 lansoprazole 30 mg capsule,delayed 30 mg PO QDAY #0 10/22/17 12/08/20 release B.breve-L.acid-L.rham-S. 1 tab PO DAILY 01/19/18 12/08/20 thermophilus 3 billion cell chewable tablet (Probiotic) melatonin 1 mg tablet 1 mg PO BEDTIME PRN MDD 1 01/19/18 12/08/20 multivitamin 1 tab PO DAILY 01/19/18 12/08/20 Previous Rx's Medication Instructions Recorded hydrocodone 5 mg-acetaminophen 325 1 tab PO Q6H PRN #10 tab 03/10/21 mg tablet Allergies Allergy/AdvReac Type Severity Reaction Status Date / Time No Known Drug Allergies Allergy Verified 03/10/21 14:03 Review of Systems Review of Systems Narrative: GENERAL: Denies chills, fatigue, malaise, fever, sweats, travel HEENT: Denies sinus pain, ear pain, sore throat, difficulty swallowing, neck pain RESPIRATORY: Denies dyspnea, cough, wheezing, hemoptysis, sputum. CARDIOVASCULAR: Denies chest pain, palpitations, orthopnea, edema GASTROINTESTINAL: See HPI : Denies dysuria, frequency, incontinence, hematuria, urinary retention, flank pain. MUSCULOSKELETAL: Denies weakness, joint pain, or bony pain SKIN: No rash, no erythema, no pruritus NEUROLOGIC: Denies weakness, dizziness, headache, numbness, change in speech, confusion PSYCHIATRIC: No concerning psychosocial issues. 12 point review of systems is negative except for those stated above and HPI Patient History Medical History Bronchitis Conjunctivitis COVID-19 GERD (gastroesophageal reflux disease) History of deviated nasal septum Hypertension Surgical History Hx laparoscopic cholecystectomy Social History household members: spouse Smoking Status: Never smoker Smoking Status: Never smoker alcohol intake frequency: a few times a week Substance Use Type: does not use Exam Initial Vital Signs Initial Vital Signs: Vital Signs Temperature 97.3 F L 03/10/21 14:03 Pulse Rate 59 L 03/10/21 14:03 Respiratory Rate 18 03/10/21 14:03 Blood Pressure 163/81 H 03/10/21 14:03 Pulse Oximetry 98 03/10/21 14:03 GENERAL: Alert 72-year-old male appears in mild discomfort and in [no acute] distress. HEENT: Head atraumatic,EOMI, pupils reactive, face symmetric, [moist] mucous membranes CARDIOVASCULAR: Regular rate and rhythm without murmurs, rubs or gallops. RESPIRATORY: Breath sounds equal bilaterally, no wheezes rales or rhonchi. ABDOMEN: Soft, tender left upper quadrant EXTREMITIES: Normal range of motion, no clubbing or edema. Neurovascularly intact NEUROLOGICAL: Alert and oriented x4.Normal gait and speech. SKIN: Warm, dry, no laceration, no petechiae, no rashes or lesions. Course Orders Ordered: ED Orders 03/10/21 14:36 XR acute abdomen series Stat 03/10/21 15:01 CT abdomen pelvis w con Stat 03/10/21 15:10 Complete Blood Count AUTO DIFF Stat Comprehensive Metabolic Panel Stat Lipase Stat Discontinued Medications Hydrocodone Bitart/Acetaminophen (Hydrocodone/Acet 5/325 Tablet) 1 tab PO NOW ONE Stop: 03/10/21 18:10 Last Admin: 03/10/21 18:18 Dose: 1 tab Documented by: KANDI Hydrocodone Bitart/Acetaminophen (Hydrocodone/Acet 5/325 Prepack) 1 bottle MISC SEEINSTR ONE Stop: 03/10/21 18:10 Last Admin: 03/10/21 18:18 Dose: 1 bottle Documented by: KANDI Hydromorphone HCl (Hydromorphone 0.5 Mg Inj) 0.5 mg IV NOW ONE Stop: 03/10/21 15:47 Last Admin: 03/10/21 16:01 Dose: 0.5 mg Documented by: TONGFF Sodium Chloride (Normal Saline 0.9%) 1,000 mls @ 1,000 mls/hr IV BOLUS ONE Stop: 03/10/21 16:11 Last Infusion: 03/10/21 17:05 Dose: 0 mls/hr Documented by: Admin: 03/10/21 15:16 Dose: 1,000 mls/hr Documented by: KANDI Ketorolac Tromethamine (Ketorolac 30 Mg/Ml Vial) 15 mg IV NOW ONE Stop: 03/10/21 15:02 Last Admin: 03/10/21 15:16 Dose: 15 mg Documented by: KANDI Vital Signs Vital signs: Vital Signs - 8 hr 03/10/21 14:03 03/10/21 16:34 03/10/21 19:00 Temperature 97.3 F L Pulse Rate 59 L 75 68 Respiratory Rate 18 14 Blood Pressure 163/81 H 167/84 H 170/70 H Pulse Oximetry 98 96 99 MDM - Abdominal Pain Lab Data Result diagrams: 03/10/21 15:10 03/10/21 15:10 Labs: Lab Results 03/10/21 03/10/21 Range/Units 15:10 15:10 WBC 16.8 H (4.5-11.0) X10^3/uL RBC 4.87 (4.5-5.9) X10^6/uL Hgb 13.3 L (13.5-17.5) g/dL Hct 40.8 L (41-53) % MCV 83.6 (80-100) fL MCH 27.4 (26-34) PG MCHC 32.8 (30-36) % RDW 13.8 (11.6-14.8) % Plt Count 435 H (150-400) X10^3/uL Neut % (Auto) Not Reportable Lymph % (Auto) Not Reportable [place] % (Auto) Not Reportable Eos % (Auto) Not Reportable Baso % (Auto) Not Reportable Lymph # (Auto) Not Reportable [place] # (Auto) Not Reportable Baso # (Auto) Not Reportable Total Counted 100 Seg Neutrophils % 78.0 H (38-70) % Band Neutrophils % 3.0 (3-7) % Lymphocytes % (Manual) 3.0 L (25-45) % Monocytes % (Manual) 15.0 H (2-11) % Myelocytes % 1.0 H (-0) % Neutrophils # (Manual) 30879 H (0798-7817) /uL RBC Morphology Normal morphology Sodium 132 L (137-145) mmol/L Potassium 4.0 (3.4-5.1) mmol/L Chloride 102 (98-107) mmol/L Carbon Dioxide 25 (22-32) mmol/L BUN 32 H (9-20) mg/dL Creatinine 0.82 (0.66-1.25) mg/dL Estimated GFR > 60.0 (>60) mL/min BUN/Creatinine Ratio 39.0 H (6-22) Glucose 124 H (80-110) mg/dL Calcium 8.6 (8.4-10.2) mg/dL Total Bilirubin 0.8 (0.2-1.3) mg/dL AST 39 (17-59) IU/L ALT 119 H (<50) IU/L Alkaline Phosphatase 102 (38-126) U/L Total Protein 6.1 L (6.3-8.2) g/dL Albumin 3.3 L (3.5-5.0) g/dL Globulin 2.8 (1.7-4.1) g/dL Albumin/Globulin Ratio 1.2 (1.0-2.8) Lipase 114 (23-300) U/L Point of care testing: Urine Dip Bedside Urine Glucose Negative Bedside Urine Bilirubin - Negative Bedside Urine Ketone - Negative Urine Specific [place] 1.030 Bedside Urine Occult Blood - Negative Bedside Urine pH 6.0 Bedside Urine Protein - Negative Bedside Urine Urobilinogen - Negative Bedside Urine Nitrite - Negative Bedside Urine Leukocytes - Negative Esterase Imaging Data CT scan - abdomen/pelvis: Radiologist's Impression: PROCEDURE: CT ABDOMEN PELVIS W CON INDICATIONS: LUQ pain. History of lymphoma. TECHNIQUE: After the administration of intravenous contrast, axial sections acquired from the lung bases to the pubic symphysis. Coronal and sagittal reformats were performed. For radiation dose reduction, the following was used: automated exposure control, adjustment of mA and/or kV according to patient size. COMPARISON: CT, CT CHEST ABD PEL W CON, 02/10/2018, 10:02. [facility], [place], PET NECK TO MID THIGH, 05/07/2018, 9:52. [facility], CT, CT CHEST ABD PEL W CON, 09/13/2019, 10:05. [facility], CT, CT KIDNEY URETER BLADDER (KUB), 12/12/2020, 14:11. [facility], CT, ABDOMEN/PELVIS WITH CONTRAST, 10/08/2017, 12:43. FINDINGS: Image quality: Excellent. Lung bases: There are new patchy ground-glass opacities with associated septal thickening within the bilateral lung bases most prominent within the left lower lobe. There is a small hiatal hernia. Heart: Within normal size limits. ABDOMEN: Liver: There is a lobulated cyst redemonstrated in the right hepatic lobe within segment 6. 2 additional small low-density foci within the inferior right hepatic lobe are also redemonstrated. These are too small to characterize but likely represent cysts.. Gallbladder: Surgically absent. Biliary ducts: There is mild biliary ductal dilatation redemonstrated likely reflecting sequelae of prior cholecystectomy. Pancreas: Unremarkable. Spleen: The spleen is normal in size. There is a new wedge-shaped region of hypoenhancement within the spleen likely representing a splenic infarct. No perisplenic collections. Adrenal Glands: Unremarkable. Kidneys and Ureters: Unremarkable. Stomach and Bowel: Stomach, small bowel loops, and colon are unremarkable. There is soft tissue infiltration within the left mesentery with indistinct ground-glass opacities. Findings are similar to the prior studies and likely represent treated lymphoma. Peritoneum: No abnormal intraperitoneal fluid. No free air. Ventral Wall: No hernias. Abdominal Nodes: No retroperitoneal or mesenteric adenopathy by size criteria. Vessels: Aorta and inferior vena cava are normal in size. PELVIS: Pelvic Organs: There is a heterogeneous enlarged prostate with a lobulated nodular component extending into the base of the bladder. The findings are similar to the prior studies. Bladder: Unremarkable. Pelvic Nodes: No enlarged lymph nodes. Miscellaneous: No hernias are seen. Bones: Unremarkable. IMPRESSION: 1. New wedge-shaped area of hypoenhancement in the spleen. 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 The differential includes a splenic laceration although this is considered less likely in the absence of an associated perisplenic hematoma. Recommend correlation with clinical history. 2. New scattered ground-glass opacities with mild septal thickening within the lung bases. The findings likely represent an infectious or inflammatory process such as atypical pneumonia including from viral etiologies. Recommend correlation with clinical history. 3. Heterogeneous enlargement of the prostate with a nodular component extending into the bladder redemonstrated. Dictated by: Tian Mccarthy M.D. on 03/10/2021 at 16:00 Approved by: Tian Mccarthy M.D. on 03/10/2021 at 16:09 Abdominal x-ray: Radiologist's Impression: PROCEDURE: XR ACUTE ABDOMEN SERIES INDICATIONS: constipation / abd cramping TECHNIQUE: One view chest and two views of the abdomen were acquired. COMPARISON: [facility], CT, CT CHEST ABD PEL W CON, 09/13/2019, 10:05. [facility], CT, CT KIDNEY URETER BLADDER (KUB), 12/12/2020, 14:11. [facility], [place], XR CHEST 2V, 02/27/2021, 13:00. FINDINGS: Surgical changes and devices: Cholecystectomy clips are seen. Chest: Generalized interstitial prominence can be seen within the lungs. Heart size is normal. No pleural effusions. No pneumoperitoneum. Abdomen: Bowel gas pattern is normal. There is a moderate amount of stool seen within the proximal colon. No suspicious calcifications. Visualized solid organ contours appear normal. Bones: No suspicious bony lesions. Age-appropriate bony degenerative changes are seen. Mild dextroconvex scoliotic curvature is seen. IMPRESSION: A moderate amount of stool is seen within the proximal colon, which may be related to the given clinical history of constipation. The bowel gas pattern is nonobstructive. Generalized interstitial prominence can be seen within the lungs. Differential diagnosis includes artifact, pulmonary edema, and atypical infection. Postoperative and degenerative changes are seen. Dictated by: Roni Pal M.D. 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 The cause unfortunately unknown. He had a recent diagnosis of COVID this may be related to that it may be related to B-cell lymphoma and medication. It is very on clear what this is from. I have called and spoken with Dr. Murguia surgeon on-call who states his pain management only. He may be managed inpatient or outpatient. Patient is given both options and is opting to go home with pain medication. Called and spoken with Dr. Johnson on-call for Dr. Short who is also updated on symptoms and surgery recommendations. He will be sure to follow-up with patient Discharge Plan Departure Patient Disposition: Home Clinical Impression: Splenic infarct Instructions: Splenectomy Activity Restrictions/Additional Instructions: *You have been diagnosed with splenic infarct *What to do: At this time it is unclear what is causing the damage to your spleen. It may be Hodgkin's lymphoma related, or medication related or even COVID related. At this time treatment is pain management. *Continue to take medications as directed [place] 1 tablet every 4-6 hours if needed for pain (this has 325 mg of Tylenol/acetaminophen in it) *Follow up with your primary care provider in 2-3 days *Return to ER if you should have increasing pain, nausea, vomiting or any new, worsening or concerning symptoms CONTROLLED SUBSTANCE DISCHARGE (Narcotoic/benzodiazepine/Flexeril/Phenergan) 1. You have been prescribed narcotic medications, it does have acetaminophen/Tylenol/paracetamol in it, DO NOT TAKE MORE THAN 4,00mg in 24 hours of Tylenol. TRAMADOL DOES NOT CONTAIN TYLENOL 2. Please understand that we cannot provide further refills of narcotics, benzodiazepines or controlled substances through the ED and her pain management will need to be through your provider. 3. While on these medications you cannot drive or operate heavy machinery. 4. You cannot sign legal documents or perform any duties such as this. 5. As long as you're taking opiate pain medications he should also be taking a stool softener such as Colace, Dulcolax, MiraLAX or prune juice, to help avoid constipation. Prescriptions: New hydrocodone-acetaminophen 5-325 mg tablet 1 tab PO Q6H PRN (Reason: pain) Qty: 10 RF: 0 No Action doxazosin [Cardura] 8 MG tablet 8 mg PO QDAY Qty: 0 RF: 0 candesartan [Atacand] 4 MG tablet 4 mg PO QDAY Qty: 0 RF: 0 lansoprazole 30 MG capsule,delayed release(DR/EC) 30 mg PO QDAY Qty: 0 RF: 0 melatonin 1 mg Tablet 1 mg PO BEDTIME MDD 1 PRN (Reason: Insomnia) RF: 0 multivitamin Tablet 1 tab PO DAILY RF: 0 Probiotic 3 billion cell Tablet,Chewable 1 tab PO DAILY RF: 0 Referrals: Jose Cruz Short MD [Primary Care Provider] -
--- NOTE | 2021-03-10 15:01 | DI.CT.S_ITS ---
PROCEDURE: CT ABDOMEN PELVIS W CON INDICATIONS: LUQ pain. History of lymphoma. TECHNIQUE: After the administration of intravenous contrast, axial sections acquired from the lung bases to the pubic symphysis. Coronal and sagittal reformats were performed. For radiation dose reduction, the following was used: automated exposure control, adjustment of mA and/or kV according to patient size. COMPARISON: CT, CT CHEST ABD PEL W CON, 02/10/2018, 10:02. [facility], [place], PET NECK TO MID THIGH, 05/07/2018, 9:52. [facility], CT, CT CHEST ABD PEL W CON, 09/13/2019, 10:05. [facility], CT, CT KIDNEY URETER BLADDER (KUB), 12/12/2020, 14:11. [facility], CT, ABDOMEN/PELVIS WITH CONTRAST, 10/08/2017, 12:43. FINDINGS: Image quality: Excellent. Lung bases: There are new patchy ground-glass opacities with associated septal thickening within the bilateral lung bases most prominent within the left lower lobe. There is a small hiatal hernia. Heart: Within normal size limits. ABDOMEN: Liver: There is a lobulated cyst redemonstrated in the right hepatic lobe within segment 6. 2 additional small low-density foci within the inferior right hepatic lobe are also redemonstrated. These are too small to characterize but likely represent cysts.. Gallbladder: Surgically absent. Biliary ducts: There is mild biliary ductal dilatation redemonstrated likely reflecting sequelae of prior cholecystectomy. Pancreas: Unremarkable. Spleen: The spleen is normal in size. There is a new wedge-shaped region of hypoenhancement within the spleen likely representing a splenic infarct. No perisplenic collections. Adrenal Glands: Unremarkable. Kidneys and Ureters: Unremarkable. Stomach and Bowel: Stomach, small bowel loops, and colon are unremarkable. There is soft tissue infiltration within the left mesentery with indistinct ground-glass opacities. Findings are similar to the prior studies and likely represent treated lymphoma. Peritoneum: No abnormal intraperitoneal fluid. No free air. Ventral Wall: No hernias. Abdominal Nodes: No retroperitoneal or mesenteric adenopathy by size criteria. Vessels: Aorta and inferior vena cava are normal in size. PELVIS: Pelvic Organs: There is a heterogeneous enlarged prostate with a lobulated nodular component extending into the base of the bladder. The findings are similar to the prior studies. Bladder: Unremarkable. Pelvic Nodes: No enlarged lymph nodes. Miscellaneous: No hernias are seen. Bones: Unremarkable. IMPRESSION: 1. New wedge-shaped area of hypoenhancement in the spleen. 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 The differential includes a splenic laceration although this is considered less likely in the absence of an associated perisplenic hematoma. Recommend correlation with clinical history. 2. New scattered ground-glass opacities with mild septal thickening within the lung bases. The findings likely represent an infectious or inflammatory process such as atypical pneumonia including from viral etiologies. Recommend correlation with clinical history. 3. Heterogeneous enlargement of the prostate with a nodular component extending into the bladder redemonstrated. Dictated by: Tian Mccarthy M.D. on 03/10/2021 at 16:00 Approved by: Tian Mccarthy M.D. on 03/10/2021 at 16:09
[2021-03-10 15:15] LABS: Hematocrit 40.8 % (41-53); Hemoglobin 13.3 g/dL (13.5-17.5); Mean Corpuscular HGB Conc 32.8 % (30-36); Mean Corpuscular Hemoglobin 27.4 PG (26-34); Mean Corpuscular Volume 83.6 fL (80-100); Platelet Count 435 X10^3/uL (150-400); Red Blood Cell Count 4.87 X10^6/uL (4.5-5.9); Red Cell Distribution Width 13.8 % (11.6-14.8); White Blood Cell Count 16.8 X10^3/uL (4.5-11.0)
[2021-03-10] MEDS: KETOROLAC 30 MG/ML VIAL 15 MG IV (15:16)
[2021-03-10] MEDS: SODIUM CHLORIDE 0.9% 1,000 ML 1000 ML IV (15:16)
[2021-03-10 15:19] LABS: Add Manual Diff / Slide Review YES
[2021-03-10 15:34] LABS: Alanine Aminotransferase 119 IU/L (<50); Albumin 3.3 g/dL (3.5-5.0); Albumin Globulin Ratio 1.2 (1.0-2.8); Alkaline Phosphatase 102 U/L (38-126); Aspartate Aminotransferase 39 IU/L (17-59); Bilirubin Total 0.8 mg/dL (0.2-1.3); Blood Urea Nitrogen 32 mg/dL (9-20); Calcium 8.6 mg/dL (8.4-10.2); Carbon Dioxide 25 mmol/L (22-32); Chloride 102 mmol/L (98-107); Estimated Glomerular Filt Rate > 60.0 mL/min (>60); Globulin 2.8 g/dL (1.7-4.1); Glucose 124 mg/dL (80-110); HEMOLYSIS 27 (0-50); Lipase 114 U/L (23-300); Sodium 132 mmol/L (137-145); Total Protein 6.1 g/dL (6.3-8.2)
[2021-03-10 15:36] LABS: Neutrophils Absolute Manual 13608 /uL (3000-5900); Total Cells Counted 100
[2021-03-10 15:37] LABS: RBC Morphology Normal Morphology
[2021-03-10] MEDS: HYDROMORPHONE 0.5 MG INJ IV (16:01)
[2021-03-10 16:34] VITALS: BP 167/84; PULSE 75; O2SAT 96
[2021-03-10] MEDS: HYDROCODONE/ACET 5/325 TABLET 1 TAB PO (18:18)
[2021-03-10] MEDS: HYDROCODONE/ACET 5/325 PREPACK 1 BOTTLE MISC (18:18)
[2021-03-10 19:00] VITALS: BP 170/70; PULSE 68; RESP 14; O2SAT 99
== END 2021-03-10 19:08 | disposition home or self-care (01) ==
PROVIDERS: Emergency Provider Emergency Medicine; Family Provider Family Medicine; PCP Family Medicine
DX: D73.5 Infarction of spleen (principal)
CPT/HCPCS: 36415; 74022; 74177; 80053; 81003; 83690; 85007; 85025; 96361; 96374; 96375; 99284; J1170; J1885; Q9967

== ENCOUNTER 2021-03-11 19:31 | Emergency (ER) | payer MEDICARE, OTHER, SELFPAY ==
[2021-03-11 20:00] VITALS: BP 135/71; PULSE 94; RESP 18; TEMP 37; O2SAT 93
--- NOTE | 2021-03-11 20:16 | ED_ITS ---
HPI - Male Genitourinary General Chief complaint: Urogenital-Male Stated complaint: can't pee Time Seen by Provider: 03/11/21 19:56 Source: patient Mode of arrival: Ambulatory Limitations: no limitations History of Present Illness HPI Narrative: 80-year-old male nonsmoker with history of non-Hodgkin's lymphoma and recent diagnosis of splenic infarct presents with a few hours of difficulty with urinating and suprapubic pain. He states that the pain in his left upper quadrant which prompted him to get evaluated for splenic infarct is gone. He denies any fever or chills. He states he only took 1 opioid pill. He denies any numbness, tingling or weakness and is otherwise well and free of complaint. Related Data Home Medications Medication Instructions Recorded Confirmed doxazosin 8 mg tablet (Cardura) 8 mg PO QDAY #0 12/24/12 12/08/20 candesartan 4 mg tablet (Atacand) 4 mg PO QDAY #0 10/22/17 12/08/20 lansoprazole 30 mg capsule,delayed 30 mg PO QDAY #0 10/22/17 12/08/20 release B.breve-L.acid-L.rham-S. 1 tab PO DAILY 01/19/18 12/08/20 thermophilus 3 billion cell chewable tablet (Probiotic) melatonin 1 mg tablet 1 mg PO BEDTIME PRN MDD 1 01/19/18 12/08/20 multivitamin 1 tab PO DAILY 01/19/18 12/08/20 Previous Rx's Medication Instructions Recorded hydrocodone 5 mg-acetaminophen 325 1 tab PO Q6H PRN #10 tab 03/10/21 mg tablet Allergies Allergy/AdvReac Type Severity Reaction Status Date / Time No Known Drug Allergies Allergy Verified 03/10/21 14:03 Review of Systems Review of Systems Narrative: GENERAL: Denies chills, fatigue, malaise, fever, sweats. HEENT: Denies sinus pain, ear pain, sore throat, difficulty swallowing, dizziness. RESPIRATORY: Denies dyspnea, cough, wheezing, hemoptysis, sputum. CARDIOVASCULAR: Denies chest pain, palpitations, orthopnea, edema, GASTROINTESTINAL: Denies nausea, vomiting, abdominal pain, diarrhea, constipation, melena. : see HPI. MUSCULOSKELETAL: denies weakness, joint pain, or bony pain SKIN: Denies rash, skin lesions, or other NEUROLOGIC: Denies weakness, headache, numbness, change in speech, confusion, seizures, incoordination. PSYCHIATRIC: No concerning psychosocial issues. 12 point review of systems is negative except for those stated above Patient History Medical History Bronchitis Conjunctivitis COVID-19 GERD (gastroesophageal reflux disease) History of deviated nasal septum Hypertension Surgical History Hx laparoscopic cholecystectomy Social History household members: spouse Smoking Status: Never smoker Smoking Status: Never smoker alcohol intake frequency: a few times a week Substance Use Type: does not use Exam Narrative Exam Narrative: GEN: AOx3 and in mild distress EYES: Pupils are equal, round, and reactive to light and accommodation. Extraoccular muscles are intact bilaterally. There is no subconjunctival hemorrhage or exudate. CHEST: Lungs are clear to auscultation bilaterally and free of wheezes, rales, or rhonchi. Heart rate is regular rhythm, there are no murmurs, clicks, rubs, or gallops. There is no chest wall tenderness. ABD: Abdomen is soft and nontender. There is no guarding or rebound. Bowel sounds are normal in all 4 quadrants. There is no mass or organomegaly. EXT: Full painless ROM of all extremities with no loss of sensation or strength. SKIN: Warm, pink, and dry. No erythema or rash Initial Vital Signs Initial Vital Signs: Vital Signs Temperature 98.6 F 03/11/21 20:00 Pulse Rate 94 H 03/11/21 20:00 Respiratory Rate 18 03/11/21 20:00 Blood Pressure 135/71 03/11/21 20:00 Pulse Oximetry 93 03/11/21 20:00 Course Course Course Narrative: Contreras catheter placed and near complete and immediate relief of symptoms Orders Ordered: Discontinued Medications Lidocaine HCl (Lidocaine 2% (Glydo) 6 Ml Gel) 6 ml TOP NOW ONE Stop: 03/11/21 20:29 Last Admin: 03/11/21 20:45 Dose: 6 ml Documented by: JORGE LUIS Vital Signs Vital signs: Vital Signs - 8 hr 03/11/21 20:00 Temperature 98.6 F Pulse Rate 94 H Respiratory Rate 18 Blood Pressure 135/71 Pulse Oximetry 93 Discharge Plan Departure Patient Disposition: Home Clinical Impression: Acute urinary retention Instructions: DI for Urinary Retention in Men Activity Restrictions/Additional Instructions: *You have been diagnosed with [acute urinary retention] *What to do: *Please continue to take your regular medications as directed. [ ] New medication prescriptions sent to your pharmacy: [ ] [ ] New medication written as a paper prescription [x ] No new medications given *Please follow up with your primary care provider in 2-3 days, call for an appointment. Let them know you were seen in the Emergency Department and that we ask that you be seen in follow up. We will electronically transmit a record of today's note if your PCP is in our system *If you do not have a primary care provider please contact the [facility] Resource line at [phone]. They will ask some questions about your medical history and help get you set up with a doctor in the community. *Return to Emergency Department if you should have any new, worsening or concerning symptoms, such as [fever greater than 101 F, shaking chills, worsening pain, persistent vomiting or other bothersome symptoms] Prescriptions: No Action doxazosin [Cardura] 8 MG tablet 8 mg PO QDAY Qty: 0 RF: 0 candesartan [Atacand] 4 MG tablet 4 mg PO QDAY Qty: 0 RF: 0 lansoprazole 30 MG capsule,delayed release(DR/EC) 30 mg PO QDAY Qty: 0 RF: 0 hydrocodone-acetaminophen 5-325 mg tablet 1 tab PO Q6H PRN (Reason: pain) Qty: 10 RF: 0 melatonin 1 mg Tablet 1 mg PO BEDTIME MDD 1 PRN (Reason: Insomnia) RF: 0 multivitamin Tablet 1 tab PO DAILY RF: 0 Probiotic 3 billion cell Tablet,Chewable 1 tab PO DAILY RF: 0 Referrals: Cesar Bledsoe MD [Physician] - Jose Cruz Short MD [Primary Care Provider] -
--- NOTE | 2021-03-11 20:26 | PC.NURSE ---
Patient has known history of BPH and endorses tightness and difficulty urinating. Bladder scan at shows 327; patient wants a bridge to get him to treatment for his BPH and consents to having a catheter.
[2021-03-11] MEDS: LIDOCAINE 2% (GLYDO) 6 ML GEL TOP (20:45)
== END 2021-03-11 21:26 | disposition home or self-care (01) ==
PROVIDERS: Emergency Provider Emergency Medicine; Family Provider Family Medicine; PCP Family Medicine
DX: R33.8 Other retention of urine (principal); R10.12 Left upper quadrant pain
CPT/HCPCS: 51702; 51798; 99283

== ENCOUNTER 2021-03-13 14:06 | Emergency (ER) | payer MEDICARE, OTHER, SELFPAY ==
[2021-03-13 15:09] VITALS: BP 155/69; PULSE 79; RESP 18; TEMP 36.4; O2SAT 98
--- NOTE | 2021-03-13 15:36 | ED_ITS ---
HPI - Recheck/Abnormal Lab/Rx General Chief Complaint: Recheck/Abnormal Lab/Rx Stated Complaint: malfunctioning, leaking catheter Time Seen by Provider: 03/13/21 15:04 Source: patient Mode of arrival: Ambulatory History of Present Illness HPI narrative: Patient is a 80-year-old male with history of recent splenic infarct and urinary tension along with BPH on doxazosin presenting with Contreras catheter problem. A Contreras catheter was placed 03/11/2021. He now states that he is leaking around his Contreras catheter although nursing staff has checked it does it is draining appropriately. He is also having some intermittent pain and urgency. He no longer is having any abdominal pain with his recent splenic infarct. Related Data Home Medications Medication Instructions Recorded Confirmed doxazosin 8 mg tablet (Cardura) 8 mg PO QDAY #0 12/24/12 12/08/20 candesartan 4 mg tablet (Atacand) 4 mg PO QDAY #0 10/22/17 12/08/20 lansoprazole 30 mg capsule,delayed 30 mg PO QDAY #0 10/22/17 12/08/20 release B.breve-L.acid-L.rham-S. 1 tab PO DAILY 01/19/18 12/08/20 thermophilus 3 billion cell chewable tablet (Probiotic) melatonin 1 mg tablet 1 mg PO BEDTIME PRN MDD 1 01/19/18 12/08/20 multivitamin 1 tab PO DAILY 01/19/18 12/08/20 Previous Rx's Medication Instructions Recorded hydrocodone 5 mg-acetaminophen 325 1 tab PO Q6H PRN #10 tab 03/10/21 mg tablet sulfamethoxazole 800 1 tab PO BID 7 Days #14 tab 03/13/21 mg-trimethoprim 160 mg tablet (Bactrim DS) Allergies Allergy/AdvReac Type Severity Reaction Status Date / Time No Known Drug Allergies Allergy Verified 03/10/21 14:03 Review of Systems Review of Systems Narrative: GENERAL: Denies chills, fatigue, malaise, fever, sweats, travel HEENT: Denies sinus pain, ear pain, sore throat, difficulty swallowing, neck pain RESPIRATORY: Denies dyspnea, cough, wheezing, hemoptysis, sputum. CARDIOVASCULAR: Denies chest pain, palpitations, orthopnea, edema GASTROINTESTINAL: Denies nausea, vomiting, abdominal pain, diarrhea, con stipation, melena. : See HPI MUSCULOSKELETAL: Denies weakness, joint pain, or bony pain SKIN: No rash, no erythema, no pruritus NEUROLOGIC: Denies weakness, dizziness, headache, numbness, change in speech, confusion PSYCHIATRIC: No concerning psychosocial issues. 12 point review of systems is negative except for those stated above and HPI Patient History Medical History Bronchitis Conjunctivitis COVID-19 GERD (gastroesophageal reflux disease) History of deviated nasal septum Hypertension Surgical History Hx laparoscopic cholecystectomy Social History household members: spouse Smoking Status: Never smoker Smoking Status: Never smoker alcohol intake frequency: a few times a week Substance Use Type: does not use Exam Initial Vital Signs Initial Vital Signs: Vital Signs Temperature 97.5 F L 03/13/21 15:09 Pulse Rate 79 03/13/21 15:09 Respiratory Rate 18 03/13/21 15:09 Blood Pressure 155/69 H 03/13/21 15:09 Pulse Oximetry 98 03/13/21 15:09 GENERAL: Well-appearing, well-nourished and in no acute distress. CARDIOVASCULAR: peripheral pulses in tact, cap refill <2 sec RESPIRATORY: No respiratory distress, speaks in full sentences without difficulty ABDOMEN: Soft, nontender, no guarding or rebound, no left upper quadrant pain EXTREMITIES: Normal range of motion, no clubbing or edema. Neurovascularly intact NEUROLOGICAL: Cranial nerves II through XII grossly intact. Normal gait and speech. SKIN: Warm, dry, no petechiae, no rashes or lesions. Course Orders Ordered: ED Orders 03/13/21 15:40 Urinalysis and Microscopic Stat Urine Culture Stat Discontinued Medications Lidocaine HCl (Lidocaine 2% (Glydo) 6 Ml Gel) 6 ml TOP NOW ONE Stop: 03/13/21 15:36 Last Admin: 03/13/21 15:43 Dose: 6 ml Documented by: MICHAEL Vital Signs Vital signs: Vital Signs - 8 hr 03/13/21 15:09 03/13/21 16:42 Temperature 97.5 F L 97.9 F Pulse Rate 79 70 Respiratory Rate 18 16 Blood Pressure 155/69 H 127/64 Pulse Oximetry 98 99 MDM - Recheck/Abnormal Lab/Rx Lab Data Labs: Lab Results 03/13/21 Range/Units 15:40 Urine Color Yellow Urine Appearance Clear Urine pH 5.0 (4.5-8.0) Ur Specific [place] 1.015 (1.000-1.035) Urine Protein Trace H (Negative) Urine Glucose (UA) Negative (Negative) g/dL Urine Ketones Negative (NEGATIVE) Urine Occult Blood 3+ H (Negative) Urine Nitrate Negative (Negative) Urine Bilirubin Negative (NEGATIVE) Urine Urobilinogen 0.2 (0.2) E.U./dL Ur Leukocyte Esterase 1+ H (NEGATIVE) Urine RBC 10-30/hpf H (0-5/HPF) Urine WBC 1-5/hpf (0-5/HPF) Ur Squamous Epith Cells 0-1 /hpf (0-5/HPF) Urine Bacteria Few (2-10) H (None) Ur Culture Indicated? Specimen cultured [facility] Narrative Medical decision making narrative: Contreras catheter was replaced with a bigger 1 to see if it helps with leaking. He has a known BPH and apparently is supposed to have a TURP sometime in the near future. Urine does have bacteria in it with recent Contreras catheter will start him on antibiotics. Overall does not seem septic Discharge Plan Departure Patient Disposition: Home Clinical Impression: Complication of Contreras catheter Qualifiers: Encounter type: initial encounter Qualified Code(s): T83.9XXA - Unspecified complication of genitourinary prosthetic device, implant and graft, initial encounter Instructions: How to Care for Your Contreras Catheter -- Male Activity Restrictions/Additional Instructions: *You have been diagnosed with Contreras catheter problem, UTI *What to do: At this time please follow-up with your urologist as scheduled. I hope that a bigger catheter solves the problem. *Continue to take medications as directed Bactrim 1 tablet twice a day for 7 days --> SENT TO [facility] *Follow up with your primary care provider this week as scheduled *Return to ER if you should have increasing abdominal pain, Contreras catheter issue or any new, worsening or concerning symptoms Prescriptions: New sulfamethoxazole-trimethoprim [Bactrim DS] 800-160 mg tablet 1 tab PO BID 7 Days Qty: 14 RF: 0 No Action doxazosin [Cardura] 8 MG tablet 8 mg PO QDAY Qty: 0 RF: 0 candesartan [Atacand] 4 MG tablet 4 mg PO QDAY Qty: 0 RF: 0 lansoprazole 30 MG capsule,delayed release(DR/EC) 30 mg PO QDAY Qty: 0 RF: 0 hydrocodone-acetaminophen 5-325 mg tablet 1 tab PO Q6H PRN (Reason: pain) Qty: 10 RF: 0 melatonin 1 mg Tablet 1 mg PO BEDTIME MDD 1 PRN (Reason: Insomnia) RF: 0 multivitamin Tablet 1 tab PO DAILY RF: 0 Probiotic 3 billion cell Tablet,Chewable 1 tab PO DAILY RF: 0 Referrals: Jose Cruz Short MD [Primary Care Provider] -
[2021-03-13] MEDS: LIDOCAINE 2% (GLYDO) 6 ML GEL TOP (15:43)
[2021-03-13 16:19] LABS: Appearance Urine UA CLEAR; Bilirubin Urine UA NEGATIVE (NEGATIVE); Color Urine UA YELLOW; Glucose Urine UA NEGATIVE (Negative); Ketones Urine UA NEGATIVE (NEGATIVE); Leukocyte Esterase Urine UA 1+ (NEGATIVE); Nitrite Urine UA NEGATIVE (Negative); Occult Blood Urine UA 3+ (Negative); Protein Urine UA TRACE (Negative); Specific Gravity Urine UA 1.015 (1.000-1.035); Urobilinogen Urine UA 0.2 E.U./dL (0.2)
[2021-03-13 16:26] LABS: Bacteria Urine Few (2-10); Culture Indicated Urine Specimen Cultured; RBC Urine 10-30/HPF (0-5/HPF); Squamous Epithelial Cell Urine 0-1 /HPF (0-5/HPF); WBC Urine 1-5/HPF (0-5/HPF)
[2021-03-13 16:42] VITALS: BP 127/64; PULSE 70; RESP 16; TEMP 36.6; O2SAT 99
== END 2021-03-13 16:42 | disposition home or self-care (01) ==
PROVIDERS: Emergency Provider Emergency Medicine; Family Provider Family Medicine; PCP Family Medicine
DX: T83.038A Leakage of other urinary catheter, initial encounter (principal); N39.0 Urinary tract infection, site not specified
CPT/HCPCS: 51702; 81001; 87086; 99283; 99284

== ENCOUNTER → 2021-07-11 10:58 | Outpatient (CLI) | payer MEDICARE, OTHER, SELFPAY ==
--- NOTE | 2021-07-11 | DI.RAD.S_ITS ---
PROCEDURE: XR CHEST 2V INDICATIONS: DYSPNEA, HISTORY OF COVID TECHNIQUE: 2 views of the chest were acquired. COMPARISON: [facility], CR, XR CHEST 2V, 02/27/2021, 13:00. FINDINGS: Surgical changes and devices: None. Lungs and pleura: Biapical pleural thickening/scarring. No consolidation, pleural effusions or pneumothorax. Mediastinum: Mediastinal contours are normal. Heart size is normal. Bones and chest wall: No suspicious bony abnormalities. Soft tissues appear unremarkable. IMPRESSION: No acute cardiopulmonary abnormality. Dictated by: Alexei Pearson M.D. on 07/11/2021 at 11:11 Approved by: Alexei Pearson M.D. on 07/11/2021 at 11:12
== END ==
PROVIDERS: Family Provider Family Medicine; PCP Family Medicine; Referring Provider Family Medicine; Visit Provider Family Medicine
DX: R06.00 Dyspnea, unspecified (principal); Z86.16 Personal history of COVID-19
CPT/HCPCS: 71046

== ENCOUNTER → 2021-07-15 11:27 | Outpatient (CLI) | payer MEDICARE, OTHER, SELFPAY ==
--- NOTE | 2021-07-15 | DI.RAD.S_ITS ---
PROCEDURE: XR THORACIC SPINE 3V INDICATIONS: BACK PAIN TECHNIQUE: 3 views of the thoracic spine were acquired. COMPARISON: [facility], THORACO-LUMBAR SPINE 2 VIEWS, 01/13/2007, 14:15. FINDINGS: Bones: No acute fracture. Multilevel degenerative endplate sclerosis and spurring. Diffuse facet arthropathy. Diffuse mild narrowing of the disc spaces. There is severe L1-L2 and L2-L3 disc space narrowing. Soft tissues: No paravertebral stripe thickening. IMPRESSION: No acute fracture. Diffuse discogenic changes as above. Dictated by: Fady Bradford M.D. on 07/15/2021 at 15:45 Approved by: Fady Bradford M.D. on 07/15/2021 at 16:00
== END ==
PROVIDERS: Family Provider Family Medicine; PCP Family Medicine; Referring Provider Family Medicine; Visit Provider Family Medicine
DX: M54.50 Low back pain, unspecified (principal); M47.816 Spondylosis without myelopathy or radiculopathy, lumbar region
CPT/HCPCS: 72072

== ENCOUNTER → 2021-09-18 08:17 | Outpatient (CLI) | payer MEDICARE, OTHER, SELFPAY ==
--- NOTE | 2021-09-18 09:18 | DI.CT.S_ITS ---
PROCEDURE: CT CHEST ABD PEL W CON INDICATIONS: lymphoma, post treatment monitoring TECHNIQUE: After the administration of oral and intravenous contrast, axial sections acquired from the supraclavicular neck to the pubic symphysis. Coronal and sagittal reformats were performed. For radiation dose reduction, the following was used: automated exposure control, adjustment of mA and/or kV according to patient size. COMPARISON:[facility], CT, CT KIDNEY URETER BLADDER (KUB), 12/12/2020, 14:11. [facility], CT, CT ABDOMEN PELVIS W CON, 03/10/2021, 15:43. [facility], CT, CT CHEST ABD PEL W CON, 09/13/2019, 10:05. FINDINGS: Image quality: Excellent. CHEST: Lower Neck: No enlarged lymph nodes. Thyroid: Within normal limits. Axillae: No enlarged lymph nodes. Chest Wall: Unremarkable. Lungs and Airways: Stable lung nodules. Nodule 1: 7 mm; right minor fissure; series 3, image 155; solid. Nodule 2: 4 mm; lingula; series 3, image 193; solid. There are bilateral ground-glass infiltrates and associated subpleural septal thickening, new since the last chest CT dated 09/13/2019, but appears similar compared to partially visualized abnormality seen the most recent abdominal CT dated 03/10/2021. Pleura: No pneumothorax or pleural effusions. Heart: Heart size is normal. No pericardial effusion. Small pericardial effusion. Thoracic Vessels: The aorta and pulmonary arteries demonstrate normal size. Mediastinum and [place]: No enlarged lymph nodes. Esophagus: No wall thickening. Small hiatal hernia. ABDOMEN: Liver: Normal size. Again noted is a 1.2 x 1.0 cement hypodensity in the posterior right hepatic lobe, most likely a cyst or hemangioma. Mild hepatic steatosis. Gallbladder: Surgically resected. Biliary ducts: Unremarkable. Pancreas: Unremarkable. Spleen: Normal size. Wedge-shaped hypodensity in spleen is decreased, compatible with chronic splenic infarct. Adrenal Glands: Unremarkable. Kidneys and Ureters: Unremarkable. Stomach and Bowel: Stomach, small bowel loops, and colon are normal in caliber. A large amount of stool in colon. Mild diverticulosis without diverticulitis. Peritoneum: No abnormal intraperitoneal fluid. No free air. Ventral Wall: No hernia. Abdominal Nodes: There is a 1.5 cm mesenteric nodule left of the midline (series 2, image 83), slightly decreased compared to the last CT dated 03/10/2021. There is mesenteric stranding, also unchanged. Vessels: Aorta and inferior vena cava are normal in size. PELVIS: Pelvic Organs: Prostate is enlarged. Bladder: Concentric thickening of urinary bladder. Pelvic Nodes: No enlarged lymph nodes. Miscellaneous: No inguinal hernias are seen. Bones: Severe degenerative changes in lumbar spine. IMPRESSION: 1. Stable 1.5 cm mesenteric nodule and mesenteric stranding, consistent with treated lymphoma. 2. No new parrish disease in thorax, abdomen or pelvis. 3. Stable pulmonary nodules. 4. Bilateral ground-glass infiltrates, most likely inflammatory (? Drug toxicity) or infectious etiology. Recommend clinical correlation. 5. Chronic splenic infarct. 6. Concentric thickening of urinary bladder. The finding may be secondary to chronic bladder outlet obstruction or cystitis. 7. Enlarged prostate. Dictated by: Cathryn Teran M.D. on 09/18/2021 at 13:34 Approved by: Cathryn Teran M.D. on 09/19/2021 at 9:34
== END ==
PROVIDERS: Family Provider Family Medicine; PCP Family Medicine; Referring Provider Internal Medicine Medical Oncology; Visit Provider Internal Medicine Medical Oncology
DX: C85.90 Non-Hodgkin lymphoma, unspecified, unspecified site (principal); D73.5 Infarction of spleen; N40.0 Benign prostatic hyperplasia without lower urinary tract symptoms; R91.8 Other nonspecific abnormal finding of lung field
CPT/HCPCS: 71260; 74177

== ENCOUNTER → 2022-10-03 17:26 | Outpatient (CLI) | payer MEDICARE, OTHER, SELFPAY ==
--- NOTE | 2022-10-03 17:27 | DI.US.S_ITS ---
PROCEDURE: US EXTREMITY NONVASC LOWER RT INDICATIONS: RIGHT INNER THIGH MASS VS PULLED MUSCLE TECHNIQUE: Real-time scanning was performed of the medial right lower extremity, with image documentation. COMPARISON: None. FINDINGS: Ultrasound evaluation in in the area of clinical concern demonstrates no discrete cystic or solid mass. No intramuscular hematoma collection identified. IMPRESSION: 1. No discrete mass or hematoma collection identified in the area of palpable abnormality. Recommend clinical follow-up and if indicated further evaluation may be obtained with MRI. Dictated by: Tian Mccarthy M.D. on 10/04/2022 at 2:49 Approved by: Tian Mccarhty M.D. on 10/04/2022 at 2:51
== END ==
PROVIDERS: Family Provider Family Medicine; PCP Family Medicine; Referring Provider Internal Medicine Medical Oncology; Visit Provider Internal Medicine Medical Oncology
DX: M62.89 Other specified disorders of muscle (principal); Z85.72 Personal history of non-Hodgkin lymphomas
CPT/HCPCS: 76882

== ENCOUNTER 2024-10-13 06:35 | Day surgery (SDC) | payer MEDICARE, OTHER, SELFPAY ==
[2024-10-13] MEDS: LACTATED RINGERS 1,000 ML 42 ML IV (06:55)
[2024-10-13 07:07] VITALS: BP 142/81; PULSE 100; RESP 20; TEMP 36.6; O2SAT 99; BMI 23.8
--- NOTE | 2024-10-13 07:44 | P.HP_ITS ---
History of Present Illness History of Present Illness Date Patient Seen: 10/13/24 Time Patient Seen: 07:44 Chief complaint: Colonoscopy Narrative: Madan is an 84-year-old man here for colonoscopy. See the office note from August for details. [facility] Medical History Bronchitis Conjunctivitis COVID-19 GERD (gastroesophageal reflux disease) History of deviated nasal septum Hypertension Surgical History Hx laparoscopic cholecystectomy Social History household members: spouse Smoking Status: Never smoker Meds Home Medications and Allergies Home Medications Medication Instructions Recorded Confirmed Type lansoprazole 30 mg capsule,delayed 30 mg PO QDAY ##0 10/22/17 10/13/24 History release L.acidophilus,rhamnosus-B.breve-S.thermophilus 1 tab PO DAILY 01/19/18 08/17/24 History 3 billion cell chew tab (Probiotic) multivitamin 1 tab PO DAILY 01/19/18 08/17/24 History ascorbic acid (vitamin C) 500 mg 500 mg PO DAILY 01/07/22 08/17/24 History tablet (Vitamin C) candesartan 4 mg tablet 4 mg PO DAILY 01/07/22 10/13/24 History diltiazem HCl 120 mg 120 mg PO DAILY 10/13/24 10/13/24 History capsule,extended release 24 hr (Cartia XT) Allergies Allergy/AdvReac Type Severity Reaction Status Date / Time No Known Drug Allergies Allergy Verified 10/13/24 06:59 Exam Vital Signs (past 8 hours): - 10/13/24 07:07 Temperature 97.9 F Pulse Rate 100 H Respiratory Rate 20 Blood Pressure 142/81 H Pulse Oximetry 99 Oxygen Delivery Method Room Air Oxygen Delivery Method Room Air Const General: healthy appearing Assessment & Plan Assessment and plan (1) History of colon polyps: Status: Acute Plan Colonoscopy Time-Based Coding :: [TOTAL MINUTES] spent with patient and on the chart (including review of chart, obtaining history, exam, reviewing outside data, placing orders, documenting exam and treatment plan, and counseling patient) on [DATE]. [employer] Document charge(s): No
[2024-10-13 08:10] VITALS: BP 117/64; PULSE 83; RESP 15; TEMP 36.5; O2SAT 92
--- NOTE | 2024-10-13 08:14 | PM.OP.COLON ---
Operative Date/Time/Diagnoses Date of procedure: 10/13/24 Time of procedure: 08:14 Pre-op diagnosis: History of polyps Post-op diagnosis: same Procedure & Clinicians Study performed: Colonoscopy Same procedure as scheduled: Yes Surgeon: Otto Gracia Procedure Notes Procedure in detail: Surgeon: Otto Gracia MD Anesthesia: Gilma Lea CRNA Procedure: The patient was brought to the endoscopy suite, placed in left lateral decubitus position. The patient was connected to monitoring devices. A time-out was performed. Sedation was administered. Once the patient was adequately sedated, a digital rectal exam was performed and was normal. The scope was then inserted and advanced to the cecum where the appendiceal orifice was identified and photographed. The scope was then slowly withdrawn over greater than 6 minutes. The mucosa was thoroughly inspected. No abnormalities were found. The scope was retroflexed in the rectum. The scope was straightened and removed. The patient was awakened and brought to recovery. Scope withdrawal time: 6 minutes Sedation time: 19 minutes EBL: 0 Findings: Normal colon Post-procedure Disposition: PACU
[2024-10-13 08:15] VITALS: BP 119/65; PULSE 80; RESP 16; O2SAT 98
[2024-10-13 08:20] VITALS: BP 121/71; PULSE 78; RESP 17; O2SAT 99
[2024-10-13 08:28] VITALS: BP 122/80; PULSE 80; RESP 16; TEMP 36.6; O2SAT 98
== END 2024-10-13 08:36 | disposition home or self-care (01) ==
PROVIDERS: Family Provider Family Medicine; PCP Family Medicine; Referring Provider Surgery; Visit Provider Surgery
PROC: 0DJD8ZZ Inspection of Lower Intestinal Tract, Via Natural or Artificial Opening Endoscopic (ICD-10-PCS; CPT 45378; principal; 2024-10-13 07:45)
DX: Z12.11 Encounter for screening for malignant neoplasm of colon (principal); Z86.0100 Personal history of colon polyps, unspecified
CPT/HCPCS: G0105; J2704